=== PATIENT | female | born 1935 | race Caucasian/White ===

== ENCOUNTER 2018-06-19 11:09 | Observation (INO) | payer OTHER ==
[2018-06-19] MEDS ORDERED: ALBUTEROL 2.5 MG/3 ML NEB SOL IH PRN (12:21)
[2018-06-19 12:31] VITALS: O2SAT 99; BMI 34.4
[2018-06-19 12:40] LABS: Absolute Lymphocytes (CBC) 1.3 K/uL (0.7-4.9); Absolute Monocytes 0.4 K/uL (0.1-1.3); Absolute Neutrophil 3.5 K/uL (1.8-8.0); Basophils % 0.6 % (0-1.3); Eosinophils % 3.6 % (0-4.4); Hematocrit 42.5 % (36.0-45.0); Lymphocytes % 23.7 % (15.3-44.8); MCH 29.8 pg (27.0-35.0); MCV 88.6 fL (80-100); Monocytes % 7.3 % (3.3-12.3); RBC Red Blood Cell Count 4.79 M/uL (3.86-4.86)
[2018-06-19 12:54] LABS: Protime INR 0.92
[2018-06-19] MEDS ORDERED: LOPERAMIDE HCL 2 MG CAPSULE PO PRN (13:00)
[2018-06-19] MEDS ORDERED: ONDANSETRON 4 MG/2 ML VIAL IV PRN (13:00)
[2018-06-19] MEDS ORDERED: DIPHENHYDRAMINE 25 MG TAB/CAP PO PRN (13:00)
[2018-06-19] MEDS ORDERED: NACHLORIDE 0.45% 1,000 ML IV SCH (13:00)
[2018-06-19] MEDS ORDERED: ONDANSETRON 4 MG (ODT) TAB PO PRN (13:00)
[2018-06-19] MEDS ORDERED: POLYETHYL GLY 3350 17 GM/DOSE PO PRN (13:00)
[2018-06-19 13:02] LABS: ALT/SGPT 35 U/L (12-78); AST/SGOT 21 U/L (15-37); Alkaline Phosphatase 109 U/L (45-117); BUN Blood Urea Nitrogen 18 mg/dL (7-18); Bicarbonate 30 mmol/L (21-32); Bilirubin Direct 0.2 mg/dL (0-0.2); Bilirubin Total 0.8 mg/dL (0.2-1.0); CKMB Creatine Kinase MB 1.8 ng/mL (0.3-3.6); Creatine Phosphokinase 103 U/L (26-192); Glucose Level 169 mg/dL (74-106); Magnesium 2.1 mg/dL (1.8-2.4); Phosphorus 2.9 mg/dL (2.5-4.9); Potassium 4.6 mmol/L (3.5-5.1); Protein, Total 7.5 g/dL (6.4-8.2); Sodium Level 140 mmol/L (136-145); Thyroid Stimulating Hormone 0.309 uIU/mL (0.360-3.740); Troponin I < 0.02 ng/mL (0.0-0.045)
--- NOTE | 2018-06-19 14:11 | RAD REPORT ---
EXAM DESCRIPTION: RAD - Chest Pa And Lat (2 Views) - 06/19/2018 2:03 pm CLINICAL HISTORY: chest pain Chest pain. COMPARISON: CHEST PA AND LAT 2 VIEW dated 05/03/2015 FINDINGS: The lungs are emphysematous but clear. The heart is normal in size. No displaced fractures . IMPRESSION: COPD.
[2018-06-19] MEDS: ENOXAPARIN 80 MG/0.8 ML SQ SCH ×2 (14:12→22:28)
[2018-06-19] MEDS: IPRATROPIUM BROM 0.5MG/2.5ML IH SCH ×2 (15:05→20:12)
[2018-06-19] MEDS: LEVALBUTEROL 1.25 MG/3 ML NEB IH SCH ×2 (15:05→20:00)
[2018-06-19] MEDS ORDERED: GLUCAGON 1 MG/VIAL IM PRN (15:57)
[2018-06-19] MEDS ORDERED: D50W 25 GM/50 ML SYRINGE IV PRN (15:57)
[2018-06-19] MEDS: INSULIN -REGULAR HUMAN 50 UNIT/0.5 ML ML SQ SCH ×3 (16:30→22:38)
[2018-06-19 16:42] LABS: Urine Appearance CLEAR; Urine Bilirubin NEGATIVE (NEG); Urine Blood NEGATIVE (NEG); Urine Color YELLOW; Urine Glucose TRACE (NEG); Urine Protein NEGATIVE (NEG); Urine Urobilinogen 0.2 mg/dL (0.2-1.0)
[2018-06-19 16:51] LABS: Urine Microscopic Reflex NO UMIC
[2018-06-19] MEDS: ACETAMINOPHEN 325 MG TABLET PO PRN (16:55)
[2018-06-19 17:03] LABS: UR MICROALBUMIN 0.7 mg/dL (< 1.9)
[2018-06-19] MEDS ORDERED: HOME MED 1 EA UNK (Albuterol Inhaler [Ventolin Inhaler*] 2 PUFF) IN PRN (17:03)
[2018-06-19] MEDS ORDERED: HOME MED 1 EA UNK (Prednisone [Sterapred Ds] 10 MG) PO PRN (17:03)
--- NOTE | 2018-06-19 19:25 | EKG ---
Test Date: 2018-06-19 Test Time: 11:55:03 Rail Track Maintainer: BG MEASUREMENT RESULTS: Intervals: Rate: 74 NM: 170 QRSD: 92 QT: 394 QTc: 437 [place]: P: 57 NM: 170 QRS: 8 T: 74 INTERPRETIVE STATEMENTS: Normal sinus rhythm Anteroseptal infarct, age undetermined Abnormal ECG No previous ECG available for comparison Electronically Signed On 06-19-18 19:22:51 CDT by Zay Melendrez
[2018-06-19 20:47] LABS: CKMB Creatine Kinase MB 1.5 ng/mL (0.3-3.6); Creatine Phosphokinase 97 U/L (26-192); Troponin I < 0.02 ng/mL (0.0-0.045)
[2018-06-19] MEDS ORDERED: HOME MED 1 EA UNK (Simvastatin [Simvastatin] 20 MG) PO SCH (21:00)
[2018-06-19] MEDS ORDERED: ATORVASTATIN 10 MG TAB PO SCH (21:00)
[2018-06-20] MEDS: LEVALBUTEROL 1.25 MG/3 ML NEB IH SCH ×2 (02:00→08:10)
[2018-06-20] MEDS: IPRATROPIUM BROM 0.5MG/2.5ML IH SCH ×2 (02:00→08:10)
[2018-06-20] MEDS: ACETAMINOPHEN 325 MG TABLET PO PRN ×2 (03:33→10:41)
[2018-06-20 04:43] LABS: Absolute Lymphocytes (CBC) 1.8 K/uL (0.7-4.9); Absolute Monocytes 0.5 K/uL (0.1-1.3); Absolute Neutrophil 2.7 K/uL (1.8-8.0); Basophils % 0.9 % (0-1.3); Eosinophils % 5.3 % (0-4.4); Hematocrit 38.8 % (36.0-45.0); Lymphocytes % 33.3 % (15.3-44.8); MCH 30.6 pg (27.0-35.0); MCV 88.5 fL (80-100); MPV 8.1 fL (7.6-11.3); Monocytes % 9.5 % (3.3-12.3); RBC Red Blood Cell Count 4.38 M/uL (3.86-4.86)
[2018-06-20 04:51] LABS: Potassium 3.6 mmol/L (3.5-5.1)
[2018-06-20 04:56] LABS: CKMB Creatine Kinase MB 1.7 ng/mL (0.3-3.6); Creatine Phosphokinase 127 U/L (26-192); Troponin I < 0.02 ng/mL (0.0-0.045)
[2018-06-20] MEDS ORDERED: PANTOPRAZOLE 40MG TABLET PO SCH (07:30)
[2018-06-20] MEDS: INSULIN -REGULAR HUMAN 50 UNIT/0.5 ML ML SQ SCH ×2 (07:30→11:30)
[2018-06-20] MEDS ORDERED: METFORMIN ER 500 MG TAB PO SCH (08:00)
[2018-06-20] MEDS ORDERED: GLIMEPIRIDE 2 MG TABLET PO SCH (08:00)
[2018-06-20] MEDS ORDERED: REGADENOSON 0.4 MG/5 ML SYR IV ONE (08:10)
[2018-06-20] MEDS ORDERED: ASPIRIN 81 MG CHEWABLE TABLET PO SCH (09:00)
[2018-06-20] MEDS ORDERED: DRISDOL (VITAMIN D=ERGOCALCIFEROL) 50000 UNIT CAP PO SCH (09:00)
[2018-06-20] MEDS ORDERED: POTASSIUM 25 MEQ EFFERV TAB PO ONE (09:00)
[2018-06-20] MEDS ORDERED: CLOPIDOGREL 75 MG TABLET PO SCH (09:00)
[2018-06-20] MEDS ORDERED: HOME MED 1 EA UNK (Umeclidinium Brm/Vilanterol Tr [Anoro Ellipta 62.5-25 Mcg Inh] 1 PUFF) IN SCH (09:00)
[2018-06-20] MEDS ORDERED: HOME MED 1 EA UNK (Omeprazole [Prilosec] 40 MG) PO SCH (09:00)
[2018-06-20] MEDS ORDERED: MAXZIDE (HCTZ 25/TRIAMTERENE 37.5MG) TAB PO SCH (09:00)
[2018-06-20] MEDS: ENOXAPARIN 80 MG/0.8 ML SQ SCH (10:45)
--- NOTE | 2018-06-20 11:10 | RAD REPORT ---
EXAM DESCRIPTION: NM - Rest Stress Cardiac Imaging - 06/20/2018 10:30 am CLINICAL HISTORY: Chest pain COMPARISON: None. TECHNIQUE: The patient was administered 10.8 mCi of Tc 99m Sestamibi prior to resting SPECT imaging of the heart. The patient was then administered 31.1 mCi of Tc 99m Sestamibi following exercise or ph armacologic stress. Multiplanar SPECT images were reviewed. FINDINGS: The end diastolic volume is 60 ml, the end systolic volume is 15 ml, and the ejection frac tion is 75 %. No stress-induced ischemic changes are identifiable. Diminished activity along the inferior wall is b elieved to be attenuation artifact from diaphragm. No ventricular dilatation. IMPRESSION: No stress-induced ischemia or other significant finding. Ventricular volumes and ejection fraction are normal range.
[2018-06-20 12:45] VITALS: BP 172/65; TEMP 98
--- NOTE | 2018-06-20 15:44 | ECHO ---
HEIGHT: 5 ft 2 in WEIGHT: 185 lb 11.2 oz DATE OF STUDY: 06/20/[address]: Zay Melendrez MD 2-DIMENSIONAL: YES M.MODE: YES DOPPLER: YES COLOR FLOW: YES TDS: YES PORTABLE: DEFINITY: BUBBLE STUDY: DIAGNOSIS: CHEST PAIN CARDIAC HISTORY: CATHERIZATION: NO SURGERY: NO PROSTHETIC VALVE: NO PACEMAKER: NO MEASUREMENTS (cm) DIASTOLIC (NORMALS) SYSTOLIC (NORMALS) IVSd 1.1 (0.6-1.2) LA Diam 3.7 (1.9-4.0) LVEF 68% LVIDd 3.7 (3.5-5.7) LVIDs 2.3 (2.0-3.5) %FS 37% LVPWd 1.1 (0.6-1.2) Ao Diam 3.1 (2.0-3.7) 2 DIMENSIONAL ASSESSMENT: RIGHT ATRIUM: NORMAL LEFT ATRIUM: NORMAL RIGHT VENTRICLE: NORMAL LEFT VENTRICLE: NORMAL TRICUSPID VALVE: NORMAL MITRAL VALVE: NORMAL PULMONIC VALVE: NORMAL AORTIC VALVE: NORMAL PERICARDIAL EFFUSION: NONE AORTIC ROOT: NORMAL LEFT VENTRICULAR WALL MOTION: NORMAL DOPPLER/COLOR FLOW: NORMAL COMMENTS: NORMAL TWO DIMENSIONAL ECHOCARDIOGRAM WITH DOPPLER. NO WALL MOTION ABNORMALITY. NO EFFUSION. TECHNOLOGIST: RILEY HARMON
--- NOTE | 2018-06-20 15:53 | TREADPHA ---
DX: CHEST PAIN Date of Study: 06/20/2018 Ht: 5 2 Wt: 185 lb 11.2 oz Consulting Physician: WILFREDO MEDICATIONS: TYLENOL, ASPIRIN, PROVENTIL, PLAVIX, DEXTROSE, LOVENOX, AMARYL, GLUCAGEN, ATROVENT, ZOFRAN, PROTONIX. HISTORY: 82 YEAR OLD FEMALE WITH COMPLAINTS OF CHEST PAIN. MEDICAL HISTORY OF COPD, BREAST AND LUNG CANCER, CORONARY ARTERY DISEASE, DIABETES MELLITUS, HYPERTENSION AND TRANSIENT ISCHEMIC ATTACK. PHYSICIAL EXAMINATION: RESTING B.P.: 181/84 RESTING H.R.: 82 RESTING EKG: NORMAL SINUS RHYTHM, POSSIBLE OLD ANTERIOR MYOCARDIAL INFARCTION. PROTOCOL: LEXISCAN EXERCISE TIME: 3:30 B.P. AT PEAK STRESS: 157/74 IMPRESSION: LEXISCAN STRESS TEST PERFORMED. CARDIOLITE INJECTED PER PROTOCOL. SEE NUCLEAR MEDICINE REPORT. NO SUPRAVENTRICULAR OR VENTRICULAR TACHYCARDIA. ONE PREMATURE VENTRICULAR COMPLEX PRIOR TO INJECTION OF LEXISCAN. DENIES ANY CHEST PAIN.
--- NOTE | 2018-06-22 07:04 | CON ---
Date of Consultation: 06/20/[address] Diaz's service on 06/19/2018. Reason For Consultation: Chest pain. History Of Present Illness: The patient is an 82-year-old. She has multiple medical problems includ ing history of lung cancer and breast cancer and has been having back pain for about a month that rad iated to the chest. No nausea, vomiting, diaphoresis, PND, orthopnea, pedal edema, palpitations, or syncope. Pain was stabbing. Allergies: SHE IS ALLERGIC TO AMOXICILLIN AND CODEINE. Review of Systems: Negative. Social History: Negative. Family History: Noncontributory. Past Medical History: Include diabetes, COPD, gastroesophageal reflux disease, hypertension, and dys lipidemia. Medications: Include inhalers, Plavix, glimepiride, metformin, Prilosec, triamterene with hydrochlor othiazide, and Zocor. Physical Examination: General: Very pleasant, alert, oriented x3. No acute distress. Sinus rhythm, afebrile. HEENT: Negative. Neck: Supple with no bruit. Chest: Clear to auscultation and percussion. Cardiac Exam: Revealed a regular rhythm and rate with an S4 gallops. Aortic sclerosis murmur. No g allops or rubs. Abdomen: Benign. Extremities: Revealed no clubbing, cyanosis, or edema. Diagnostic Data: Her diagnostic data were pretty normal except for a TSH, being slightly low at 0.3. Her glucose is 166. Impression And Plan: 1.Atypical chest pain, most likely gastric or gastroesophageal in nature, certainly could be related to her thoracic spine as well. 2.Diabetes. 3.Gastroesophageal reflux disease. 4.Dyslipidemia. 5.Hypertension. 6.Chronic obstructive pulmonary disease. 7.History of lung cancer. 8.History of breast cancer. I recommend an echocardiogram and Lexiscan on Ms. Hernandez before she goes home. I will discuss the case further with Dr. Diaz. I agree with his present assessment and plan. VILLA/BERT Voice ID: [id number] Report ID: [id number]
== END 2018-06-20 13:05 | disposition home or self-care (01) ==
LOC: 4TH 11:18
PROVIDERS: ADMIT Internal Medicine; ATTEND Internal Medicine
DX: R07.89 Other chest pain (principal); E11.9 Type 2 diabetes mellitus without complications; J44.9 Chronic obstructive pulmonary disease, unspecified; K21.9 Gastro-esophageal reflux disease without esophagitis; I10 Essential (primary) hypertension; E78.5 Hyperlipidemia, unspecified; Z85.118 Personal history of other malignant neoplasm of bronchus and lung; Z85.3 Personal history of malignant neoplasm of breast; Z88.0 Allergy status to penicillin
CPT/HCPCS: 36415 ×2; 71046; 78452; 80048 ×2; 80076; 81003; 82043; 82306; 82550 ×3; 82553 ×3; 82570; 82607; 82962 ×5; 83036; 83735 ×2; 84100; 84443; 84484 ×3; 85025 ×2; 85610; 85730; 87086; 87088; 93005; 93017; 93306; 94640; A9500; G0378; G0379; J1650 ×3; J2785

== ENCOUNTER 2019-12-22 12:48 | Emergency (ER) | payer OTHER ==
[2019-12-22] MEDS ORDERED: ONDANSETRON 4 MG/2 ML VIAL ONE ×2 (13:14→16:09)
[2019-12-22] MEDS ORDERED: MORPHINE 4 MG/ML SYR ONE ×3 (13:14→16:09)
--- NOTE | 2019-12-22 14:06 | RAD REPORT ---
EXAM DESCRIPTION: RAD - Knee Right 3 View - 12/22/2019 2:00 pm CLINICAL HISTORY: Right knee pain status post injury FINDINGS: Comminuted markedly displaced fracture involves the distal right femur. No gross dislocation seen
[2019-12-22 14:40] LABS: Protime INR 0.96
[2019-12-22 14:50] LABS: Absolute Lymphocytes (CBC) 0.7 K/uL (0.7-4.9); Basophils % 0.3 % (0-1.3); Hematocrit 42.4 % (36.0-45.0); Lymphocytes % 6.6 % (15.3-44.8); MPV 7.8 fL (7.6-11.3); RBC Red Blood Cell Count 4.88 M/uL (3.86-4.86)
[2019-12-22 15:01] LABS: BUN Blood Urea Nitrogen 22 mg/dL (7-18); Bicarbonate 28 mmol/L (21-32); Glucose Level 194 mg/dL (74-106); Magnesium 2.2 mg/dL (1.8-2.4); NT PRO-BNP 250 pg/mL (<450); Potassium 4.2 mmol/L (3.5-5.1); Sodium Level 142 mmol/L (136-145); Troponin I < 0.02 ng/mL (0.0-0.045)
--- NOTE | 2019-12-22 15:19 | ER ---
Nurse's Notes [facility] Name: Yang Hernandez Age: 84 yrs Sex: Female : 1935 Arrival Date: 12/22/2019 Time: 12:51 Bed 6 Private MD: Diagnosis: Displaced fracture of right distal femur Presentation: 12/21 12:52 Chief complaint: EMS states: MECHANICAL FALL AT HOME. Care prior to arrival: bp Medication(s) given: FENTANYL 80MCG IV initiated. 20 GA, in the left antecubital area. Mechanism of Injury: Fall from standing position. Trauma event details: Injury occurred in the [facility], Injury occurred: at home. Injury occurred: December 22, 2019 Injury occurred at: 12:30. 12:52 Acuity: BALTAZAR 3 bp 12:52 Method Of Arrival: EMS: [facility] bp 12:53 Coronavirus screen: Patient denies fever greater than 100.4F, cough, shortness of bp breath, or difficulty breathing. Ebola Screen: No symptoms or risks identified at this time. Initial Sepsis Screen: Does the patient meet any 2 criteria? No. Patient's initial sepsis screen is negative. Does the patient have a suspected source of infection? No. Patient's initial sepsis screen is negative. Risk Assessment: Do you want to hurt yourself or someone else? Patient reports no desire to harm self or others. Triage Assessment: 13:02 General: Appears in no apparent distress. uncomfortable, obese, Behavior is bp cooperative, appropriate for age, anxious. Pain: Complains of pain in right leg and right knee. EENT: No deficits noted. Neuro: No deficits noted. Cardiovascular: No deficits noted. Respiratory: No deficits noted. GI: No signs and/or symptoms were reported involving the gastrointestinal system. : No signs and/or symptoms were reported regarding the genitourinary system. Derm: No deficits noted. Musculoskeletal: Range of motion: limited in right knee Swelling present in right knee. Trauma Activation: Not Applicable Physician: ED Physician; Name: ; Notified At: ; Arrived At: Physician: General Surgeon; Name: ; Notified At: ; Arrived At: Physician: Radiology; Name: ; Notified At: ; Arrived At: Physician: Respiratory; Name: ; Notified At: ; Arrived At: Physician: Lab; Name: ; Notified At: ; Arrived At: Historical: - Allergies: 13:02 Trimox; bp 13:02 Tylox; bp - Home Meds: 13:02 acetaminophen-codeine 300-15 mg Oral tab 1 tab every 6 hours [Active]; duloxetine 30 mg bp oral cpDR 1 cap once daily [Active]; Jardiance 25 mg oral tab 1 tab once daily [Active]; triamterene-hydrochlorothiazid 37.5-25 mg Oral tab 1 tab once daily [Active]; clopidogrel 75 mg oral tab 1 tab once daily [Active]; omeprazole 40 mg Oral cpDR 1 cap once daily [Active]; Anoro Ellipta 62.5-25 mcg/actuation inhalation dsdv 1 puff once daily [Active]; simvastatin 20 mg Oral tab 1 tab once daily [Active]; - PMHx: 13:02 Diabetes - NIDDM; Hypertension; GERD; Depression; High Cholesterol; bp - PSHx: 13:02 Mastectomy, Left; Mastectomy, Right; Hysterectomy; bp - Immunization history:: Adult Immunizations unknown. - Social history:: Smoking status: Patient denies any tobacco usage or history of. Screenin:00 Abuse screen: Denies threats or abuse. Denies injuries from another. Nutritional bp screening: No deficits noted. Tuberculosis screening: No symptoms or risk factors identified. Fall Risk Fall in past 12 months (25 points). No secondary diagnosis (0 pts). IV access (20 points). Assessment: 13:00 General: SEE TRIAGE NOTE. bp 13:42 Reassessment: x-ray at bedside. em 14:12 Reassessment: PER PROVIDER, RLE XRAY GROSSLY ABNORMAL. NO ORTHO ACIDITY TESTER, TRANSFER bp PENDING. 15:34 Reassessment: REPORT TO SHANTHI MELVIN AT [facility]. TRANSPORT PENDING. bp 16:01 Reassessment: [facility] AT B/S FOR TRANSPORT. bp Vital Signs: 12:53 BP 181 / 79; Pulse 81; Resp 16; Temp 97.9; Pulse Ox 97% ; bp 14:12 BP 160 / 84; Pulse 87; Resp 16; Pulse Ox 97% ; bp 15:35 BP 105 / 87; Pulse 89; Resp 16; Pulse Ox 95% ; bp 16:02 BP 161 / 87; Pulse 87; Resp 19; Temp 98; Pulse Ox 96% ; bp 16:05 BP 136 / 68; Pulse 78; Resp 18; Pulse Ox 99% on R/A; Pain 8/10; em ED Course: 12:51 Patient arrived in ED. iw 12:52 Alin Cunningham, NGOIZ is Primary Nurse. bp 12:53 Lynnette Ireland FNP-C is PHCP. kb 12:53 Abbe Ayon MD is Attending Physician. kb 12:53 Triage completed. bp 13:00 Patient has correct armband on for positive identification. Bed in low position. Call bp light in reach. Side rails up X2. 13:00 Maintain EMS IV. Dressing intact. Good blood return noted. Site clean \T\ dry. Gauge \T\ bp site: 20 GAUGE LEFT AC. 13:02 Arm band placed on. bp 14:00 Knee Right 3 View In Process Unspecified. EDMS 14:20 transfer initiated with OLIVIA from the [facility] Transfer [facility]. eb 14:33 connected the orthopedic nutrition consultant for [facility] with Lynnette INTERNET NETWORK SPECIALIST for patient eb transfer consultation. 14:52 Chest Single View In Process Unspecified. EDMS 14:52 connected the hospitalist nutrition consultant for [facility] with Lynnette INTERNET NETWORK SPECIALIST for patient eb transfer consultation. 15:00 administrative approval given by OLIVIA Murphy / patient has been accepted to the [facility] [address] 1622/ Dr. Foster has accepted the patient in transfer/ report to be called to [phone]. 15:27 Landis cath inserted, using sterile technique, 18 Fr., by plant operations vice president, balloon inflated, bp urine specimen collected. 15:36 No provider procedures requiring assistance completed. Patient transferred, IV remains bp in place. Administered Medications: 13:13 Drug: morphine 4 mg Route: IVP; Site: left antecubital; bp 16:04 Follow up: Response: Pain is decreased bp 13:13 Drug: Zofran (Ondansetron) 4 mg Route: IVP; Site: left antecubital; bp 16:03 Follow up: Response: No adverse reaction bp 14:22 Drug: morphine 4 mg Route: IVP; Site: left antecubital; em 15:37 Follow up: Response: Pain is decreased bp 16:05 Drug: Zofran (Ondansetron) 4 mg Route: IVP; Site: left antecubital; em 16:10 Follow up: Response: Medication administered at discharge. em 16:07 Drug: morphine 4 mg Route: IVP; Site: left antecubital; em 16:10 Follow up: Response: Medication administered at discharge. em Outcome: 15:18 ER care complete, transfer ordered by . kb 15:36 Transferred by ground EMS to [facility], Transfer form completed. bp 15:36 Condition: stable 15:36 Instructed on the need for admit. 16:15 Patient left the ED. bp Signatures: Dispatcher [employer] EDLynnette Brian, SYSTEM MANAGER-C SYSTEM MANAGER-Etienne Hammonds RN RN Yenny Mohamud RN RN iw Peltier, Brian, RN RN Betsy Robin
--- NOTE | 2019-12-22 15:19 | RAD REPORT ---
EXAM DESCRIPTION: Edward Single View3 2:48 pm CLINICAL HISTORY: Chest pain COMPARISON: 2017 FINDINGS: Postsurgical changes involve the left lung. The lungs appear clear of acute infiltrate. The heart is normal size IMPRESSION: No acute abnormalities displayed
--- NOTE | 2019-12-22 15:20 | EDPHYS ---
Physician Documentation [facility] Name: Yang Hernandez Age: 84 yrs Sex: Female : 1935 Arrival Date: 12/22/2019 Time: 12:51 Bed 6 Private MD: ED Physician Abbe Aoyn HPI: 12/21 12:53 This 84 yrs old Female presents to ER via EMS with complaints of Fall Injury. kb 12:53 Details of fall: The patient fell from an upright position, while walking. Onset: The kb symptoms/episode began/occurred just prior to arrival. Associated injuries: The patient sustained right knee, decreased range of motion, ecchymosis, painful injury, swelling. Severity of symptoms: At their worst the symptoms were moderate, in the emergency department the symptoms are unchanged. The patient has not experienced similar symptoms in the past. The patient has not recently seen a physician. Pt was walking with walker and tripped over a rug. Reports she landed with all weight on right knee. Denies any other injury. Historical: - Allergies: 13:02 Trimox; bp 13:02 Tylox; bp - Home Meds: 13:02 acetaminophen-codeine 300-15 mg Oral tab 1 tab every 6 hours [Active]; duloxetine 30 mg bp oral cpDR 1 cap once daily [Active]; Jardiance 25 mg oral tab 1 tab once daily [Active]; triamterene-hydrochlorothiazid 37.5-25 mg Oral tab 1 tab once daily [Active]; clopidogrel 75 mg oral tab 1 tab once daily [Active]; omeprazole 40 mg Oral cpDR 1 cap once daily [Active]; Anoro Ellipta 62.5-25 mcg/actuation inhalation dsdv 1 puff once daily [Active]; simvastatin 20 mg Oral tab 1 tab once daily [Active]; - PMHx: 13:02 Diabetes - NIDDM; Hypertension; GERD; Depression; High Cholesterol; bp - PSHx: 13:02 Mastectomy, Left; Mastectomy, Right; Hysterectomy; bp - Immunization history:: Adult Immunizations unknown. - Social history:: Smoking status: Patient denies any tobacco usage or history of. ROS: 13:23 Constitutional: Negative for fever, chills, and weight loss, Cardiovascular: Negative kb for chest pain, palpitations, and edema, Respiratory: Negative for shortness of breath, cough, wheezing, and pleuritic chest pain, Abdomen/GI: Negative for abdominal pain, nausea, vomiting, diarrhea, and constipation, Back: Negative for injury and pain, Skin: Negative for injury, rash, and discoloration, Neuro: Negative for headache, weakness, numbness, tingling, and seizure. 13:23 MS/extremity: Positive for injury or acute deformity, ecchymosis, pain, swelling, tenderness. Exam: 13:23 Constitutional: This is a well developed, well nourished patient who is awake, alert, kb and in no acute distress. Head/Face: Normocephalic, atraumatic. ENT: Nares patent. No nasal discharge, no septal abnormalities noted. Tympanic membranes are normal and external auditory canals are clear. Oropharynx with no redness, swelling, or masses, exudates, or evidence of obstruction, uvula midline. Mucous membranes moist. Neck: Trachea midline, no thyromegaly or masses palpated, and no cervical lymphadenopathy. Supple, full range of motion without nuchal rigidity, or vertebral point tenderness. No Meningismus. Chest/axilla: Normal chest wall appearance and motion. Nontender with no deformity. No lesions are appreciated. Cardiovascular: Regular rate and rhythm with a normal S1 and S2. No gallops, murmurs, or rubs. Normal PMI, no JVD. No pulse deficits. Respiratory: Lungs have equal breath sounds bilaterally, clear to auscultation and percussion. No rales, rhonchi or wheezes noted. No increased work of breathing, no retractions or nasal flaring. Abdomen/GI: Soft, non-tender, with normal bowel sounds. No distension or tympany. No guarding or rebound. No evidence of tenderness throughout. Skin: Warm, dry with normal turgor. Normal color with no rashes, no lesions, and no evidence of cellulitis. Neuro: Awake and alert, GCS 15, oriented to person, place, time, and situation. Cranial nerves II-XII grossly intact. Motor strength 5/5 in all extremities. Sensory grossly intact. Cerebellar exam normal. Normal gait. 13:23 Musculoskeletal/extremity: Extremities: grossly normal except: noted in the right knee: decreased ROM, ecchymosis, pain, swelling, tenderness, ROM: limited active range of motion due to pain, limited passive range of motion due to pain, in the right knee, Circulation is intact in all extremities. Sensation intact. Weight bearing: is unable to bear weight. 14:20 ECG was reviewed by the Attending Physician. kb Vital Signs: 12:53 BP 181 / 79; Pulse 81; Resp 16; Temp 97.9; Pulse Ox 97% ; bp 14:12 BP 160 / 84; Pulse 87; Resp 16; Pulse Ox 97% ; bp 15:35 BP 105 / 87; Pulse 89; Resp 16; Pulse Ox 95% ; bp 16:02 BP 161 / 87; Pulse 87; Resp 19; Temp 98; Pulse Ox 96% ; bp 16:05 BP 136 / 68; Pulse 78; Resp 18; Pulse Ox 99% on R/A; Pain 8/10; em MDM: 12:55 Patient medically screened. kb 13:23 Data reviewed: vital signs, nurses notes. Data interpreted: Pulse oximetry: on room air kb is 97 %. Interpretation: normal. 13:30 ED course: Daughter is Sejal Chua [phone]. kb 14:20 Counseling: I had a detailed discussion with the patient and/or guardian regarding: the historical points, exam findings, and any diagnostic results supporting the discharge/admit diagnosis, radiology results, the need to transfer to another facility, [facility] does not immediately have the required specialist. 14:36 ED course: Dr De Oliveira (orthopedist) accepts consult at [facility]. kb 15:14 ED course: Pt accepted for transfer by Dr Foster (hospitalist). . ED course: Daughter updated on pt status and transfer to [facility]. Questions answered and daughter will meet pt at [facility]. 12/21 12:55 Order name: Knee Right 3 View XRAY kb 12/21 14:36 Order name: Basic Metabolic Panel; Complete Time: 15:03 EDMS 12/21 14:36 Order name: Troponin I; Complete Time: 15:03 EDMS 12/21 14:36 Order name: NT PRO-BNP; Complete Time: 15:03 EDMS 12/21 14:36 Order name: Magnesium; Complete Time: 15:03 EDMS 12/21 14:36 Order name: CBC with Automated Diff; Complete Time: 15:39 EDMS 12/21 14:36 Order name: Protime (+INR); Complete Time: 14:42 EDMS 12/21 15:39 Order name: CBC Smear Scan; Complete Time: 15:39 EDMS 12/21 13:37 Order name: Knee Right 3 View; Complete Time: 14:12 EDMS 12/21 14:13 Order name: XRAY Chest (1 view) kb 12/21 14:13 Order name: EKG; Complete Time: 14:56 kb 12/21 14:13 Order name: Cardiac monitoring; Complete Time: 14:15 kb 12/21 14:13 Order name: EKG - Nurse/Tech; Complete Time: 14:14 kb 12/21 14:13 Order name: IV Saline Lock; Complete Time: 14:24 kb 12/21 14:13 Order name: Labs collected and sent; Complete Time: 14:24 kb 12/21 14:13 Order name: O2 Per Protocol; Complete Time: 14:14 kb 12/21 14:13 Order name: O2 Sat Monitoring; Complete Time: 14:14 kb 12/21 14:21 Order name: Chest Single View; Complete Time: 15:24 EDMS EC:20 Rate is 85 beats/min. Rhythm is regular. QRS [place] is Normal. WA interval is normal at kb 156 msec. QRS interval is normal at 96 msec. QT interval is normal at 410 msec. Administered Medications: 13:13 Drug: morphine 4 mg Route: IVP; Site: left antecubital; bp 16:04 Follow up: Response: Pain is decreased bp 13:13 Drug: Zofran (Ondansetron) 4 mg Route: IVP; Site: left antecubital; bp 16:03 Follow up: Response: No adverse reaction bp 14:22 Drug: morphine 4 mg Route: IVP; Site: left antecubital; em 15:37 Follow up: Response: Pain is decreased bp 16:05 Drug: Zofran (Ondansetron) 4 mg Route: IVP; Site: left antecubital; em 16:10 Follow up: Response: Medication administered at discharge. em 16:07 Drug: morphine 4 mg Route: IVP; Site: left antecubital; em 16:10 Follow up: Response: Medication administered at discharge. em Disposition: 17:04 Co-signature as Attending Physician, Abbe Ayon MD I agree with the assessment and kdr plan of care. Disposition: 12/22/19 15:18 Transfer ordered to [facility]. Diagnosis is Displaced fracture of right distal femur. - Reason for transfer: Higher level of care. - Accepting physician is Dr Foster. - Condition is Stable. - Problem is new. - Symptoms are unchanged. Signatures: Dispatcher [employer] EDMS Beka Lynnette, ADVANCED RESEARCH PROGRAMS DIRECTOR-C ADVANCED RESEARCH PROGRAMS DIRECTOR-Ckb Abbe Ayon MD MD kdr Munoz, Edgar, NGOZI RN Alin Magana, NGOZI RN bp Corrections: (The following items were deleted from the chart) 15: 14:55 BASIC METABOLIC PANEL+C.LAB.BRZ ordered. EDMS EDMS 15:09 14:55 CBC+H.LAB.BRZ ordered. EDMS EDMS 15:09 14:55 MAGNESIUM+C.LAB.BRZ ordered. EDMS EDMS 15:09 14:55 PROBNP+C.LAB.BRZ ordered. EDMS EDMS 15:09 14:55 PROTIME (+INR)+COAG.LAB.BRZ ordered. EDMS EDMS 15:09 14:55 TROPONIN (EMERG DEPT USE ONLY)+C.LAB.BRZ ordered. EDMS EDMS 16:15 15:18 12/22/2019 15:18 Transfer ordered to [facility]. bp Diagnosis is Displaced fracture of right distal femur. Reason for transfer: Higher level of care. Accepting physician is Dr Foster. Condition is Stable. Problem is new. Symptoms are unchanged. kb
[2019-12-22 15:38] LABS: Platelet Estimate ADEQ; White Blood Cell Scan OK
[2019-12-22 15:39] LABS: Blood Morphology Comment NOT SEEN (NOT SEEN)
[2019-12-22 16:31] VITALS: TEMP 98
[2019-12-22 16:33] VITALS: BP 136/68; O2SAT 99
--- NOTE | 2019-12-23 08:59 | EKG ---
Test Date: 2019-12-22 Test Time: 14:15:22 Systems Applications Programming Lead: FELIPE MEASUREMENT RESULTS: Intervals: Rate: 85 VT: 156 QRSD: 96 QT: 410 QTc: 487 [place]: P: 72 VT: 156 QRS: 54 T: 96 INTERPRETIVE STATEMENTS: Normal sinus rhythm Anteroseptal infarct, age undetermined Abnormal ECG Compared to ECG 06/19/2018 11:55:03 No significant changes Electronically Signed On 12-23-19 08:57:45 CDT by Zay Melendrez
== END 2019-12-22 16:15 | disposition short-term general hospital (02) ==
LOC: ER 12:48
DX: S72.401A Unspecified fracture of lower end of right femur, initial encounter for closed fracture (principal); W18.30XA Fall on same level, unspecified, initial encounter; Y93.9 Activity, unspecified; Y92.9 Unspecified place or not applicable
CPT/HCPCS: 93005; 85025; 80048; 36415; 83735; 85610; 84484; 83880; 71045; 73562; 51702; 96375; 96374; 99285; J2405 ×2

== ENCOUNTER 2020-02-29 01:06 | Emergency (ER) | payer OTHER ==
--- OUTSIDE RECORDS SUMMARY | 2020-02-29 01:09 | XMS REPORT ---
:1935 Author Organization [facility] t Address [address] [place] [address] Dr. Ordaz [address] [place] [id number] Care Team Providers Name Role Phone SIVA DOUGLAS Attending Clinician Unavailable Sandy TRUONG Admitting Clinician Unavailable Problems This patient has no known problems. Allergies, Adverse Reactions, Alerts This patient has no known allergies or adverse reactions. Medications This patient has no known medications. Procedures This patient has no known procedures. Results Test Description Test Time Test Comments Results Result Comments Source POCT-GLUCOSE METER 2019-12-27 12:41:00 Test Item Value Reference Range Interpretation Comme [facility] POC-GLUCOSE METER (BEAKER) 146 mg/dL 70-110 H : TESTED AT [facility] [address] [facility] (test code = 1538) [place], [id number]: Plug Machine Operator/Techni sagar ID = [id number] for MCKEONEDSON Lynnette CBC W/PLT COUNT & AUTO [id number] 05:04:00 Test Item Value Reference Range Interpretation Comments WHITE BLOOD CELL COUNT 8.3 K/ L 3.5-10.5 (BEAKER) (test code = 775) RED BLOOD CELL COUNT 3.77 M/ L 3.93-5.22 L (BEAKER) (test code = 761) HEMOGLOBIN (BEAKER) 10.4 GM/DL 11.2-15.7 L (test code = 410) HEMATOCRIT (BEAKER) 33.3 % 34.1-44.9 L (test code = 411) MEAN CORPUSCULAR 88.3 fL 79.4-94.8 VOLUME (BEAKER) (test code = 753) MEAN CORPUSCULAR 27.6 pg 25.6-32.2 HEMOGLOBIN (BEAKER) (test code = 751) MEAN CORPUSCULAR 31.2 GM/DL 32.2-35.5 L HEMOGLOBIN CONC (BEAKER) (test code = 752) RED CELL DISTRIBUTION 15.2 % 11.7-14.4 H WIDTH (BEAKER) (test code = 412) PLATELET COUNT 301 K/CU MM 150-450 Discordant re sult (BEAKER) (test code = .clini kinza 756) correlation required. MEAN PLATELET VOLUME 9.3 fL 9.4-12.3 L (BEAKER) (test code = 754) NUCLEATED RED BLOOD 0 /100 WBC 0-0 CELLS (BEAKER) (test code = 413) NEUTROPHILS RELATIVE 75 % PERCENT (BEAKER) (test code = 429) LYMPHOCYTES RELATIVE 13 % PERCENT (BEAKER) (test code = 430) MONOCYTES RELATIVE 9 % PERCENT (BEAKER) (test code = 431) EOSINOPHILS RELATIVE 2 % PERCENT (BEAKER) (test code = 432) BASOPHILS RELATIVE 0 % PERCENT (BEAKER) (test code = 437) NEUTROPHILS ABSOLUTE 6.21 K/ L 1.56-6.13 H COUNT (BEAKER) (test code = 670) LYMPHOCYTES ABSOLUTE 1.08 K/ L 1.18-3.74 L COUNT (BEAKER) (test code = 414) MONOCYTES ABSOLUTE 0.74 K/ L 0.24-0.36 H COUNT (BEAKER) (test code = 415) EOSINOPHILS ABSOLUTE 0.16 K/ L 0.04-0.36 COUNT (BEAKER) (test code = 416) BASOPHILS ABSOLUTE 0.02 K/ L 0.01-0.08 COUNT (BEAKER) (test code = 417) IMMATURE 1 % 0-1 GRANULOCYTES-RELATIVE PERCENT (BEAKER) (test code = 2801) POCT-GLUCOSE [id number] 22:28:00 Test Item Value Reference Range Interpretation Comments POC-GLUCOSE METER 182 mg/dL 70-110 H : TESTED A T [facility] 67[address] (BEAKER) (test code = [facility], 1538) [address]: Plug Machine Operator/Techni sagar ID = [id number] for PE SHOLA SURESH POCT-GLUCOSE [id number] 17:52:00 Test Item Value Reference Range Interpretation Comments POC-GLUCOSE METER 177 mg/dL 70-110 H : TESTED A T [facility] [address] (BEAKER) (test code = [facility], 1538) [address]: Plug Machine Operator/Techni sagar ID = [id number] for PRABHAKAR ORDOÑEZ POCT-GLUCOSE [id number] 08:26:00 Test Item Value Reference Range Interpretation Comments POC-GLUCOSE METER 124 mg/dL 70-110 H : TESTED A T [facility] 67[address] (BEAKER) (test code = [facility], 153) [id number]: Plug Machine Operator/Techni sagar ID = [id number] for LORNE KEATING VITAMIN D, [id number] 05:15:00 Test Item Value Reference Range Interpretation Comments VITAMIN D 25-OH (BEAKER) (test code 7.0 ng/mL 6.6-49.9 = 2764) Effective 07/13/2017: Reference Range ChangeNew: 6.6-49.9 ng/mL Previous: 13.0-47.8 ng/mLRecommended Vitamin D Target Range: 30.0-40.0 ng/mLOperator ID - AJ MPOCT-GLUCOSE [id number] 18:08:00 Test Item Value Reference Range Interpretation Comments POC-GLUCOSE METER 130 mg/dL 70-110 H : TESTED A T [facility] 67[address] (BEAKER) (test code = [facility], 153) [address]: Plug Machine Operator/Techni sagar ID = [id number] for LORNE KEATING HEMOGLOBIN AND [id number] 16:49:00 Test Item Value Reference Range Interpretation Comments HEMOGLOBIN (BEAKER) (test code = 9.9 GM/DL 11.2-15.7 L 410) HEMATOCRIT (BEAKER) (test code = 31.2 % 34.1-44.9 L 411) Plug Machine Operator ID - [id number]-GLUCOSE [id number] 09:56:00 Test Item Value Reference Range Interpretation Comments POC-GLUCOSE METER 130 mg/dL 70-110 H : TESTED A T [facility] [address] (BEAKER) (test code = [facility], 153) [address]: Plug Machine Operator/Techni sagar ID = [id number] for MAGUI DAVIDSON BASIC METABOLIC [id number] 05:34:00 Test Item Value Reference Range Interpretation Comments SODIUM (BEAKER) 137 meq/L 136-145 (test code = 381) POTASSIUM (BEAKER) 3.8 meq/L 3.5-5.1 (test code = 379) CHLORIDE (BEAKER) 105 meq/L 98-107 (test code = 382) CO2 (BEAKER) (test 23 meq/L 22-29 code = 355) BLOOD UREA NITROGEN 15 mg/dL 7-21 (BEAKER) (test code = 354) CREATININE (BEAKER) 0.84 mg/dL 0.57-1.25 (test code = 358) GLUCOSE RANDOM 141 mg/dL 70-105 H (BEAKER) (test code = 652) CALCIUM (BEAKER) 8.7 mg/dL 8.4-10.2 (test code = 697) EGFR (BEAKER) (test 65 mL/min/1.73 ESTIMA DEVANG GFR IS code = 1092) sq m NOT ACCURATE CREATININE CLEARANCE IN PREDICTING GLOMERULAR FILTRATION RATE . ESTIMATED GFR I S NOT APPLICABLE FOR DIALYSIS PATIEN TS. Plug Machine Operator ID - [id number] (HEMOGRAM ONLY)2019-12-25 05:09:00 Test Item Value Reference Range Interpretation Comments WHITE BLOOD CELL COUNT (BEAKER) 9.2 K/ L 3.5-10.5 (test code = 775) RED BLOOD CELL COUNT (BEAKER) 3.37 M/ L 3.93-5.22 L (test code = 761) HEMOGLOBIN (BEAKER) (test code = 9.7 GM/DL 11.2-15.7 L 410) HEMATOCRIT (BEAKER) (test code = 30.3 % 34.1-44.9 L 411) MEAN CORPUSCULAR VOLUME (BEAKER) 89.9 fL 79.4-94.8 (test code = 753) MEAN CORPUSCULAR HEMOGLOBIN 28.8 pg 25.6-32.2 (BEAKER) (test code = 751) MEAN CORPUSCULAR HEMOGLOBIN CONC 32.0 GM/DL 32.2-35.5 L (BEAKER) (test code = 752) RED CELL DISTRIBUTION WIDTH 15.3 % 11.7-14.4 H (BEAKER) (test code = 412) PLATELET COUNT (BEAKER) (test 185 K/CU MM 150-450 code = 756) MEAN PLATELET VOLUME (BEAKER) 9.7 fL 9.4-12.3 (test code = 754) NUCLEATED RED BLOOD CELLS 0 /100 WBC 0-0 (BEAKER) (test code = 413) POCT-GLUCOSE [id number] 17:41:00 Test Item Value Reference Range Interpretation Comments POC-GLUCOSE METER 185 mg/dL 70-110 H : TESTED A T [facility] [address] (BEAKER) (test code = [facility], 1538) [address]: Plug Machine Operator/Techni sagar ID = [id number] for DA VIS, KEYAIRA POCT-GLUCOSE [id number] 12:53:00 Test Item Value Reference Range Interpretation Comments POC-GLUCOSE METER 135 mg/dL 70-110 H : TESTED A T [facility] 67[address] (BEAKER) (test code = [facility], 1538) [address]: Plug Machine Operator/Techni sagar ID = [id number] for DA VIS, KEYAIRA POCT-GLUCOSE [id number] 08:24:00 Test Item Value Reference Range Interpretation Comments POC-GLUCOSE METER 147 mg/dL 70-110 H : TESTED A T [facility] [address] (BEAKER) (test code = [facility], 1538) [address]: Plug Machine Operator/Techni sagar ID = [id number] for DA VIS, KEYAIRA BASIC METABOLIC [id number] 04:44:00 Test Item Value Reference Range Interpretation Comments SODIUM (BEAKER) 139 meq/L 136-145 (test code = 381) POTASSIUM (BEAKER) 3.8 meq/L 3.5-5.1 (test code = 379) CHLORIDE (BEAKER) 107 meq/L 98-107 (test code = 382) CO2 (BEAKER) (test 25 meq/L 22-29 code = 355) BLOOD UREA NITROGEN 15 mg/dL 7-21 (BEAKER) (test code = 354) CREATININE (BEAKER) 0.89 mg/dL 0.57-1.25 (test code = 358) GLUCOSE RANDOM 158 mg/dL 70-105 H (BEAKER) (test code = 652) CALCIUM (BEAKER) 8.5 mg/dL 8.4-10.2 (test code = 697) EGFR (BEAKER) (test 61 mL/min/1.73 ESTIMA DEVANG GFR IS code = 1092) sq m NOT ACCURATE CREATININE CLEARANCE IN PREDICTING GLOMERULAR FILTRATION RATE . ESTIMATED GFR I S NOT APPLICABLE FOR DIALYSIS PATIEN TS. Plug Machine Operator ID - [id number] (HEMOGRAM ONLY)2019-12-24 04:17:00 Test Item Value Reference Range Interpretation Comments WHITE BLOOD CELL COUNT (BEAKER) 9.8 K/ L 3.5-10.5 (test code = 775) RED BLOOD CELL COUNT (BEAKER) 4.07 M/ L 3.93-5.22 (test code = 761) HEMOGLOBIN (BEAKER) (test code = 11.2 GM/DL 11.2-15.7 410) HEMATOCRIT (BEAKER) (test code = 36.5 % 34.1-44.9 411) MEAN CORPUSCULAR VOLUME (BEAKER) 89.7 fL 79.4-94.8 (test code = 753) MEAN CORPUSCULAR HEMOGLOBIN 27.5 pg 25.6-32.2 (BEAKER) (test code = 751) MEAN CORPUSCULAR HEMOGLOBIN CONC 30.7 GM/DL 32.2-35.5 L (BEAKER) (test code = 752) RED CELL DISTRIBUTION WIDTH 15.2 % 11.7-14.4 H (BEAKER) (test code = 412) PLATELET COUNT (BEAKER) (test 209 K/CU MM 150-450 code = 756) MEAN PLATELET VOLUME (BEAKER) 9.4 fL 9.4-12.3 (test code = 754) NUCLEATED RED BLOOD CELLS 0 /100 WBC 0-0 (BEAKER) (test code = 413) POCT-GLUCOSE [id number] 21:38:00 Test Item Value Reference Range Interpretation Comments POC-GLUCOSE METER 131 mg/dL 70-110 H : TESTED A T [facility] 67[address] (BEAKER) (test code [facility], = 1538) [address]: Plug Machine Operator/Techni sagar ID = [id number] for ERICK LOGAN POCT-GLUCOSE [id number] 18:00:00 Test Item Value Reference Range Interpretation Comments POC-GLUCOSE METER 133 mg/dL 70-110 H : TESTED A T [facility] 67[address] (BEAKER) (test code = [facility], 1538) [address]: Plug Machine Operator/Techni sagar ID = [id number] for CHRISTIANA COLEMAN POCT-GLUCOSE [id number] 16:08:00 Test Item Value Reference Range Interpretation Comments POC-GLUCOSE METER 128 mg/dL 70-110 H : TESTED A T [facility] 67[address] (BEAKER) (test code = [facility], 1538) [address]: Plug Machine Operator/Techni sagar ID = [id number] for Margaret Weinstein, FLUORO, NON-SPECIFIC, UP TO 1 [id number] 16:04:00Reason for exam:- >femur fxFINAL REPORT A fluoroscopic unit was utilized for a procedure performed in the operating room. No interpretation was requested. Please refer to the operative report regarding findings. Please refer to PACS for patient radiation dose information. Signed: Jose Francisco Garcia Verified Date/Time: 12/23/2019 16:04:47 Reading Location: [address] Body Reading Room POCT-GLUCOSE [id number] 13:17:00 Test Item Value Reference Range Interpretation Comments POC-GLUCOSE METER 132 mg/dL 70-110 H : [facility] T [facility] (test code = [facility], 1538) [address]: Plug Machine Operator/Techni sagar ID = [id number] for JAC SAXENA POCT-GLUCOSE [id number] 05:50:00 Test Item Value Reference Range Interpretation Comments POC-GLUCOSE METER 130 mg/dL 70-110 H : [facility] A T [facility] (test code = [facility], 1538) [address]: Plug Machine Operator/Techni sagar ID = [id number] for Cynthia Varner CT, EXTREMITY, LOWER WITHOUT CONTRAST, [id number] 23:04:00FINAL REPORT CLINICAL HISTORY: Right femur fracture COMPARISON: None. FINDINGS: Multiple axial images of the right femur were performed without IV contrast. Coronal and sagittalreformats were created. This exam was performed according to our departmental dose-optimization program, which includes automated exposure control, adjustment of the mA and/or kV according to patient size and/or use of the iterative reconstruction technique. There is a comminuted fracture of the distal femur extending from the distal metadiaphysis into the intercondylar notch. There is impaction and posterior medial displacement of the main fracture fragment. There is a small associated knee joint effusion. The intrinsic soft tissues of the knee appear intact. There is swelling surrounding the lateral collateral ligament, which may relate to tissue trauma though ligamentous injury could be present. The hip joint is intact. There is scattered atherosclerotic calcification in the right lower extremity. There is no destructive bony lesion or radiopaque foreign body. IMPRESSION: Distal femur fracture with extension into the knee joint at the intercondylar notch. Posttraumatic soft tissue findings, as described. Signed: Gerard Rich MDReport Verified Date/Time: 12/22/2019 23:04:49 [facility] [id number] 21:31:00 Test Item Value Reference Range Interpretation Comments TOTAL PROTEIN 7.1 gm/dL 6.0-8.3 (BEAKER) (test code = 770) ALBUMIN (BEAKER) 4.3 g/dL 3.5-5.0 (test code = 1145) ALKALINE PHOSPHATASE 134 U/L 40-150 (BEAKER) (test code = 346) BILIRUBIN TOTAL 1.3 mg/dL 0.2-1.2 H (BEAKER) (test code = 377) SODIUM (BEAKER) (test 138 meq/L 136-145 code = 381) POTASSIUM (BEAKER) 4.3 meq/L 3.5-5.1 (test code = 379) CHLORIDE (BEAKER) 104 meq/L 98-107 (test code = 382) CO2 (BEAKER) (test 25 meq/L 22-29 code = 355) BLOOD UREA NITROGEN 19 mg/dL 7-21 (BEAKER) (test code = 354) CREATININE (BEAKER) 0.95 mg/dL 0.57-1.25 (test code = 358) GLUCOSE RANDOM 190 mg/dL 70-105 H (BEAKER) (test code = 652) CALCIUM (BEAKER) 9.0 mg/dL 8.4-10.2 (test code = 697) AST (SGOT) (BEAKER) 15 U/L 5-34 (test code = 353) ALT (SGPT) (BEAKER) 16 U/L 6-55 (test code = 347) EGFR (BEAKER) (test 56 mL/min/1.73 ESTIMA DEVANG GFR IS code = 1092) sq m NOT ACCURATE CREATININE CLEARANCE IN PREDICTING GLOMERULAR FILTRATION RATE . ESTIMATED GFR I S NOT APPLICABLE FOR DIALYSIS PATIEN TS. Plug Machine Operator ID - DBPOCT-GLUCOSE [id number] 21:25:00 Test Item Value Reference Range Interpretation Comments POC-GLUCOSE METER 162 mg/dL 70-110 H : TESTED A T [facility] 6720 (BEAKER) (test code = [facility] [place], 1538) [address]: Plug Machine Operator/Techni sagar ID = [id number] for GR PATRICK FARMER PROTHROMBIN [id number] 21:20:00 Test Item Value Reference Range Interpretation Comments PROTIME (BEAKER) (test code = 12.6 seconds 11.9-14.2 759) INR (BEAKER) (test code = 370) 1.0 <=5.9 Effective 02/28/2019: PT Reference Range ChangeNew: 11.9-14.2 Previous: 11.7- 14.7RECOMMENDED COUMADIN/WARFARIN INR THERAPY RANGESSTANDARD DOSE: 2.0-3.0 Includes: PROPHYLAXIS for venous thrombosis, systemic embolization; TREATMENT for venous thrombosis and/or pulmonary embolus.HIGH RISK: Target INR is2.5-3.5 for patients wiht mechanical heart valves.CBC W/PLT COUNT & AUTO [id number] 21:17:00 Test Item Value Reference Range Interpretation Comments WHITE BLOOD CELL COUNT (BEAKER) 9.7 K/ L 3.5-10.5 (test code = 775) RED BLOOD CELL COUNT (BEAKER) 4.54 M/ L 3.93-5.22 (test code = 761) HEMOGLOBIN (BEAKER) (test code = 12.9 GM/DL 11.2-15.7 410) HEMATOCRIT (BEAKER) (test code = 41.0 % 34.1-44.9 411) MEAN CORPUSCULAR VOLUME (BEAKER) 90.3 fL 79.4-94.8 (test code = 753) MEAN CORPUSCULAR HEMOGLOBIN 28.4 pg 25.6-32.2 (BEAKER) (test code = 751) MEAN CORPUSCULAR HEMOGLOBIN CONC 31.5 GM/DL 32.2-35.5 L (BEAKER) (test code = 752) RED CELL DISTRIBUTION WIDTH 14.6 % 11.7-14.4 H (BEAKER) (test code = 412) PLATELET COUNT (BEAKER) (test 235 K/CU MM 150-450 code = 756) MEAN PLATELET VOLUME (BEAKER) 9.5 fL 9.4-12.3 (test code = 754) NUCLEATED RED BLOOD CELLS 0 /100 WBC 0-0 (BEAKER) (test code = 413) NEUTROPHILS RELATIVE PERCENT 85 % (BEAKER) (test code = 429) LYMPHOCYTES RELATIVE PERCENT 8 % (BEAKER) (test code = 430) MONOCYTES RELATIVE PERCENT 6 % (BEAKER) (test code = 431) EOSINOPHILS RELATIVE PERCENT 0 % (BEAKER) (test code = 432) BASOPHILS RELATIVE PERCENT 0 % (BEAKER) (test code = 437) NEUTROPHILS ABSOLUTE COUNT 8.27 K/ L 1.56-6.13 H (BEAKER) (test code = 670) LYMPHOCYTES ABSOLUTE COUNT 0.75 K/ L 1.18-3.74 L (BEAKER) (test code = 414) MONOCYTES ABSOLUTE COUNT (BEAKER) 0.59 K/ L 0.24-0.36 H (test code = 415) EOSINOPHILS ABSOLUTE COUNT 0.01 K/ L 0.04-0.36 L (BEAKER) (test code = 416) BASOPHILS ABSOLUTE COUNT (BEAKER) 0.03 K/ L 0.01-0.08 (test code = 417) IMMATURE GRANULOCYTES-RELATIVE 1 % 0-1 PERCENT (BEAKER) (test code = 2801) RAD, FEMUR, MIN. 2 VIEWS, [id number] 20:35:00Reason for exam:->right femur fractureShould this be performed at the bedside?->YesFINAL REPORT CLINICAL HISTORY: Trauma and pain COMPARISON: None. FINDINGS: Asingle view of the supine pelvis and 5 images of the right femur are submitted. There is a comminuted fracture of the distal femoral shaft with extension into the distal metaphysis. There is impaction/overlap of the fracture fragments of approximately 5 cm and posterior displacement of the main fracture fragment of one half shaft width. No acute fracture is identified in the pelvis. The hip joints are intact. There are moderate to severe degenerative changes in the left hip. Degenerative changes arealso noted in the visualized lumbar spine. IMPRESSION: Comminuted fracture of the distal right femur. Signed: Gerard Rich MDReport Verified Date/Time: 12/22/2019 20:35:26 Electronically signedby: GERARD RICH M.D. on 12/22/2019 08:35 PMRAD, PELVIS, 1 OR 2 [id number] 20:35:00Reason for exam:->fall with right femur fractureShould this be performed at the bedside?->YesFINAL REPORT CLINICAL HISTORY: Trauma and pain COMPARISON: None. FINDINGS: Asingle view of the supine pelvis and 5 images of the right femur are submitted. There is a comminuted fracture of the distal femoral shaft with extension into the distal metaphysis. There is impaction/overlap of the fracture fragments of approximately 5 cm and posterior displacement of the main fracture fragment of one half shaft width. No acute fracture is identified in the pelvis. The hip joints are intact. There are moderate to severe degenerative changes in the left hip. Degenerative changes arealso noted in the visualized lumbar spine. IMPRESSION: Comminuted fracture of the distal right femur. Signed: Gerard Rich MDRevangelinaort Verified Date/Time: 12/22/2019 20:35:26 Electronically signedby: GERARD RICH M.D. on 12/22/2019 08:35 PMPOCT-GLUCOSE [id number] 18:26:00 Test Item Value Reference Range Interpretation Comments POC-GLUCOSE METER 175 mg/dL 70-110 H : TESTED A T [facility] 6720 ([place]) (test code = [facility] [place], 1538) [address]: Plug Machine Operator/Techni sagar ID = [id number] for Alisson MILLIGAN
--- OUTSIDE RECORDS SUMMARY | 2020-02-29 01:09 | XMS REPORT | Clinical Summary ---
:1935 Author Organization [facility] Address [address] [place] [address] Care Team Providers Name Role Phone Unavailable Primary Care Provider Unavailable Allergies Active Allergy Reactions Severity Noted Date Comments Amoxicillin Hives 12/22/2019 Medications Medication Sig Dispensed Refills Start Date End Date Status clopidogreL (PLAVIX) Take 75 mg by 1 10/03/2019 Active 75 mg tablet mouth daily. DULoxetine Take 30 mg by 0 12/03/2019 Acti ve (CYMBALTA) 30 MG mouth daily capsule TAKE WITH FOOD. JARDIANCE 25 mg Take 25 mg by 1 10/03/2019 Active tablet mouth every morning. omeprazole Take 40 mg by 1 10/03/2019 Acti ve (PRILOSEC) 40 MG mouth daily. capsule simvastatin (ZOCOR) Take 20 mg by 0 Active 20 MG tablet mouth nightly. umeclidinium-vilante Inhale 1 puff 0 Active roL (ANORO ELLIPTA) by mouth via 62.5-25 inhaler every mcg/actuation DsDv morning. acetaminophen-codein Take 1 tablet 0 Active e (TYLENOL #3) by mouth 300-30 mg per tablet every 4 (four) hours as needed for Pain. triamterene-hydroCHL Take 0.5 0 Active OROthiazide tablets by (MAXZIDE-25) 37.5-25 mouth daily. mg per tablet celecoxib (CELEBREX) Take 100 mg 0 020 Discontinued 100 MG capsule by mouth every 12 (twelve) hours as needed for Pain. calcium Take 1 tablet 30 tablet 0 12/27/2019 01/26/2020 Expi red carbonate-vitamin D3 by mouth (OSCAL-D) 500 daily for 30 mg(1,250mg) -200 days. unit per tablet ergocalciferol Take 1 8 capsule 0 01/02/2020 02/27/2020 Exp ired (ERGOCALCIFEROL) capsule 1,250 mcg (50,000 (50,000 Units unit) capsule total) by mouth once a week for 56 days. Active Problems Problem Noted Date Vitamin D deficiency 12/26/2019 History of stroke 12/26/2019 Resolved Problems Problem Noted Date Resolved Date Other emphysema 12/26/2019 12/26/2019 Type 2 diabetes mellitus without complication, without 12/2512/26/2019 long-term current use of insulin Closed fracture of right femur 12/22/2019 0 Displaced supracondylar fracture without intracondylar 12/2112/26/2019 extension of lower end of right femur, initial encounter for closed fracture Encounters Date Type Specialty Care Team Description 12/23/2019 Anesthesia Event Kenny Jorge MD 12/23/2019 Surgery Nadeem De Oliveira ORIF,FEMUR MD Juan 12/22/2019 - Hospital Encounter General Internal [place], Close d fracture of distal end of right femur, unspecified fracture morphology, initial encounter (HCC) (Primary Dx); 12/27/2019 Medicine Yolanda Type 2 diabetes mellitus without complication, without long-term current use of insulin (HCC); MD Rio Essential hypertension; Toan Johnson Drug-induced constipation; MD Sandy Impaired mobility and ADLs Jack Mantilla MD 12/22/2019 Travel after 02/28/2019 Social History Tobacco Use Types Packs/Day Years Used Date Former Smoker Smokeless Tobacco: Never Used Alcohol Use Drinks/Week oz/Week Comments No Alcohol Habits Answer Date Recorded How often do you have a drink containing alcohol? Never 12/22/2019 How many drinks containing alcohol do you have on a typical Not asked day when you are drinking? How often do you have six or more drinks on one occasion? No t asked Sex Assigned at Date Recorded Not on file Job Start Date Occupation Industry Not on file Not on file Not on file Travel History Travel Start Travel End No recent travel history available. Last Filed Vital Signs Vital Sign Reading Time Taken Blood Pressure 143/80 12/27/2019 2:59 PM CDT Pulse 84 12/27/2019 2:59 PM CDT Temperature 35.6 C (96.1 F) 12/27/2019 2:59 PM CDT Respiratory Rate 17 12/27/2019 11:43 AM CDT Oxygen Saturation 98% 12/27/2019 2:59 PM CDT Inhaled Oxygen Concentration 21% 12/25/2019 8:38 AM CDT Weight 79.8 kg (176 lb) 12/25/2019 4:00 PM CDT Height 160 cm (5' 3") 12/25/2019 4:00 PM CDT Body Mass Index 31.18 12/25/2019 4:00 PM CDT Plan of Treatment Not on file Implants Implanted Type Area Pattern Scratcher Device Shelf Model / Identifier Expiration Date Ser ial / Lot 4.5 X 74 Locking Screw Right: [employer] [id number] / Implanted: Qty: 1 on 12/23/2019 by Nadeem De Oliveira MD L eg / 4.5 X 80 Locking Screw Right: [employer] [id number] / Implanted: Qty: 1 on 12/23/2019 by Nadeem De Oliveira MD L eg / 8 Hole Right Dital Femur Plate Right: [employer] [id number] / Implanted: Qty: 1 on 12/23/2019 by Nadeem De Oliveira MD L eg / 4.5 X 28 Screw Right: [employer] [id number] / Implanted: Qty: 1 on 12/23/2019 by Nadeem De Oliveira MD L eg / 4.5 X 32 Screw Right: [employer] [id number] / Implanted: Qty: 1 on 12/23/2019 by Nadeem De Oliveira MD L eg / 4.5 X 34 Screw Right: [employer] [id number] / Implanted: Qty: 1 on 12/23/2019 by Nadeem De Oliveira MD L eg / 4.5 X 60 Screw Right: [employer] [id number] / Implanted: Qty: 1 on 12/23/2019 by Nadeem De Oliveira MD L eg / 4.5 X 76 Screw Right: [employer] [id number] / Implanted: Qty: 1 on 12/23/2019 by Nadeem De Oliveira MD L eg / 4.5 X 80 Screw Right: [employer] [id number] / Implanted: Qty: 1 on 12/23/2019 by Atassi, Nadeem Juan, MD L eg / 4.5 X 70 Locking Screw Right: [employer] [id number] / Implanted: Qty: 1 on 12/23/2019 by Nadeem De Oliveira MD L eg / Explanted Type Area Pattern Scratcher Device Shelf Model / Identifier Expiration Serial / Date Lot Wire Waqar Trcr Pt [id number] - [id number] IMPLANTS Right: [facility] & 33 325 / Explanted: Qty: 3 on 12/23/2019 Leg NEPHEW:ORTHO / Procedures Procedure Name Priority Date/Time Associated Diagnosis Comme nts REPORT OF PROCEDURE - 12/28/2019 8:30 ENDOSCOPY SCAN AM CDT POCT-GLUCOSE METER Routine 12/27/2019 11:47 Resul ts for this AM CDT procedure are i n the results section. CBC W/PLT COUNT & Routine 12/27/2019 4:22 Result s for this AUTO DIFFERENTIAL AM CDT procedure are in the results section. CBC W/PLT COUNT & Routine 12/27/2019 4:22 Result s for this AUTO DIFFERENTIAL AM CDT procedure are in the results section. POCT-GLUCOSE METER Routine 12/26/2019 10:17 Resul ts for this PM CDT procedure are i n the results section. POCT-GLUCOSE METER Routine 12/26/2019 5:40 Resul ts for this PM CDT procedure are i n the results section. POCT-GLUCOSE METER Routine 12/26/2019 8:13 Resul ts for this AM CDT procedure are i n the results section. VITAMIN D, 25-HYDROXY Routine 12/26/2019 4:05 Re sults for this AM CDT procedure are i n the results section. POCT-GLUCOSE METER Routine 12/25/2019 5:51 Resul ts for this PM CDT procedure are i n the results section. HEMOGLOBIN AND STAT 12/25/2019 4:34 Results f or this HEMATOCRIT PM CDT procedure are i n the results section. POCT-GLUCOSE METER Routine 12/25/2019 9:42 Resul ts for this AM CDT procedure are i n the results section. CBC (HEMOGRAM ONLY) Routine 12/25/2019 4:35 Resu lts for this AM CDT procedure are i n the results section. BASIC METABOLIC PANEL Routine 12/25/2019 4:35 Re sults for this (7) AM CDT procedure are i n the results section. TRANSFUSION SERVICE 12/24/2019 5:50 REPORT - SCAN PM CDT POCT-GLUCOSE METER Routine 12/24/2019 5:28 Resul ts for this PM CDT procedure are i n the results section. POCT-GLUCOSE METER Routine 12/24/2019 12:41 Resul ts for this PM CDT procedure are i n the results section. POCT-GLUCOSE METER Routine 12/24/2019 7:49 Resul ts for this AM CDT procedure are i n the results section. BASIC METABOLIC PANEL Routine 12/24/2019 3:57 Re sults for this (7) AM CDT procedure are i n the results section. CBC (HEMOGRAM ONLY) Routine 12/24/2019 3:57 Resu lts for this AM CDT procedure are i n the results section. POCT-GLUCOSE METER Routine 12/23/2019 9:26 Resul ts for this PM CDT procedure are i n the results section. TRANSFUSION SERVICE 12/23/2019 5:50 REPORT - SCAN PM CDT POCT-GLUCOSE METER Routine 12/23/2019 5:49 Resul ts for this PM CDT procedure are i n the results section. PREPARE LEUKO-REDUCED Routine 12/23/2019 4:14 Re sults for this RBC PM CDT procedure are i n the results section. POCT-GLUCOSE METER Routine 12/23/2019 3:56 Resul ts for this PM CDT procedure are i n the results section. FL FLUORO STAT 12/23/2019 3:08 Results for this NON-SPECIFIC UP TO 1 PM CDT procedu re are in HOUR the results section. POCT-GLUCOSE METER Routine 12/23/2019 1:05 Resul ts for this PM CDT procedure are i n the results section. ORIF,FEMUR 12/23/2019 12:00 Closed supracondylar PM CDT fracture of right femur, initial encounter (HCC) Special Needs REQ: 8AMTRIANGLES, TRUMP TAB LE, BESSIE ANTICULAR CLAMPS, [employer] ABORH, MANUAL STAT 12/23/2019 11:32 AM CDT Res ults for this procedure are i n the results section . POCT-GLUCOSE METER Routine 12/23/2019 5:38 AM CDT Results for this procedure are i n the results section . CT LOWER EXTREMITY WITHOUT STAT 12/22/2019 10:08 PM CDT Results for this IV CONTRAST RIGHT procedure are in the results section . POCT-GLUCOSE METER Routine 12/22/2019 9:11 PM CDT Results for this procedure are i n the results section . ECG 12-LEAD Routine 12/22/2019 9:02 PM CDT Resu lts for this procedure are i n the results section . CBC W/PLT COUNT & AUTO Routine 12/22/2019 8:54 PM CDT Results for this DIFFERENTIAL procedure are i n the results section . TYPE AND SCREEN, AUTOMATED Routine 12/22/2019 8:54 PM CDT Results for this procedure are i n the results section . PROTHROMBIN TIME/INR Routine 12/22/2019 8:54 PM CDT Results for this procedure are i n the results section . COMPREHENSIVE METABOLIC Routine 12/22/2019 8:54 PM CDT Results for this PANEL procedure are i n the results section . CBC W/PLT COUNT & AUTO Routine 12/22/2019 8:54 PM CDT Results for this DIFFERENTIAL procedure are i n the results section . XR FEMUR 2 VIEWS RIGHT STAT 12/22/2019 8:00 PM CDT Results for this procedure are i n the results section . XR PELVIS 1 OR 2 VIEWS STAT 12/22/2019 7:49 PM CDT Results for this procedure are i n the results section . POCT-GLUCOSE METER Routine 12/22/2019 6:14 PM CDT Results for this procedure are i n the results section . after 02/28/2019 Results EKG-SCANNED (12/28/2019 8:30 AM CDT) Narrative Performed At This result has an attachment that is no t available. POC-Glucose meter (12/27/2019 11:47 AM CDT)Only the most recent of16 results within the time period is included. POC-Glucose Meter 146 (H)Comment: : TESTED 70 - 110 mg/dL [facility] [address] [facility] [place] [address]: Activities Coordinator/Slotter Operator Helper ID = [id number] for LEX MCKEON Specimen Blood Performing Organization Address City/State/Zipcode Phone Number [facility] [address] [place] [address] CENTER CBC with platelet count + automated diff (12/27/2019 4:22 AM CDT)Only the most recent of2 resultswithin the time period is included. WBC 8.3 3.5 - 10.5 K/L [facility] RBC 3.77 (L) 3.93 - 5.22 M/L [facility] Hemoglobin 10.4 (L) 11.2 - 15.7 GM/DL [facility] Hematocrit 33.3 (L) 34.1 - 44.9 % [facility] MCV 88.3 79.4 - 94.[address] [facility] MCH 27.6 25.6 - 32.[address] [facility] MCHC 31.2 (L) 32.2 - 35.5 GM/DL [facility] RDW 15.2 (H) 11.7 - 14.4 % [facility] Platelets 301Comment: Discordant 150 - 450 K/CU MM [facility] result .clinical [facility] correlation required. MPV 9.3 (L) 9.4 - 12.[address] [facility] nRBC 0 0 - 0 /[address] [facility] % Neutros 75 % [facility] % Lymphs 13 % [facility] % Monos 9 % [facility] % Eos 2 % [facility] % Baso 0 % [facility] # Neutros 6.21 (H) 1.56 - 6.13 K/L [facility] # Lymphs 1.08 (L) 1.18 - 3.74 K/L [facility] # Monos 0.74 (H) 0.24 - 0.36 K/L [facility] # Eos 0.16 0.04 - 0.36 K/L [facility] # Baso 0.02 0.01 - 0.08 K/L [facility] ER Immature 1 0 - 1 % [facility] Granulocytes-Relative [facility] Specimen Blood Performing Organization Address City/[facility]/Zipcode Phone Number [address] [address] [place] Vitamin D, 25-Hydroxy (12/26/2019 4:05 AM CDT) Vitamin D 25-Hydroxy 7.0 6.6 - 49.9 ng/mL [facility] Specimen Blood Narrative Performed At Effective 07/13/2017: Reference Range Ch cliff [facility] New: 6.6-49.9 ng/mL Previous: 13.0-47.8 ng/mL Recommended Vitamin D Target Range: 30.0-40.0 ng/mL Activities Coordinator ID - AJ Álvarez Performing Organization Address [facility] Phone Number [address] [address] CENTER Hemoglobin and hematocrit (12/25/2019 4:34 PM CDT) Hemoglobin 9.9 (L) 11.2 - 15.7 GM/DL [facility] Hematocrit 31.2 (L) 34.1 - 44.9 % [facility] Specimen Blood Narrative Performed At Activities Coordinator ID - [id number] [facility] Performing Organization Address [facility] Centercode Phone Number [address] [address] CENTER CBC (Hemogram only) (12/25/2019 4:35 AM CDT)Only the most recent of2 results within the time period is included. WBC 9.2 3.5 - 10.5 K/L [facility] RBC 3.37 (L) 3.93 - 5.22 M/L [facility] Hemoglobin 9.7 (L) 11.2 - 15.7 GM/DL [facility] Hematocrit 30.3 (L) 34.1 - 44.9 % [facility] MCV 89.9 79.4 - 94.8 fL [facility] MCH 28.8 25.6 - 32.2 pg [facility] MCHC 32.0 (L) 32.2 - 35.5 GM/DL [facility] RDW 15.3 (H) 11.7 - 14.4 % [facility] Platelets 185 150 - 450 K/CU MM [facility] MPV 9.7 9.4 - 12.3 fL [facility] nRBC 0 0 - 0 /100 WBC [facility] Specimen Blood Performing Organization Address City/State/Zipcode Phone Number [facility] [address] [place] [address] CENTER Basic Metabolic Panel (12/25/2019 4:35 AM CDT)Only the most recent of2 results within the time period is included. Sodium 137 136 - 145 meq/L [facility] Potassium 3.8 3.5 - 5.1 meq/L [facility] Chloride 105 98 - 107 meq/L [facility] CO2 23 22 - 29 meq/L [facility] BUN 15 7 - 21 mg/dL [facility] Creatinine 0.84 0.57 - 1.25 mg/dL [facility] Glucose 141 (H) 70 - 105 mg/dL [facility] Calcium 8.7 8.4 - 10.2 mg/dL [facility] EGFR 65Comment: ESTIMATED GFR IS mL/min/1.73 sq m [facility] NOT ACCURATE CREATININE [facility] CENTER CLEARANCE IN PREDICTING GLOMERULAR FILTRATION RATE. ESTIMATED GFR IS NOT APPLICABLE FOR DIALYSIS PATIENTS. Specimen Blood Narrative Performed At Activities Coordinator ID - AJ Álvarez [facility] Performing Organization Address City/State/[facility] Centercode Phone Number [facility] [address] [place] [address] CENTER TRANSFUSION SERVICE REPORT - SCAN (12/24/2019 5:50 PM CDT)Only the most recent of2 resultswithin the time period is included. Narrative Performed At This result has an attachment that is no t available. Prepare Leuko-Red RBC (12/23/2019 4:14 PM CDT) CROSSMATCH COMPATIBLE SAFETRACE TX Unit ABO O Pos SAFETRACE TX UNIT NUMBER [id number] SAFETRACE TX Status RETURNED FROM ISSUE SAFETRACE TX Blood Bank Product RED BLOOD CELLS SAFETRACE TX PRODUCT CODE [id number] SAFETRACE TX CROSSMATCH COMPATIBLE SAFETRACE TX Unit ABO O Pos SAFETRACE TX UNIT NUMBER [id number] SAFETRACE TX Status RETURNED FROM ISSUE SAFETRACE TX Blood Bank Product RED BLOOD CELLS SAFETRACE [place] PRODUCT CODE [id number] SAFETRACE [place] Specimen Other Performing Organization Address City/State/[facility]x Phone Number SAFETRACE [place] FL fluoro non-specific up to 1 hour (12/23/2019 3:08 PM CDT) Specimen Narrative Performed At FINAL REPORT GE RIS A fluoroscopic unit was utilized for a p rocedure performed in the operating room. No interpretation was re quested. Please refer to the operative report regarding findings. Ple ase refer to PACS for patient radiation dose information. Signed: Jose Francisco Garcia MD Report Verified Date/Time:12/23/2019 16:04:47 Reading Location: [facility] C013Y CT Body R eading Room Procedure Note Interface, External Ris In - 12/23/2019 4:07 PM CDT FINAL REPORT A fluoroscopic unit was utilized for a p rocedure performed in the operating room. No interpretation was re quested. Please refer to the operative report regarding findings. Ple ase refer to PACS for patient radiation dose information. Signed: Jose Francisco Garcia MD Report Verified Date/Time: 12/23/2019 1 6:04:47 Reading Location: [facility] B1 C013Y CT Body R eading Room Performing Organization Address City/[facility]/Zipcode Phone Number [employer] ABORH, manual (12/23/2019 11:32 AM CDT) Factor POS [facility] ABO Grouping O [facility] Specimen Blood Performing Organization Address [facility] Centercode Phone Number [facility] [address] [place], [place] [id number] CT lower extremity without IV contrast right (12/22/2019 10:08 PM CDT) Specimen Narrative Performed At FINAL REPORT [employer] CLINICAL HISTORY: Right femur fracture COMPARISON: None. FINDINGS: Multiple axial images of the right femur were performed without IV contrast. Coronal and sagittal reformats were created. This exam was performed according to our departmental dose-optimization program, which includes automated exposure contro l, adjustment of the mA and/or kV according to patient size and/ or use of the iterative reconstruction technique. There is a comminuted fracture of the di stal femur extending from the distal metadiaphysis into the intercondy lar notch. There is impaction and posterior medial displacement of the main fracture fragment. There is a small associated knee joint e ffusion. The intrinsic soft tissues of the knee a ppear intact. There is swelling surrounding the lateral collate ral ligament, which may relate to tissue trauma though ligamento us injury could be present. The hip joint is intact. There is scatte red atherosclerotic calcification in the right lower extremi ty. There is no destructive bony lesion or r adiopaque foreign body. IMPRESSION: Distal femur fracture with extension int o the knee joint at the intercondylar notch. Posttraumatic soft tissue findings, as d escribed. Signed: Gerard Pino MD Report Verified Date/Time:12/22/2019 23:04:49 Procedure Note Interface, External Ris In - 12/22/2019 11:08 PM CDT FINAL REPORT CLINICAL HISTORY: Right femur fracture COMPARISON: None. FINDINGS: Multiple axial images of the right femur were performed without IV contrast. Coronal and sagittal reformats were created. This exam was performed according to our departmental dose-optimization program, which includes automated exposure contro l, adjustment of the mA and/or kV according to patient size and/ or use of the iterative reconstruction technique. There is a comminuted fracture of the di stal femur extending from the distal metadiaphysis into the intercondy lar notch. There is impaction and posterior medial displacement of the main fracture fragment. There is a small associated knee joint e ffusion. The intrinsic soft tissues of the knee a ppear intact. There is swelling surrounding the lateral collate ral ligament, which may relate to tissue trauma though ligamento us injury could be present. The hip joint is intact. There is scatte red atherosclerotic calcification in the right lower extremi ty. There is no destructive bony lesion or r adiopaque foreign body. IMPRESSION: Distal femur fracture with extension int o the knee joint at the intercondylar notch. Posttraumatic soft tissue findings, as d escribed. Signed: Gerard Pino MD Report Verified Date/Time: 12/22/2019 2 3:04:49 Performing Organization Address City/State/Zipcode Phone Number GE RIS ECG 12 lead (12/22/2019 9:02 PM CDT) Specimen Narrative Performed At Ventricular Rate 95 BPM GE MUSE Atrial Rate 95 BPM P-R Interval 160 ms QRS Duration 90 ms Q-T Interval 366 ms QTC Calculation(Bazett) 459 ms P Cameron 49 degrees R Cameron 27 degrees T Cameron 131 degrees Sinus rhythm with Premature atrial compl exes Septal infarct , age undetermined Nonspecific T wave abnormality Abnormal ECG No previous ECGs available Confirmed by MD Kami, Edwin ([id number]) on 12/22 8:44:02 AM Procedure Note Interface, External Ris In - 12/23/2019 8:44 AM CDT Ventricular Rate 95 BPM Atrial Rate 95 BPM P-R Interval 160 ms QRS Duration 90 ms Q-T Interval 366 ms QTC Calculation(Bazett) 459 ms P Cameron 49 degrees R Cameron 27 degrees T Cameron 131 degrees Sinus rhythm with Premature atrial compl exes Septal infarct , age undetermined Nonspecific T wave abnormality Abnormal ECG No previous ECGs available Confirmed by MD Mcclure Roberto ([id number]) on 12/23/2019 8:44:02 AM Performing Organization Address [facility] Phone Number GE MUSE Type and screen, automated (12/22/2019 8:54 PM CDT) ABO/RH AUTOMATED (BEAKER) O POSITIVE [facility] Ab Scrn NEGATIVE [facility] Specimen Blood Performing Organization Address [facility] Phone Number [address] [address] Prothrombin time/INR (12/22/2019 8:54 PM CDT) Protime 12.6 11.9 - 14.2 seconds [facility] INR 1.0 <=5.9 [facility] Specimen Blood Narrative Performed At Effective 02/28/2019: PT Reference Range [facility] Change New: 11.9-14.2Previous: 11.7-14.7 RECOMMENDED COUMADIN/WARFARIN INR THERAPY RANGES STANDARD DOSE: 2.0-3.0Includes: PROPHYLAXIS for venous thrombosis, systemic embolization; TREATMENT for venous thrombosis and/or pulmonary embolus. HIGH RISK: Target INR is 2.5-3.5 for patients wiht mechanical heart valves. Performing Organization Address [facility] Phone Number [address] [address] [place] Comprehensive metabolic panel (12/22/2019 8:54 PM CDT) Protein, Total 7.1 6.0 - 8.3 gm/dL [facility] Albumin 4.3 3.5 - 5.0 g/dL [facility] Alkaline Phosphatase 134 40 - 150 U/L [facility] Total Bilirubin 1.3 (H) 0.2 - 1.2 mg/dL [facility] Sodium 138 136 - 145 meq/L [facility] Potassium 4.3 3.5 - 5.1 meq/L [facility] Chloride 104 98 - 107 meq/L [facility] CO2 25 22 - [address] [facility] BUN 19 7 - 21 mg/dL [facility] Creatinine 0.95 0.57 - 1.25 mg/dL [facility] Glucose 190 (H) 70 - 105 mg/dL [facility] Calcium 9.0 8.4 - 10.2 mg/dL [facility] AST 15 5 - 34 U/L [facility] ALT 16 6 - 55 U/L [facility] EGFR 56Comment: ESTIMATED GFR mL/min/1.73 sq m [facility] IS NOT ACCURATE [facility] IN PREDICTING GLOMERULAR FILTRATION RATE. ESTIMATED GFR IS NOT APPLICABLE FOR DIALYSIS PATIENTS. Specimen Blood Narrative Performed At Activities Coordinator ID - DB [facility] Performing Organization Address City/State/Zipcode Phone Number [facility] [address] [place] [address] CENTER XR femur 2 views right (12/22/2019 8:00 PM CDT) Specimen Narrative Performed At FINAL REPORT [facility] CLINICAL HISTORY: Trauma and pain COMPARISON: None. FINDINGS: A single view of the supine pelvis and 5 images of the right femur are submitted. There is a comminuted fracture of the di stal femoral shaft with extension into the distal metaphysis. Th ere is impaction/overlap of the fracture fragments of approximately 5 cm and posterior displacement of the main fracture fragme nt of one half shaft width. No acute fracture is identified in the p marcos. The hip joints are intact. There are moderate to severe deg enerative changes in the left hip. Degenerative changes are also noted in the visualized lumbar spine. IMPRESSION: Comminuted fracture of the distal right femur. Signed: Gerard Pino MD Report Verified Date/Time:12/22/2019 20:35:26 Procedure Note Interface, External Ris In - 12/22/2019 8:38 PM CDT FINAL REPORT CLINICAL HISTORY: Trauma and pain COMPARISON: None. FINDINGS: A single view of the supine pelvis and 5 images of the right femur are submitted. There is a comminuted fracture of the di stal femoral shaft with extension into the distal metaphysis. Th ere is impaction/overlap of the fracture fragments of approximately 5 cm and posterior displacement of the main fracture fragme nt of one half shaft width. No acute fracture is identified in the p marcos. The hip joints are intact. There are moderate to severe deg enerative changes in the left hip. Degenerative changes are also noted in the visualized lumbar spine. IMPRESSION: Comminuted fracture of the distal right femur. Signed: Gerard Pino MD Report Verified Date/Time: 12/22/2019 2 0:35:26 Performing Organization Address City/State/Zipcode Phone Number [facility] XR pelvis 1 or 2 views (12/22/2019 7:49 PM CDT) Specimen Narrative Performed At FINAL REPORT [facility] CLINICAL HISTORY: Trauma and pain COMPARISON: None. FINDINGS: A single view of the supine pelvis and 5 images of the right femur are submitted. There is a comminuted fracture of the di stal femoral shaft with extension into the distal metaphysis. Th ere is impaction/overlap of the fracture fragments of approximately 5 cm and posterior displacement of the main fracture fragme nt of one half shaft width. No acute fracture is identified in the p marcos. The hip joints are intact. There are moderate to severe deg enerative changes in the left hip. Degenerative changes are also noted in the visualized lumbar spine. IMPRESSION: Comminuted fracture of the distal right femur. Signed: Gerard Pino MD Report Verified Date/Time:12/22/2019 20:35:26 Procedure Note Interface, External Ris In - 12/22/2019 8:38 PM CDT FINAL REPORT CLINICAL HISTORY: Trauma and pain COMPARISON: None. FINDINGS: A single view of the supine pelvis and 5 images of the right femur are submitted. There is a comminuted fracture of the di stal femoral shaft with extension into the distal metaphysis. Th ere is impaction/overlap of the fracture fragments of approximately 5 cm and posterior displacement of the main fracture fragme nt of one half shaft width. No acute fracture is identified in the p marcos. The hip joints are intact. There are moderate to severe deg enerative changes in the left hip. Degenerative changes are also noted in the visualized lumbar spine. IMPRESSION: Comminuted fracture of the distal right femur. Signed: Gerard Pino MD Report Verified Date/Time: 12/22/2019 2 0:35:26 Performing Organization Address City/State/Zipcode Phone Number GE RIS after 02/28/2019 Insurance Payer Benefit Plan / Group Subscriber ID Type Phone A ddress [facility] - MEDICARE UNITED MEDICARE HMO xxxxxxxxx MGD CARE Advance Directives For more information, please contact:[address] [phone] Code Status Date Activated Date Inactivated Comments Full Code 12/22/2019 6:36 PM 12/27/2019 6:46 PM This code status was determined by: Patient
[2020-02-29] MEDS ORDERED: LIDOCAINE 1% MPF 5 ML VIAL ONE (02:54)
[2020-02-29] MEDS ORDERED: LIDOCAINE 2% MPF 5 ML VIAL ONE (03:07)
[2020-02-29] MEDS ORDERED: MORPHINE 4 MG/ML SYR ONE (04:28)
[2020-02-29 06:32] VITALS: TEMP 98.2
[2020-02-29 06:38] VITALS: BP 131/75; O2SAT 99
--- NOTE | 2020-02-29 07:38 | RAD REPORT ---
EXAM DESCRIPTION: RAD - Wrist Right 3 View - 02/29/2020 5:47 am CLINICAL HISTORY: post reduction COMPARISON: Wrist Right 3 View dated 02/29/2020; Wrist Right 3 View dated 02/29/2020 FINDINGS: Fracture changes again noted. No change in alignment or position from earlier imaging. Cast material is in place. No new bone finding.
--- NOTE | 2020-02-29 14:41 | RAD REPORT ---
EXAM DESCRIPTION: RAD - Wrist Right 3 View - 02/29/2020 4:21 am CLINICAL HISTORY: Fall Wrist Right 3 View COMPARISON: None. TECHNIQUE: XR WRIST 3 OR MORE VIEWS 02/29/2020 1:20 AM CDT FINDINGS: There is a mildly displaced fracture of the ulnar styloid process. There is an impacted, angulated an d displaced fracture of the distal radius. There is likely intra-articular extension. There is tissue swelling. IMPRESSION: Distal forearm fractures. Electronically signed by: Uday Galicia MD 02/29/2020 3:41 AM CDT Due to temporary technical issues with the PACS/Fluency reporting system, reports are being signed by the in house radiologist without review asa courtesy to ensure prompt reporting. The interpreting ra diologist is fully responsible for the content of the report.
--- NOTE | 2020-02-29 16:18 | RAD REPORT ---
EXAM DESCRIPTION: RAD - Wrist Right 3 View - 02/29/2020 4:17 am CLINICAL HISTORY: Fall Wrist Right 3 View COMPARISON: None. TECHNIQUE: XR WRIST 3 OR MORE VIEWS 02/29/2020 1:20 AM CDT FINDINGS: There is a mildly displaced fracture of the ulnar styloid process. There is an impacted, a ngulated and displaced fracture of the distal radius. There is likely intra-articular extension. Ther e is tissue swelling. IMPRESSION: Distal forearm fractures. Electronically signed by: Uday Galicia MD 02/29/2020 3:41 AM CDT Due to temporary technical issues with the PACS/Fluency reporting system, reports are being signed by the in house radiologist without review asa courtesy to ensure prompt reporting. The interpreting ra diologist is fully responsible for the content of the report.
--- NOTE | 2020-03-02 12:23 | RAD REPORT ---
EXAM DESCRIPTION: RAD - Hand Right 3 View - 02/29/2020 4:19 am CLINICAL HISTORY: Fall COMPARISON: None. TECHNIQUE: XR HAND 3 OR MORE VIEWS 02/29/2020 1:20 AM CDT FINDINGS: There is an impacted, angulated and displaced fracture of the distal radius. There is a mi ldly displaced fracture of the ulnar styloid process. There are degenerative changes at the base of t he first digit. There is soft tissue swelling overlying the forearm. IMPRESSION: Distal forearm fractures. Electronically signed by: Uday Galicia MD 02/29/2020 3:42 AM CDT Due to temporary technical issues with the PACS/Fluency reporting system, reports are being signed by the in house radiologist without review asa courtesy to ensure prompt reporting. The interpreting ra diologist is fully responsible for the content of the report.
--- NOTE | 2020-03-03 16:44 | ER ---
Nurse's Notes [facility] Name: Yang Hernandez Age: 84 yrs Sex: Female : 1935 Arrival Date: 02/29/2020 Time: 01:08 Bed 8 Private MD: Diagnosis: Unspecified fracture of right forearm Presentation: 02/28 01:08 Chief complaint: EMS states: patient complaining of right wrist pain due to fall. rr5 negative for LOC, positive pulse. splint applied. Coronavirus screen: Proceed with normal triage. Ebola Screen: Patient negative for fever greater than or equal to 101.5 degrees Fahrenheit, and additional compatible Ebola Virus Disease symptoms Patient denies exposure to infectious person. Patient denies travel to an Ebola-affected area in the 21 days before illness onset. Initial Sepsis Screen: Does the patient meet any 2 criteria? No. Patient's initial sepsis screen is negative. Does the patient have a suspected source of infection? No. Patient's initial sepsis screen is negative. Risk Assessment: Do you want to hurt yourself or someone else? Patient reports no desire to harm self or others. Note had a recent hip surgery last december stated by EMS. Onset of symptoms was February 29, 2020. 01:08 Method Of Arrival: EMS: [facility] rr5 01:08 Acuity: BALTAZAR 3 rr5 01:08 Care prior to arrival: Medication(s) given: norco 5mg patients medication. rr5 Historical: - Allergies: 01:13 Trimox; rr5 01:13 Tylox; rr5 - Home Meds: 01:13 acetaminophen-codeine 300-15 mg Oral tab 1 tab every 6 hours [Active]; duloxetine 30 mg rr5 Oral cpDR 1 cap once daily [Active]; Jardiance 25 mg Oral tab 1 tab once daily [Active]; triamterene-hydrochlorothiazid 37.5-25 mg Oral tab 1 tab once daily [Active]; clopidogrel 75 mg Oral tab 1 tab once daily [Active]; omeprazole 40 mg Oral cpDR 1 cap once daily [Active]; Anoro Ellipta 62.5-25 mcg/actuation inhalation dsdv 1 puff once daily [Active]; simvastatin 20 mg Oral tab 1 tab once daily [Active]; Prednisone Oral [Active]; Ventolin Rotahaler/Rotacaps Inhl [Active]; Trimox Oral [Active]; - PMHx: 01:13 Depression; Diabetes - NIDDM; GERD; High Cholesterol; Hypertension; rr5 01:25 COPD; lung cancer; rr5 - PSHx: 01:13 hip surgery; Knee surgery; rr5 - Immunization history:: Adult Immunizations up to date. - Social history:: Smoking status: unknown Patient/guardian denies using alcohol, street drugs. Screenin:23 Abuse screen: Denies threats or abuse. Denies injuries from another. Nutritional rr5 screening: No deficits noted. Tuberculosis screening: No symptoms or risk factors identified. Fall Risk Fall in past 12 months (25 points). Gait- Impaired (20 pts.). Total [place] Fall Scale indicates High Risk Score (45 or more points). Fall prevention measures have been instituted. Side Rails Up X 2 Placed Close to Nursing Station Frequent Obs/Assessments Occuring As available patient and family educated on Fall Prevention Program and Strategies. Assessment: 01:21 General: Appears in no apparent distress. uncomfortable, Behavior is calm, cooperative, rr5 appropriate for age. Pain: Complains of pain in right wrist Pain does not radiate. Pain currently is 1 out of 10 on a pain scale. Quality of pain is described as aching, Pain began suddenly, Is intermittent. Neuro: Level of Consciousness is awake, alert, obeys commands, Oriented to person, place, time, situation, Denies LOC. Cardiovascular: Capillary refill < 3 seconds Patient's skin is warm and dry. Pulses are palpable in right radial artery and left radial artery. Respiratory: Airway is patent Respiratory effort is even, unlabored, Respiratory pattern is regular, symmetrical. GI: No signs and/or symptoms were reported involving the gastrointestinal system. : No signs and/or symptoms were reported regarding the genitourinary system. EENT: No signs and/or symptoms were reported regarding the EENT system. Derm: Skin is intact, is healthy with good turgor, Skin temperature is warm. Musculoskeletal: Capillary refill < 3 seconds, Swelling present in right wrist. 03:00 Reassessment: ED provider Explained the procedure to patient and she verbally agreed rr5 for the procedure. manual reduction under hematoma block done. repeat xray done. 04:00 Reassessment: Patient appears in no apparent distress at this time. Patient is alert, rr5 oriented x 3, equal unlabored respirations, skin warm/dry/pink. awaiting for reevaluation Patient states symptoms have improved. 04:30 Reassessment: Patient appears in no apparent distress at this time. reassess by ED rr5 provider with order made and carried out. 05:25 Reassessment: Patient appears in no apparent distress at this time. Patient is alert, rr5 oriented x 3, equal unlabored respirations, skin warm/dry/pink. ED provider readjust the manual reduction of left wrist. sugar tong splint applied.repeat xray done. 06:24 Reassessment: Patient appears in no apparent distress at this time. Patient is alert, rr5 oriented x 3, equal unlabored respirations, skin warm/dry/pink. discharge instruction given and explained without complaint made. Patient states symptoms have improved. Vital Signs: 01:08 BP 177 / 84; Pulse 95; Resp 20; Temp 98.2; Pulse Ox 98% ; Weight 79.38 kg; Height 5 ft. rr5 4 in. (162.56 cm); Pain 1/10; 02:16 BP 142 / 80; Pulse 91; Resp 19; Pulse Ox 100% ; rr5 03:00 BP 133 / 70; Pulse 80; Resp 16; Pulse Ox 99% ; rr5 04:00 BP 115 / 92; Pulse 92; Resp 16; Pulse Ox 99% ; rr5 05:00 BP 125 / 82; Pulse 89; Resp 20; Pulse Ox 97% ; rr5 06:15 BP 131 / 75; Pulse 82; Resp 19; Pulse Ox 99% ; rr5 01:08 Body Mass Index 30.04 (79.38 kg, 162.56 cm) rr5 ED Course: 01:08 Patient arrived in ED. cl3 01:08 Hakan Heath, NGOZI is Primary Nurse. rr5 01:08 Rey Crawley MD is Attending Physician. mh7 01:11 Triage completed. rr5 01:23 Patient has correct armband on for positive identification. Bed in low position. Call rr5 light in reach. Side rails up X2. Pulse ox on. NIBP on. 01:25 Arm band placed on left wrist. Affected limb iced. rr5 02:24 Wrist Right 3 View XRAY In Process Unspecified. EDMS 02:24 Hand Right 3 View XRAY In Process Unspecified. EDMS 03:09 Assist provider with reduction of right wrist using traction, manipulation, Set up for rr5 procedure. Performed by Rey Crawley MD Immobilized with sugar tong splint Patient tolerated well. under local hematoma block. 03:16 Orthoglass splint: Sugar tong splint applied on right arm. tt3 03:16 Sling applied to right arm. rr5 03:26 Wrist Right 3 View XRAY In Process Unspecified. EDMS 05:41 Patient did not have IV access during this emergency room visit. rr5 05:51 Wrist Right 3 View XRAY In Process Unspecified. EDMS 05:54 Rashad Ortiz MD is Referral Physician. 7 Administered Medications: 03:00 Drug: Lidocaine (1 %) 10 ml {Note: given by dr. crawley.} Volume: 5 ml; Route: rr5 Infiltration; 04:00 Follow up: Response: No adverse reaction rr5 04:32 Drug: morphine 4 mg Route: IM; Site: left deltoid; jd3 05:30 Follow up: Response: No adverse reaction; RASS: Alert and Calm (0) rr5 Outcome: 05:55 Discharge ordered by . [facility] 06:25 Discharged to home via wheelchair, with family. rr5 06:25 Condition: stable 06:25 Discharge instructions given to patient, Instructed on discharge instructions, follow up and referral plans. Demonstrated understanding of instructions, follow-up care. 06:25 Patient left the ED. rr5 Signatures: Dispatcher [employer] EDJacinto Claudio RN RN jd3 Hakan Heath RN RN rr5 Randee Bernabe 3 Rey Crawley MD MD 7 Markos Aguilar tt3 Corrections: (The following items were deleted from the chart) 05:32 03:09 Assist provider with reduction of right wrist using traction, manipulation, Set rr5 up for procedure. Performed by Rey Crawley MD Immobilized with sugar tong splint Patient tolerated well. rr5
--- NOTE | 2020-03-03 16:45 | EDPHYS ---
Physician Documentation [facility] Name: Yang Hernandez Age: 84 yrs Sex: Female : 1935 Arrival Date: 02/29/2020 Time: 01:08 Bed 8 Private MD: ED Physician Rey Crawley HPI: 02/28 01:20 This 84 yrs old Female presents to ER via EMS with complaints of Fall Injury. [facility] 01:20 Details of fall: The patient fell from an upright position, while walking, and struck [facility] wood candis. Onset: The symptoms/episode began/occurred just prior to arrival, today. Onset: The symptoms/episode began/occurred just prior to arrival, today. Associated injuries: The patient sustained right wrist, painful injury, swelling. Severity of symptoms: At their worst the symptoms were moderate, just prior to arrival, in the emergency department the symptoms have improved, moderately. 01:20 Patient states that she tripped and fell due to her shoe getting caught on a rug at [facility] home tonight. She denies any symptoms prior to falling including headache, chest pain, SOB, abdominal pain, nausea, vomiting, dizziness, or weakness. She denies any head injury or LOC.. Historical: - Allergies: 01:13 Trimox; rr5 01:13 Tylox; rr5 - Home Meds: 01:13 acetaminophen-codeine 300-15 mg Oral tab 1 tab every 6 hours [Active]; duloxetine 30 mg rr5 Oral cpDR 1 cap once daily [Active]; Jardiance 25 mg Oral tab 1 tab once daily [Active]; triamterene-hydrochlorothiazid 37.5-25 mg Oral tab 1 tab once daily [Active]; clopidogrel 75 mg Oral tab 1 tab once daily [Active]; omeprazole 40 mg Oral cpDR 1 cap once daily [Active]; Anoro Ellipta 62.5-25 mcg/actuation inhalation dsdv 1 puff once daily [Active]; simvastatin 20 mg Oral tab 1 tab once daily [Active]; Prednisone Oral [Active]; Ventolin Rotahaler/Rotacaps Inhl [Active]; Trimox Oral [Active]; - PMHx: 01:13 Depression; Diabetes - NIDDM; GERD; High Cholesterol; Hypertension; rr5 01:25 COPD; lung cancer; rr5 - PSHx: 01:13 hip surgery; Knee surgery; rr5 - Immunization history:: Adult Immunizations up to date. - Social history:: Smoking status: unknown Patient/guardian denies using alcohol, street drugs. ROS: 01:20 Constitutional: Negative for fever, chills, and weight loss, Eyes: Negative for injury, mh7 pain, redness, and discharge, ENT: Negative for injury, pain, and discharge, Neck: Negative for injury, pain, and swelling, Cardiovascular: Negative for chest pain, palpitations, and edema, Respiratory: Negative for shortness of breath, cough, wheezing, and pleuritic chest pain, Abdomen/GI: Negative for abdominal pain, nausea, vomiting, diarrhea, and constipation, Back: Negative for injury and pain, : Negative for injury, bleeding, discharge, and swelling, Skin: Negative for injury, rash, and discoloration, Neuro: Negative for headache, weakness, numbness, tingling, and seizure, Psych: Negative for depression, anxiety, suicide ideation, homicidal ideation, and hallucinations, Allergy/Immunology: Negative for hives, rash, and allergies, Endocrine: Negative for neck swelling, polydipsia, polyuria, polyphagia, and marked weight changes, Hematologic/Lymphatic: Negative for swollen nodes, abnormal bleeding, and unusual bruising. Exam: 01:20 Constitutional: This is a well developed, well nourished patient who is awake, alert, mh7 and in no acute distress. Head/Face: Normocephalic, atraumatic. Eyes: Pupils equal round and reactive to light, extra-ocular motions intact. Lids and lashes normal. Conjunctiva and sclera are non-icteric and not injected. Cornea within normal limits. Periorbital areas with no swelling, redness, or edema. ENT: Nares patent. No nasal discharge, no septal abnormalities noted. Tympanic membranes are normal and external auditory canals are clear. Oropharynx with no redness, swelling, or masses, exudates, or evidence of obstruction, uvula midline. Mucous membranes moist. Neck: Trachea midline, no thyromegaly or masses palpated, and no cervical lymphadenopathy. Supple, full range of motion without nuchal rigidity, or vertebral point tenderness. No Meningismus. Chest/axilla: Normal chest wall appearance and motion. Nontender with no deformity. No lesions are appreciated. Cardiovascular: Regular rate and rhythm with a normal S1 and S2. No gallops, murmurs, or rubs. Normal PMI, no JVD. No pulse deficits. Respiratory: Lungs have equal breath sounds bilaterally, clear to auscultation and percussion. No rales, rhonchi or wheezes noted. No increased work of breathing, no retractions or nasal flaring. Abdomen/GI: Soft, non-tender, with normal bowel sounds. No distension or tympany. No guarding or rebound. No evidence of tenderness throughout. Back: No spinal tenderness. No costovertebral tenderness. Full range of motion. Skin: Warm, dry with normal turgor. Normal color with no rashes, no lesions, and no evidence of cellulitis. 01:20 Neuro: Awake and alert, GCS 15, oriented to person, place, time, and situation. Cranial nerves II-XII grossly intact. Motor strength 5/5 in all extremities. Sensory grossly intact. Cerebellar exam normal. Normal gait. Psych: Awake, alert, with orientation to person, place and time. Behavior, mood, and affect are within normal limits. 01:20 Musculoskeletal/extremity: Extremities: noted in the right wrist: pain, swelling, tenderness, ROM: limited passive range of motion, in the right wrist, limited active range of motion due to pain, in the right wrist, limited passive range of motion due to pain, in the right wrist, Circulation is intact in all extremities. Pulses: are normal with no appreciated deficits, Perfusion: the patient is normally perfused throughout, Perfusion: the extremity is normally perfused throughout, Sensation intact. Compartment Syndrome exam of affected extremity: is normal. no numbness, no tingling, no sensation deficit, no palor, no weak pulses, Joints: the right wrist displays painful range of motion, swelling, tenderness, Tendon exam: specific tendon testing normal through active and passive range of motion Vital Signs: 01:08 BP 177 / 84; Pulse 95; Resp 20; Temp 98.2; Pulse Ox 98% ; Weight 79.38 kg; Height 5 ft. rr5 4 in. (162.56 cm); Pain 1/10; 02:16 BP 142 / 80; Pulse 91; Resp 19; Pulse Ox 100% ; rr5 03:00 BP 133 / 70; Pulse 80; Resp 16; Pulse Ox 99% ; rr5 04:00 BP 115 / 92; Pulse 92; Resp 16; Pulse Ox 99% ; rr5 05:00 BP 125 / 82; Pulse 89; Resp 20; Pulse Ox 97% ; rr5 06:15 BP 131 / 75; Pulse 82; Resp 19; Pulse Ox 99% ; rr5 01:08 Body Mass Index 30.04 (79.38 kg, 162.56 cm) rr5 Procedures: 06:08 Splinting: Splint applied to right forearm using Orthoglass splint, applied by tech. [facility] post reduction film - reveals improved alignment, still with some displacement and angulation, Examined by me, post splint application: neurovascular intact, 2+ distal pulses palpable, brisk capillary refill noted, Patient tolerated well. Nerve block:. Performed Hematoma block of right wrist. Dorsal aspect of right wrist cleaned and injected with lidocaine 1% without Epinephrine 5 ml to anesthetize fracture site. Patient tolerated well.. MDM: 01:19 Patient medically screened. [facility] 05:53 Differential diagnosis: abrasion, contusion, fracture, sprain. Data reviewed: vital [facility] signs, nurses notes, EMS record, radiologic studies, plain films. Data interpreted: Pulse oximetry: on room air is 97 %. Interpretation: normal. Counseling: I had a detailed discussion with the patient and/or guardian regarding: the historical points, exam findings, and any diagnostic results supporting the discharge/admit diagnosis, lab results, radiology results, the need for outpatient follow up. 06:08 ED course: Well appearing, NAD, VSS, NVI, no focal neurological deficits. Two attempts [facility] made to reduce fracture of right distal forearm with mild improvement. Patient declined any further attempts. She requested to be discharged from the ED. She will follow up with orthopedics but agreed to return to the ED if worsening of condition or other concerns.. 02/28 01:20 Order name: Wrist Right 3 View XRAY 7 02/28 01:20 Order name: Hand Right 3 View XRAY 7 02/28 03:08 Order name: Wrist Right 3 View XRAY 5 02/28 05:28 Order name: Wrist Right 3 View XRAY 7 02/28 03:14 Order name: Sling; Complete Time: 03:14 rr5 02/28 03:14 Order name: Sugar Tong Forearm Splint; Complete Time: 03:14 rr5 Administered Medications: 03:00 Drug: Lidocaine (1 %) 10 ml {Note: given by dr. crawley.} Volume: 5 ml; Route: rr5 Infiltration; 04:00 Follow up: Response: No adverse reaction rr5 04:32 Drug: morphine 4 mg Route: IM; Site: left deltoid; jd3 05:30 Follow up: Response: No adverse reaction; RASS: Alert and Calm (0) rr5 Disposition: 02/29/20 05:55 Discharged to Home. Impression: Unspecified fracture of right forearm. - Condition is Stable. - Discharge Instructions: Forearm Fracture, [id number]. - Medication Reconciliation Form, Thank You Letter, Antibiotic Education, Prescription Opioid Use form. - Follow up: Rashad Ortiz MD; When: 1 - 2 days; Reason: Worsening of condition, Continuance of care. - Problem is new. - Symptoms have improved. Signatures: Dispatcher [employer] EDJacinto Claudio RN RN jd3 Hakan Heath RN RN rr5 Rey Crawley MD MD mh7 Corrections: (The following items were deleted from the chart) 06:25 05:55 02/29/2020 05:55 Discharged to Home. Impression: Unspecified fracture of right rr5 forearm. Condition is Stable. Forms are Medication Reconciliation Form, Thank You Letter, Antibiotic Education, Prescription Opioid Use. Follow up: Rashad Ortiz; When: 1 - 2 days; Reason: Worsening of condition, Continuance of care. Problem is new. Symptoms have improved. mh7
== END 2020-02-29 06:25 | disposition home or self-care (01) ==
LOC: ER 01:06
PROC: 2W3CX1Z Immobilization of Right Lower Arm using Splint (ICD-10-PCS; principal; 2020-02-29)
DX: S52.91XA Unspecified fracture of right forearm, initial encounter for closed fracture (principal); W18.09XA Striking against other object with subsequent fall, initial encounter; Y93.01 Activity, walking, marching and hiking; Y92.9 Unspecified place or not applicable; Z88.6 Allergy status to analgesic agent; Z85.118 Personal history of other malignant neoplasm of bronchus and lung; I10 Essential (primary) hypertension; E78.00 Pure hypercholesterolemia, unspecified; E11.9 Type 2 diabetes mellitus without complications; F32.9 Major depressive disorder, single episode, unspecified
CPT/HCPCS: 96372; 99284

== ENCOUNTER 2020-03-14 10:32 | Day surgery (SDC) | payer OTHER ==
--- OUTSIDE RECORDS SUMMARY | 2020-03-14 10:37 | XMS REPORT | Clinical Summary ---
:1935 Author Organization [facility] Address [address] [place] [address] Care Team Providers Name Role Phone Unavailable [...] ADLs Jack Mantilla MD 12/22/2019 Travel after 03/14/2019 Social History Tobacco Use Types Packs/Day Years [...] Not on file Implants Implanted Type Area Jewel Setter Device Shelf Model / Identifier Expiration Date Ser ial / Lot 4.5 X 74 Locking Screw Right: [employer] [id number] / Implanted: Qty: 1 on 12/23/2019 by Nadeem De Oliveira MD L eg / 4.5 X 80 Locking Screw Right: [employer] [id number] / Implanted: Qty: 1 on 12/23/2019 by Nadeem De Oliveira MD L eg / 8 Hole Right Dital Femur Plate Right: [employer] [id number] / Implanted: Qty: 1 on 12/23/2019 by Nadeem De Oliveira MD L eg / 4.5 X 28 Screw Right: [employer] [id number] / Implanted: Qty: 1 on 12/23/2019 by Nadeem De Oliveira MD L eg / 4.5 X 32 Screw Right: [employer] [id number] / Implanted: Qty: 1 on 12/23/2019 by Nadeem De Oliveira MD L eg / 4.5 X 34 Screw Right: [employer] [id number] / Implanted: Qty: 1 on 12/23/2019 by Nadeem De Oliveira MD L eg / 4.5 X 60 Screw Right: [employer] [id number] / Implanted: Qty: 1 on 12/23/2019 by Nadeem De Oliveira MD L eg / 4.5 X 76 Screw Right: [employer] [id number] / Implanted: Qty: 1 on 12/23/2019 by Nadeem De Oliveira MD L eg / 4.5 X 80 Screw Right: [employer] [id number] / Implanted: Qty: 1 on 12/23/2019 by Atassi, Nadeem Juan, MD L eg / 4.5 X 70 Locking Screw Right: [employer] [id number] / Implanted: Qty: 1 on 12/23/2019 by Nadeem De Oliveira MD L eg / Explanted Type Area Jewel Setter Device Shelf Model / Identifier Expiration Serial / Date Lot Wire Waqar Trcr Pt [id number] - [id number] IMPLANTS Right: [employer] [employer] & [id number] / Explanted: Qty: 3 on 12/23/2019 Leg [...] i n the results section . after 03/14/2019 Results EKG-SCANNED (12/28/2019 8:30 AM CDT) Narrative Performed At This result has an attachment that is no t available. POC-Glucose meter (12/27/2019 11:47 AM CDT)Only the most recent of16 results within the time period is included. POC-Glucose Meter 146 (H)Comment: : TESTED 70 - 110 mg/dL [facility] AT [address] [facility] [place] [address]: Roof Shingler/[place] Stitcher ID = [id number] for LEX MCKEON Specimen Blood Performing Organization Address City/State/Zipcode Phone Number [facility] [address] [place] [address] CENTER CBC with platelet count + automated diff (12/27/2019 4:22 AM CDT)Only the most recent of2 resultswithin the time period is included. WBC 8.3 3.5 - 10.5 K/L [facility] RBC 3.77 (L) 3.93 - 5.22 M/L [facility] Hemoglobin 10.4 (L) 11.2 - 15.7 GM/DL [facility] Hematocrit 33.3 (L) 34.1 - 44.9 % [facility] MCV 88.3 79.4 - 94.[address] [facility] MCH 27.6 25.6 - 32.[address] [facility] MCHC 31.2 (L) 32.2 - 35.5 GM/DL [facility] RDW 15.2 (H) 11.7 - 14.4 % [facility] Platelets 301Comment: Discordant 150 - 450 K/CU MM [facility] result .clinical [facility] [address] correlation required. MPV [...] Neutros 6.21 (H) 1.56 - 6.13 K/L [facility] # Lymphs 1.08 (L) 1.18 - 3.74 K/L [facility] # Monos 0.74 (H) 0.24 - 0.36 K/L [facility] # Eos 0.16 0.04 - 0.36 K/L [facility] ER # Baso 0.02 0.01 - 0.08 K/L [facility] CENT ER Immature 1 0 - 1 % [facility] Granulocytes-Relative [facility] Specimen Blood Performing Organization Address City/[facility]/Zipcode Phone Number [address] [address] [place] Vitamin D, 25-Hydroxy (12/26/2019 4:05 AM CDT) Vitamin D 25-Hydroxy 7.0 6.6 - 49.9 ng/mL [facility] Specimen Blood Narrative Performed At Effective 07/13/2017: Reference Range Ch cliff [facility] New: 6.6-49.9 ng/mL Previous: 13.0-47.8 ng/mL Recommended Vitamin D Target Range: 30.0-40.0 ng/mL Roof Shingler ID - AJ Álvarez Performing Organization Address [facility] Phone Number [address] [address] CENTER Hemoglobin and hematocrit (12/25/2019 4:34 PM CDT) Hemoglobin 9.9 (L) 11.2 - 15.7 GM/DL [facility] Hematocrit 31.2 (L) 34.1 - 44.9 % [facility] Specimen Blood Narrative Performed At Roof Shingler ID - [id number] [facility] Performing Organization Address [facility] Phone Number [address] [address] CENTER CBC (Hemogram only) (12/25/2019 4:35 AM CDT)Only the most recent of2 results within the time period is included. WBC 9.2 3.5 - 10.5 K/L [facility] RBC 3.37 (L) 3.93 - 5.22 M/L [facility] Hemoglobin 9.7 (L) 11.2 - 15.7 GM/DL [facility] Hematocrit 30.3 (L) 34.1 - 44.9 % [facility] MCV 89.9 79.4 - 94.8 fL [facility] MCH 28.8 25.6 - 32.2 pg [facility] MCHC 32.0 (L) 32.2 - 35.5 GM/DL [facility] RDW 15.3 (H) 11.7 - 14.4 % [facility] Platelets 185 150 - 450 K/CU MM [facility] MPV 9.7 9.4 - 12.3 fL [facility] nRBC 0 0 - 0 /100 WBC [facility] Specimen Blood Performing Organization Address City/State/Zipcode Phone Number [facility] [address] [place] [address] CENTER Basic Metabolic Panel (12/25/2019 4:35 AM CDT)Only the most recent of2 results within the time period is included. Sodium 137 136 - 145 meq/L [facility] Potassium 3.8 3.5 - 5.1 meq/L [facility] Chloride 105 98 - 107 meq/L [facility] CO2 23 22 - 29 meq/L [facility] BUN 15 7 - 21 mg/dL [facility] Creatinine 0.84 0.57 - 1.25 mg/dL [facility] Glucose 141 (H) 70 - 105 mg/dL [facility] Calcium 8.7 8.4 - 10.2 mg/dL [facility] EGFR 65Comment: ESTIMATED GFR IS mL/min/1.73 sq m [facility] NOT ACCURATE CREATININE [facility] CENTER CLEARANCE IN PREDICTING GLOMERULAR FILTRATION RATE. ESTIMATED GFR IS NOT APPLICABLE FOR DIALYSIS PATIENTS. Specimen Blood Narrative Performed At Roof Shingler ID - AJ Álvarez [facility] Performing Organization Address City/State/[facility] Phone Number [facility] [address] [place] [address] CENTER TRANSFUSION SERVICE REPORT - SCAN (12/24/2019 5:50 PM CDT)Only the most recent of2 resultswithin the time period is included. Narrative Performed At This result has an attachment that is no t available. Prepare Leuko-Red RBC (12/23/2019 4:14 PM CDT) CROSSMATCH COMPATIBLE SAFETRACE TX Unit ABO O Pos SAFETRACE TX UNIT NUMBER [id number] SAFETRACE TX Status RETURNED FROM ISSUE SAFETRACE TX Blood Bank Product RED BLOOD CELLS SAFETRACE TX PRODUCT CODE [id number] SAFETRACE TX CROSSMATCH COMPATIBLE SAFETRACE TX Unit ABO O Pos SAFETRACE TX UNIT NUMBER [id number] SAFETRACE TX Status RETURNED FROM ISSUE SAFETRACE TX Blood Bank Product RED BLOOD CELLS SAFETRACE TX PRODUCT CODE [id number] SAFETRACE TX Specimen Other Performing Organization Address City/State/[facility] Phone Number SAFETRACE TX FL fluoro non-specific [...] MD Report Verified Date/Time:12/23/2019 16:04:47 Reading Location: [facility] C013Y CT Body R eading Room [...] Verified Date/Time: 12/23/2019 1 6:04:47 Reading Location: [facility] B1 C013Y CT Body R eading Room Performing Organization Address City/[facility]/Zipcode Phone Number Vers[facility] ABORH, manual (12/23/2019 11:32 AM CDT) Factor POS [facility] ABO Grouping O [facility] Specimen Blood Performing Organization Address [facility] Phone Number [facility] [address] [place], [place] [phone] CT lower extremity without IV contrast right (12/22/2019 10:08 PM CDT) Specimen Narrative Performed At FINAL REPORT [facility] CLINICAL HISTORY: Right femur fracture COMPARISON: None. [...] 366 ms QTC Calculation(Bazett) 459 ms P Hudson 49 degrees R Hudson 27 degrees T Hudson 131 degrees Sinus rhythm with Premature atrial [...] 366 ms QTC Calculation(Bazett) 459 ms P Hudson 49 degrees R Hudson 27 degrees T Hudson 131 degrees Sinus rhythm with Premature atrial compl exes Septal infarct , age undetermined Nonspecific T wave abnormality Abnormal ECG No previous ECGs available Confirmed by MD Mcclure Roberto ([id number]) on 12/23/2019 8:44:02 AM Performing Organization Address [facility] Phone Number GE MUSE Type and screen, automated (12/22/2019 8:54 PM CDT) ABO/RH AUTOMATED (BEAKER) O POSITIVE [facility] Ab Scrn NEGATIVE [facility] Specimen Blood Performing Organization Address [facility] Phone Number [address] [address] Prothrombin time/INR (12/22/2019 8:54 PM CDT) Protime 12.6 11.9 - 14.2 seconds [facility] INR 1.0 <=5.9 [facility] Specimen Blood Narrative Performed At Effective 02/28/2019: PT Reference Range [facility] Change New: 11.9-14.2Previous: 11.7-14.7 RECOMMENDED COUMADIN/WARFARIN INR THERAPY RANGES STANDARD DOSE: 2.0-3.0Includes: PROPHYLAXIS for venous thrombosis, systemic embolization; TREATMENT for venous thrombosis and/or pulmonary embolus. HIGH RISK: Target INR is 2.5-3.5 for patients wiht mechanical heart valves. Performing Organization Address [facility] Phone Number [address] [address] [place] Comprehensive metabolic panel (12/22/2019 8:54 PM CDT) Protein, Total 7.1 6.0 - 8.3 gm/dL [facility] ER Albumin 4.3 3.5 - 5.0 g/dL [facility] Alkaline Phosphatase 134 40 - 150 U/L [facility] Total [...] ER Creatinine 0.95 0.57 - 1.25 mg/dL [facility] ER Glucose 190 (H) 70 - 105 mg/dL [facility] ER Calcium 9.0 8.4 - 10.2 mg/dL [facility] ER AST 15 5 - 34 U/L [facility] ALT 16 6 - 55 U/L [facility] ER EGFR 56Comment: ESTIMATED GFR mL/min/1.73 sq m [facility] IS NOT ACCURATE [facility] CREATININE CLEARANCE IN PREDICTING GLOMERULAR FILTRATION RATE. ESTIMATED GFR IS NOT APPLICABLE FOR DIALYSIS PATIENTS. Specimen Blood Narrative Performed At Roof Shingler ID - DB [facility] Performing Organization Address City/State/Zipcode Phone Number [facility] [address] [place] [address] CENTER XR femur 2 views right (12/22/2019 8:00 PM CDT) Specimen Narrative Performed At FINAL REPORT [facility] CLINICAL HISTORY: Trauma and pain COMPARISON: [...] 0:35:26 Performing Organization Address City/State/Zipcode Phone Number [facility] XR pelvis 1 or 2 views (12/22/2019 7:49 PM CDT) Specimen Narrative Performed At FINAL REPORT [facility] CLINICAL HISTORY: Trauma and pain COMPARISON: [...] Address City/State/Zipcode Phone Number GE RIS after 03/14/2019 Insurance Payer Benefit Plan / Group Subscriber ID Type Phone A ddress [facility] [employer] MED[employer] HMO xxxxxxxxx MGD CARE Advance Directives For more information, please contact:[address] [phone] Code Status Date Activated Date Inactivated Comments Full Code 12/22/2019 6:36 PM 12/27/2019 6:46 PM This code status was determined by: Patient
--- OUTSIDE RECORDS SUMMARY | 2020-03-14 10:40 | XMS REPORT | Continuity of Care Document ---
:1935 Author Organization [facility] t Address [address] [place] [address] Dr. Ordaz [address] [place] [id number] Care Team Providers Name Role Phone Siva Douglas MD Attending Clinician [phone] Sandy Truong MD Attending Clinician Jose Rafael KENT Attending Clinician Carrie Jorge MD Attending Clinician Juan De Oliveira MD Attending Clinician SIVA DOUGLAS Attending Clinician Unavailable Sandy TRUONG Admitting Clinician Unavailable Payers Payer Name Policy Type Policy Number Effective Date Expiration Date [facility] xxxxxxxxx [facility] H[facility]x Problems Condition Condition Condition Status Onset Resolution Last Treating Co mments Source Name Details Category Date Date Treatment Clinician Date Vitamin D Vitamin D Disease Active [facility] deficiency deficiency 12-25 Karyn kes - 00:: Medical 00 Center History of History of Disease Active [facility] stroke stroke 12-25 [facility] - [facility] Medical 00 Center Other Other Disease Resolve 2019-12-26 2019-12-[address] emphysema emphysema d 12-25 00:00:00 13:06:15 [facility] Medical 00 Center Type 2 Type 2 Disease Resolve 2019-12-26 2019-12-[address] [facility] diabetes diabetes d 12-25 00:00:00 13:06:51 Karyn kes - mellitus mellitus 00:00: Medica l without without 00 Center complicati complicati on, on, without without long-term long-term current current use of use of insulin insulin Closed Closed Disease Resolve 2019-12-26 2019-12-[address] [facility] fracture fracture d 3 00:00:00 13:05:51 Karyn kes - of right of right 00:00: Medica l femur femur 00 Center Displaced Displaced Disease Resolve 2019-12-26 2019-12-[address] supracondy supracondy d 12-21 00:00:00 13:05:53 [facility] - lar lar 00:00: Medical fracture fracture 00 Center without without intracondy intracondy lar lar extension extension of lower of lower end of end of right right femur, femur, initial initial encounter encounter for closed for closed fracture fracture Allergies, Adverse Reactions, Alerts Allergy Allergy Status Severity Reaction(s) Onset Inactive Treating Comm ents Source Name Type Date Date Clinician Amoxicil Propensi Active Hiv [facility] celina ty to 12-21 [facility] - adverse 00:00: Medical reaction 00 Center s Social History Social Habit Start Date Stop Date Quantity Comments Source History SDOH Alcohol [facility] - Std Drinks [facility] History SDOH Alcohol [facility] - Binge [facility] Sex Assigned At [facility] History SDOH Alcohol 2019-12-22 2019-12-22 1 [facility] - Frequency 00:00:00 00:00:00 [facility] Center Smoking Status Start Date Stop Date Source Former smoker 2019-12-24 00:00:00 2019-12-24 00:00:00 [facility] Medications Ordered Filled Start Stop Current Ordering Indication Dosage Frequency Signature Comments Components Source Medication Medication Date Date Medication? Clinician (SIG) Name Name ergocalcife 2020- No 52771I Q7D Take [address] rol - 05- capsule [facility] - (ERGOCALCIF 00:00: 23:59 (50,000 Me dical LUIS ALFREDO) 1,250 00 :00 Units Center mcg (50,000 total) by unit) mouth once capsule a week for 56 days. calcium 2020- No 1{tbl} QD Take 1 [facility] t carbonate-v 3 04-25 tablet by Karyn tobin - itamin D3 00:00: 23:59 mouth Medica l (OSCAL-D) 00 :00 daily for Cente r 500 30 days. mg(1,250mg) -200 unit per tablet celecoxib 2020-0 2020- No 100mg Take [address] (CELEBREX) 3-25 03-25 mg by [facility] - 100 MG 14:39: 00:00 mouth Medical capsule 59 :00 every 12 Center (twelve) hours as needed for Pain. acetaminoph 2020-0 Yes 1{tbl} Take [address] en-codeine 3-21 tablet by Mickey s - (TYLENOL 18:27: mouth Medical #3) 300-30 08 every 4 Center mg per (four) tablet hours as needed for Pain. triamterene 2020-0 Yes .5{tbl} QD Take 0.[address] -hydroCHLOR 3-21 tablets by Karyn fosters - Othiazide 18:27: mouth Medical (MAXZIDE-25 08 daily. Center ) 37.5-25 mg per tablet simvastatin 2019-0 Yes 20mg QD Take [address] (ZOCOR) 20 3-21 by mouth [facility] - MG tablet 18:25: nightly. [facility] kinza 16 Center umeclidiniu 2019-0 Yes 1{puff} QD Inhale [address] m-vilantero 3-21 puff by [facility]ukes - L (ANORO 18:25: mouth via [facility] ELLIPTA) 16 inhaler Center 62.5-25 every mcg/actuati morning. on DsDv DULoxetine 2019-0 Yes 30mg QD Take [address] (CYMBALTA) 3-02 by mouth [facility] - 30 MG 00:00: daily TAKE Medica l capsule 00 WITH FOOD. Center clopidogreL 2019-0 Yes 75mg QD Take [address] (PLAVIX) 75 1-01 by mouth Luke s - mg tablet 00:00: daily. Medica l 00 Center JARDIANCE 2019-0 Yes 25mg QD Take [address] 25 mg 1-01 by mouth [facility] - tablet 00:00: every Medical 00 morning. Center omeprazole 2019-0 Yes 40mg QD Take [address] (PRILOSEC) 1-01 by mouth [facility] - 40 MG 00:00: daily. Medical capsule 00 Center Vital Signs Vital Name Observation Time Observation Value Comments Source Systolic blood 2019-12-27 14:59:00 143 mm[Hg] [facility] Diastolic blood 2019-12-27 14:59:00 80 mm[Hg] [facility] Heart rate 2019-12-27 14:59:00 84 /min [facility] Body temperature 2019-12-27 14:59:00 35.61 Yocasta [facility] Oxygen saturation in 2019-12-27 14:59:00 98 /min [facility] Arterial blood by Medical Ce nter Pulse oximetry Respiratory rate 2019-12-27 11:43:00 17 /min [facility] Body height 2019-12-25 16:00:[address] [facility] Body weight Measured 2019-12-25 16:00:00 79.833 kg [facility] BMI 2019-12-25 16:00:00 31.18 kg/m2 [facility] Procedures Procedure Date / Time Performed Performing Clinician [facility] e REPORT OF PROCEDURE - 2019-12-28 08:30:36 Provider, Default [facility] ENDOSCOPY SCAN Scanning [facility] POCT-GLUCOSE METER 2019-12-27 11:47:00 [facility] W/PLT COUNT & AUTO 2019-12-27 04:22:00 [facility] 2019-12-26 22:17:00 [facility] 2019-12-26 17:40:00 [facility] POCT-GLUCOSE METER 2019-12-26 08:13:00 [facility] VITAMIN D, 25-HYDROXY 2019-12-26 04:05:00 Mateo Hernandez [facility] POCT-GLUCOSE METER 2019-12-25 17:51:00 [facility] HEMOGLOBIN AND HEMATOCRIT 2019-12-25 16:34:00 Mateo Hernandez [facility] POCT-GLUCOSE METER 2019-12-25 09:42:00 [facility] BASIC METABOLIC PANEL (7) 2019-12-25 04:35:00 MaryAdrianic Nirali moreno [facility] CBC (HEMOGRAM ONLY) 2019-12-25 04:35:00 Mateo Hernandez [facility] TRANSFUSION SERVICE 2019-12-24 17:50:27 Provider, Default [facility] REPORT - SCAN [facility]anning [facility] POCT-GLUCOSE METER 2019-12-24 17:28:00 Jose Rafael [facility] POCT-GLUCOSE METER 2019-12-24 12:41:00 Jose Rafael [facility] POCT-GLUCOSE METER 2019-12-24 07:49:00 Jose Rafael [facility] CBC (HEMOGRAM ONLY) 2019-12-24 03:57:00 Toan Truong [facility] BASIC METABOLIC PANEL (7) 2019-12-24 03:57:00 Toan Truong [facility] POCT-GLUCOSE METER 2019-12-23 21:26:00 Toan Truong [facility] TRANSFUSION SERVICE 2019-12-23 17:50:30 Provider, Default [facility] SCAN [facility] POCT-GLUCOSE METER 2019-12-23 17:49:00 Toan Truong [facility] PREPARE LEUKO-REDUCED RBC 2019-12-23 16:14:00 Kenny Jorge [facility] POCT-GLUCOSE METER 2019-12-23 15:56:00 Toan Truong [facility] FL FLUORO NON-SPECIFIC UP 2019-12-23 15:08:[address] [facility] POCT-GLUCOSE METER 2019-12-23 13:05:00 Toan Truong [facility] ORIF,FEMUR 2019-12-23 12:00:[address] [facility] ABORH, MANUAL 2019-12-23 11:32:00 Karla Parsons [facility] POCT-GLUCOSE METER 2019-12-23 05:38:00 Toan Truong [facility] CT LOWER EXTREMITY 2019-12-22 22:08:00 Nadeem De Oliveira [facility] - WITHOUT IV CONTRAST RIGHT [facility] POCT-GLUCOSE METER 2019-12-22 21:11:00 Toan Truong [facility] ECG 12-LEAD 2019-12-22 21:02:49 Toan Truong [facility] COMPREHENSIVE METABOLIC 2019-12-22 20:54:00 Toan Truong [facility] PROTHROMBIN TIME/INR 2019-12-22 20:54:00 Toan Truong [facility] TYPE AND SCREEN, 2019-12-22 20:54:00 Nadeem De Oliveira [facility] CBC W/PLT COUNT & AUTO 2019-12-22 20:54:00 Toan Truong [facility] XR FEMUR 2 VIEWS RIGHT 2019-12-22 20:00:00 Nadeem De Oliveira [facility] XR PELVIS 1 OR 2 VIEWS 2019-12-22 19:49:00 Nadeem De Oliveira [facility] POCT-GLUCOSE METER 2019-12-22 18:14:00 Toan Truong [facility] Results Test Description Test Time Test Comments Results Result Comments Source POC-Glucose meter 2019-12-27 12:41:00 Test Item Value Reference Range Interpretation Comme nts POC-Glucose Meter (test code = 146 mg/dL 70-110 H : TESTED AT [facility] [address]) [place], [address]: Test Borer/Techni sagar ID = [id number] for EDSON MCKEON Lab Interpretation (test code = Abnormal 05403-4) [facility] [id number] 12:41:00 Test Item Value Reference Range Interpretation Comments POC-GLUCOSE METER 146 mg/dL 70-110 H : TESTED A T [facility] [address] (BEAKER) (test code = UNIQUE Sarkar [facility], 1538) [address]: Test Borer/Techni sagar ID = [id number] for LEX ORTIZ CBC with platelet count + automated [id number] 05:04:00 Test Item Value Reference Range Interpretation Comments WBC (test code = 6690-2) 8.3 3.5- 10.5 K/L RBC (test code = 789-8) 3.77 3.93- 5.22 M/L L MCHC (test code = 786-4) 31.2 32.2- 35.5 GM/DL L Hematocrit (test code = 33.3 % 34.1-44.9 L 4544-3) MCV (test code = 787-2) 88.3 fL 79.4-94.8 MCH (test code = 785-6) 27.6 pg 25.6-32.2 RDW (test code = 788-0) 15.2 % 11.7-14.4 H Platelets (test code = 301 150- 450 K/CU MM D iscordant result 777-3) .clinical correlation required. MPV (test code = 9.3 fL 9.4-12.3 L 63566-3) nRBC (test code = 413) 0 0- 0 /100 WBC % Neutros (test code = 75 % 429) % Lymphs (test code = 13 % 430) % Monos (test code = 9 % 431) % Eos (test code = 432) 2 % % Baso (test code = 437) 0 % # Neutros (test code = 6.21 1.56- 6.13 K/L H 670) # Lymphs (test code = 1.08 1.18- 3.74 K/L L 414) # Monos (test code = 0.74 0.24- 0.36 K/L H 415) # Eos (test code = 416) 0.16 0.04- 0.36 K/L # Baso (test code = 417) 0.02 0.01- 0.08 K/L Immature 1 % 0-1 Granulocytes-Relative (test code = 2801) Lab Interpretation (test Abnormal code = 43173-8) [facility] W/PLT COUNT & AUTO [id number] 05:04:00 Test Item Value Reference Range Interpretation [...] PERCENT (BEAKER) (test code = 2801) POCT-GLUCOSE [id number] 22:28:00 Test Item Value Reference Range Interpretation Comments POC-GLUCOSE METER 182 mg/dL 70-110 H : TESTED A T [facility] [address] (BEAKER) (test code = [facility], 1538) [address]: Test Borer/Techni sagar ID = [id number] for SURESH PAUL POCT-GLUCOSE [id number] 17:52:00 Test Item Value Reference Range Interpretation Comments POC-GLUCOSE METER 177 mg/dL 70-110 H : TESTED A T [facility] [address] (BEAKER) (test code = [facility], 1538) 08273: Test Borer/Techni sagar ID = [id number] for PRABHAKAR ORDOÑEZ POCT-GLUCOSE [id number] 08:26:00 Test Item Value Reference Range Interpretation Comments POC-GLUCOSE METER 124 mg/dL 70-110 H : TESTED A T [facility] [address] (BEAKER) (test code = [facility], 1538) 627[address]: Test Borer/Techni sagar ID = [id number] for LORNE KEATING Vitamin D, 50-[id number] 05:15:00 Test Item Value Reference Range Interpretation Comments Vitamin D 25-Hydroxy 7.0 ng/mL 6.6-49.9 (test code = 2764) MAIN (test code = MAIN) Effective 07/13/2017: Reference Range ChangeNew: 6.6-49.9 ng/mL Previous: 13.0-47.8 ng/mL Recommended Vitamin D Target Range: 30.0-40.0 ng/mLOperator ID - AJ Álvarez Lab Interpretation (test Normal code = 11487-3) [facility], 08-[id number] 05:15:00 Test Item Value Reference Range Interpretation Comments VITAMIN D 25-OH (BEAKER) (test code 7.0 ng/mL 6.6-49.9 = 2764) Effective 07/13/2017: Reference Range ChangeNew: 6.6-49.9 ng/mL Previous: 13.0-47.8 ng/mLRecommended Vitamin D Target Range: 30.0-40.0 ng/mLOperator ID - AJ MPOCT-GLUCOSE [id number] 18:08:00 Test Item Value Reference Range Interpretation Comments POC-GLUCOSE METER 130 mg/dL 70-110 H : TESTED A T [facility] [address] (BEAKER) (test code = UNIQUE Sarkar [facility], 1538) 429[address]: Test Borer/Techni sagar ID = [id number] for LORNE KEATING Hemoglobin and [id number] 16:49:00 Test Item Value Reference Range Interpretation Comments Hemoglobin (test code = 9.9 11.2- 15.7 GM/DL L 786-4) Hematocrit (test code = 31.2 % 34.1-44.9 L 4544-3) MAIN (test code = MAIN) Test Borer ID - [id number] Lab Interpretation (test Abnormal code = 76246-7) [facility] CenterHEMOGLOBIN AND [id number] 16:49:00 Test Item Value Reference Range Interpretation Comments HEMOGLOBIN (BEAKER) (test code = 9.9 GM/DL 11.2-15.7 L 410) HEMATOCRIT (BEAKER) (test code = 31.2 % 34.1-44.9 L 411) Test Borer ID - [id number]-GLUCOSE [id number] 09:56:00 Test Item Value Reference Range Interpretation Comments POC-GLUCOSE METER 130 mg/dL 70-110 H : TESTED A T [facility] 67[address] (BEAKER) (test code = FORTUNATOWY Antonina [facility], 1538) 14396: Test Borer/Techni sagar ID = [id number] for MAGUI DAVIDSON Basic Metabolic [id number] 05:34:00 Test Item Value Reference Range Interpretation Comments Sodium (test code = 137 meq/L 571-739 8849-2) Potassium (test code = 3.8 meq/L 3.5-5.1 2823-3) Chloride (test code = 105 meq/L 98-107 2075-0) CO2 (test code = 23 meq/L 22-29 8-9) BUN (test code = 15 mg/dL 7-21 3094-0) Creatinine (test code 0.84 mg/dL 0.57-1.25 = 2160-0) Glucose (test code = 141 mg/dL 70-105 H 2345-7) Calcium (test code = 8.7 mg/dL 8.4-10.2 85884-7) EGFR (test code = 65 mL/min/1.73 [place] [address]-7) NOT ACCURATE CREATININE CLEARANCE IN PREDICTING GLOMERULAR FILTRATION RATE . ESTIMATED GFR I S NOT APPLICABLE FOR DIALYSIS PATIENTS. MAIN (test code = MAIN) Test Borer ID - AJ M Lab Interpretation Abnormal (test code = 61439-5) [facility] METABOLIC [id number] 05:34:00 Test Item Value Reference Range Interpretation [...] S NOT APPLICABLE FOR DIALYSIS PATIEN TS. Test Borer ID - AJ MCBC (Hemogram only)2019-12-25 05:09:00 Test Item Value Reference Range Interpretation Comments WBC (test code = 6690-2) 9.2 3.5- 10.5 K/L RBC (test code = 789-8) 3.37 3.93- 5.22 M/L L MCHC (test code = 786-4) 32.0 32.2- 35.5 GM/DL L Hematocrit (test code = 4544-3) 30.3 % 34.1-44.9 L MCV (test code = 787-2) 89.9 fL 79.4-94.8 MCH (test code = 785-6) 28.8 pg 25.6-32.2 RDW (test code = 788-0) 15.3 % 11.7-14.4 H Platelets (test code = 777-3) 185 150- 450 K/CU MM MPV (test code = 79663-2) 9.7 fL 9.4-12.3 nRBC (test code = 413) 0 0- 0 /100 WBC Lab Interpretation (test code = Abnormal 10842-7) [facility] (HEMOGRAM ONLY)2019-12-25 05:09:00 Test Item Value Reference [...] 0-0 (BEAKER) (test code = 413) POCT-GLUCOSE [id number] 17:41:00 Test Item Value Reference Range Interpretation Comments POC-GLUCOSE METER 185 mg/dL 70-110 H : TESTED A T [facility] [address] (BEAKER) (test code = [place], 1538) [address]: Test Borer/Techni sagar ID = [id number] for DA VIS, KEYAIRA POCT-GLUCOSE [id number] 12:53:00 Test Item Value Reference Range Interpretation Comments POC-GLUCOSE METER 135 mg/dL 70-110 H : TESTED A T [facility] 6720 (BEAKER) (test code = [facility], 1538) 48978: Test Borer/Techni sagar ID = [id number] for DA VIS, KEYAIRA POCT-GLUCOSE [id number] 08:24:00 Test Item Value Reference Range Interpretation Comments POC-GLUCOSE METER 147 mg/dL 70-110 H : TESTED A T [facility] 67[address] (BEAKER) (test code = [facility], 1538) 71246: Test Borer/Techni sagar ID = [id number] for DA VIS, KEYAIRA BASIC METABOLIC [id number] 04:44:00 Test Item Value Reference Range Interpretation [...] S NOT APPLICABLE FOR DIALYSIS PATIEN TS. Test Borer ID - PIAYA LCBC (HEMOGRAM ONLY)2019-12-24 04:17:00 [...] 0-0 (BEAKER) (test code = 413) POCT-GLUCOSE [id number] 21:38:00 Test Item Value Reference Range Interpretation Comments POC-GLUCOSE METER 131 mg/dL 70-110 H : TESTED A T [facility] [address] (BEAKER) (test code [facility], = 1538) 07102: Test Borer/Techni sagar ID = [id number] for ERICK LOGAN POCT-GLUCOSE [id number] 18:00:00 Test Item Value Reference Range Interpretation Comments POC-GLUCOSE METER 133 mg/dL 70-110 H : TESTED A T [facility] 6720 (BEAKER) (test code = UNIQUE Sarkar [facility], 1538) 99573: Test Borer/Techni sagar ID = [id number] for CHRISTIANA COLEMAN Prepare Leuko-Red [id number] 16:14:00 Test Item Value Reference Range Interpretation Comments CROSSMATCH (test code = COMPATIBLE 2263) Unit ABO (test code = O Pos 3236662) UNIT NUMBER (test code = [id number] 934-0) Status (test code = RETURNED FROM ISSUE 7619951) Blood Bank Product (test RED BLOOD CELLS code = 2263) PRODUCT CODE (test code = R1172H55 933-2) [facility] [id number] 16:08:00 Test Item Value Reference Range Interpretation Comments POC-GLUCOSE METER 128 mg/dL 70-110 H : TESTED A T [facility] 6720 (BEVICENTE) (test code = UNIQUE Sarkar [facility], 1538) 98695: Test Borer/Techni sagar ID = [id number] for Anne-Andres nMargaret [place], FLUORO, NON-SPECIFIC, UP TO 1 [id number] 16:04:00Reason for exam:- >femur fxFINAL REPORT A fluoroscopic unit was utilized for a procedure performed in the operating room. No interpretation was requested. Please refer to the operative report regarding findings. Please refer to PACS for patient radiation dose information. Signed: Jose Francisco Garcia Verified Date/Time: 12/23/2019 16:04:47 Reading Location: [place] [id number] CT Body Reading Room [place] fluoro non-specific up to 1 [id number] 16:04:00Interface, External Ris In - 12/23/2019 4:07 PM CDTFINAL REPORT A fluoroscopic unit was utilized for a procedure performed in the operating room. No interpretation was requested. Please refer to the operative report regarding findings. Please refer to PACS for patient radiationdose information. Signed: Jose Francisco Garcia Verified Date/Time: 12/23/2019 16:04:47 Reading Location: [facility] C013Y CT Body [facility] 2019-12-23 13:17:00 Test Item Value Reference Range Interpretation Comments POC-GLUCOSE METER 132 mg/dL 70-110 H : TESTED A T [facility] 6720 (BEVICENTE) (test code = UNIQUE Sarkar [facility], 1538) 64677: Test Borer/Techni sagar ID = [id number] for JAC SAXENAH, [id number] 11:50:00 Test Item Value Reference Range Interpretation Comments Rh Factor (test code = 2589) POS ABO Grouping (test code = 2588) [facility] [id number] 08:44:06Interface, External Ris In - 12/23/2019 8:44 AM CDTVentricular Rate 95 BPMAtrial Rate 95 BPMP-R Interval 160 msQRS Duration 90 msQ-T Interval 366 msQTC Calculation(Bazett) 459 msP [place] 49 degreesR [place] 27 degreesT [place] 131 degreesSinus rhythm with Premature atrial complexesSeptal infarct , age undeterminedNonspecific T wave abnormalityAbnormal ECGNo previous ECGs availableConfirmed by MD Mcclure Roberto ([id number]) on 12/23/2019 8:44:02 [facility] [id number] 05:50:00 Test Item Value Reference Range Interpretation Comments POC-GLUCOSE METER 130 mg/dL 70-110 H : TESTED A T [facility] 6720 (TERESA) (test code = UNIQUE Antonina [facility], 1538) 91531: Test Borer/Techni sagar ID = [id number] for Cynthia Varner CT, EXTREMITY, LOWER WITHOUT CONTRAST, [id number] 23:04:00FINAL REPORT CLINICAL HISTORY: Right femur fracture [...] Gerard Rich MDReport Verified Date/Time: 12/22/2019 23:04:49 CT lower extremity without IV contrast [id number] 23:04:00Interface, External Ris In - 12/22/2019 11:08 PM CDTFINAL REPORT CLINICAL HISTORY: Right femur fracture COMPARISON: [...] Gerard Rich MDReport Verified Date/Time: 12/22/2019 23:04:49 [facility], [id number] 21:38:00 Test Item Value Reference Range Interpretation Comments ABO/RH AUTOMATED (BEAKER) (test O POSITIVE code = 2260) Ab Scrn (test code = 890-4) NEGATIVE [facility] CenterComprehensive metabolic [id number] 21:31:00 Test Item Value Reference Range Interpretation Comments Protein, Total (test 7.1 6.0- 8.3 gm/dL code = 2885-2) Albumin (test code = 4.3 g/dL 3.5-5 14324-3) Alkaline Phosphatase 134 U/L 40-150 (test code = 6768-6) Total Bilirubin (test 1.3 mg/dL 0.2-1.2 H code = 1974-2) Sodium (test code = 138 meq/L 623-078 4285-2) Potassium (test code = 4.3 meq/L 3.5-5.1 2823-3) Chloride (test code = 104 meq/L 98-107 5-0) CO2 (test code = 25 meq/L 22-29 2027-9) BUN (test code = 19 mg/dL 7-21 3094-0) Creatinine (test code 0.95 mg/dL 0.57-1.25 = 2160-0) Glucose (test code = 190 mg/dL 70-105 H 2345-7) Calcium (test code = 9.0 mg/dL 8.4-10.2 05904-0) AST (test code = 15 U/L 5-34 1920-8) ALT (test code = 16 U/L 6-55 1742-6) EGFR (test code = 56 mL/min/1.[place] [address]-0) NOT ACCURATE CREATININE CLEARANCE IN PREDICTING GLOMERULAR FILTRATION RATE . ESTIMATED GFR I S NOT APPLICABLE FOR DIALYSIS PATIENTS. MAIN (test code = MAIN) Test Borer ID - DB Lab Interpretation Abnormal (test code = 45841-7) [facility] CenterCOMPREHENSIVE METABOLIC [id number] 21:31:00 Test Item Value Reference Range Interpretation [...] = 382) CO2 (BEAKER) (test 25 meq/L -29 code = 355) BLOOD UREA NITROGEN 19 [...] S NOT APPLICABLE FOR DIALYSIS PATIEN TS. Test Borer ID - DBPOCT-GLUCOSE [id number] 21:25:00 Test Item Value Reference Range Interpretation Comments POC-GLUCOSE METER 162 mg/dL 70-110 H : TESTED A T [facility] 6720 (BEVICENTE) (test code = UNIQUE Sarkar [facility], 1538) 07415: Test Borer/Techni sagar ID = [id number] for PATRICK MALDONADO Prothrombin time/[id number] 21:20:00 Test Item Value Reference Range Interpretation Comments Protime (test code = 12.6 11.9- 14.2 5902-2) seconds INR (test code = 1.0 <=5.9 6301-6) MAIN (test code = MAIN) Effective 02/28/2019: PT Reference Range ChangeNew: 11.9-14.2 Previous: 11.7-14.7 RECOMMENDED COUMADIN/WARFARIN INR THERAPY RANGESSTANDARD DOSE: 2.0-3.0 Includes: PROPHYLAXIS for venous thrombosis, systemic embolization; TREATMENT for venous thrombosis and/or pulmonary embolus.HIGH RISK: Target INR is 2.5-3.5 for patients wiht mechanical heart valves. Lab Interpretation Normal (test code = 43746-2) [facility] CenterPROTHROMBIN TIME/[id number] 21:20:00 Test Item Value Reference Range Interpretation [...] mechanical heart valves.CBC W/PLT COUNT & AUTO [id number] 21:17:00 Test Item Value Reference Range Interpretation [...] = 2801) RAD, FEMUR, MIN. 2 VIEWS, [id number] 20:35:00Reason for exam:->right femur fractureShould this be [...] the distal right femur. Signed: Gerard Rich MDR[facility] Verified Date/Time: 12/22/2019 20:35:26 Electronically signedby: GERARD RICH M.D. on 12/22/2019 08:35 PMRAD, PELVIS, 1 OR 2 [id number] 20:35:00Reason for exam:->fall with right femur fractureShould [...] the distal right femur. Signed: Gerard Rich MDRepsaint [facility]ose[facility] center Verified Date/Time: 12/22/2019 20:35:26 XR femur 2 views [id number] 20:35:00Interface, External Ris In - 12/22/2019 8:38 PM CDTFINAL REPORT CLINICAL HISTORY: Trauma and pain COMPARISON: None. FINDINGS: A single view of the supine pelvis and 5 images ofthe right femur are submitted. There is a [...] also noted in the visualized lumbar spine. IMPRES [place]: Comminuted fracture of the distal right femur. Signed: Gerard Rich MDR[facility] Verified Date/Time: 12/22/2019 20:35:26 [facility] or 2 [id number] 20:35:00Interface, External Ris In - 12/22/2019 8:38 PM CDTFINAL REPORT CLINICAL HISTORY: Trauma and pain COMPARISON: None. FINDINGS: A single view of the supine pelvis and 5 images ofthe right femur are submitted. There is a [...] Gerard Rich MDReport Verified Date/Time: 12/22/2019 20:35:26 [facility] [id number] 18:26:00 Test Item Value Reference Range Interpretation Comments POC-GLUCOSE METER 175 mg/dL 70-110 H : TESTED A T [facility] 6720 ([facility]) (test code = [place], 1538) [address]: Test Borer/Techni sagar ID = [id number] for Alisson MILLIGAN
[2020-03-14] MEDS ORDERED: CEFAZOLIN/SWI 1gm 1 GM/10 ML SYR ONE (11:08)
[2020-03-14] MEDS ORDERED: FENTANYL CITR 100 MCG/2 ML ONE (11:15)
[2020-03-14] MEDS ORDERED: dexAMETHasone 10 MG/ML VIAL ONE (11:15)
[2020-03-14] MEDS ORDERED: LIDOCAINE 1% MPF 5 ML VIAL ONE (11:15)
[2020-03-14] MEDS ORDERED: MIDAZOLAM HCL 2 MG/2 ML INJ ONE (11:16)
[2020-03-14] MEDS ORDERED: ROPLVACAINE HCL 20 ML ONE (11:16)
[2020-03-14] MEDS ORDERED: propofoL 200 MG/20 ML VIAL IV ONE ×2 (11:23)
[2020-03-14] MEDS ORDERED: LIDOCAINE 2% MPF 5 ML VIAL ONE (11:24)
[2020-03-14] MEDS: NA CHLORIDE 0.9% 1,000 ML ONE (11:35)
[2020-03-14] MEDS ORDERED: Phenylephrine HCl 10 MG/ML 1 ML VIAL ONE (12:47)
[2020-03-14] MEDS ORDERED: NS 0.9% VIAL 10 ML ONE (12:48)
[2020-03-14] MEDS ORDERED: KETOROLAC 30 MG/ML INJ ONE (12:58)
[2020-03-14] MEDS ORDERED: ONDANSETRON 4 MG/2 ML VIAL ONE (12:58)
[2020-03-14] MEDS ORDERED: dexAMETHasone 4 MG/ML VIAL ONE (12:58)
--- NOTE | 2020-03-14 13:42 | P.BOP ---
Preoperative diagnosis: right displaced 2 part intraarticular distal radius fx Postoperative diagnosis: same Primary procedure: right distal radius ORIF of 2 part intraarticular distal radius fx Estimated blood loss: 10 ccs Anesthesia: General Complications: None Transferred to: Recovery Room Condition: Good
[2020-03-14] MEDS: HYDROMORPHONE HCL 1 MG/ML INJ ONE ×2 (13:55→14:00)
[2020-03-14] MEDS ORDERED: NA CHLORIDE 0.9% 1,000 ML ONE (14:04)
[2020-03-14 14:50] VITALS: BP 144/86; TEMP 97.6; O2SAT 98
--- NOTE | 2020-03-14 15:00 | RAD REPORT ---
EXAM DESCRIPTION: RAD - Wrist Right 2 View - 03/14/2020 2:51 pm FINDINGS: There was a total of 25 portable C-arm views obtained during fluoroscopic assisted placeme nt of fracture fixation hardware. No suspicious or unexpected finding. Fluoro time was 1.8 minutes.
--- NOTE | 2020-03-15 00:19 | OP ---
Date of Procedure: 03/14/2020 Surgeon: Rashad Ortiz MD Preoperative Diagnosis: Highly displaced intra-articular fracture of the distal radius with 2 intra- articular fragments. Postoperative Diagnosis: Highly displaced intra-articular fracture of the distal radius with 2 intra -articular fragments. Procedure: Open reduction and internal fixation of the distal radius fracture with fixation of 2 int ra-articular fragments. Estimated Blood Loss: Less than 10 cc. Complications: There were no complications. Specimens: No pathology specimen sent. Implant: Acumed 2 plate. Indications For Operation: Ms. Hernandez is an 84-year-old female who has multiple medical problems. She has undergone fixation of a femur fracture recently, but unfortunately after this had fallen inj uring her right upper extremity. She wanted to go without operative intervention and her initial rad iographs, although not generally acceptable as a good position of the radius, did not appear to be co mpletely unreasonable. We discussed with her that open reduction and internal fixation of the distal radius is usually reserved for patients with severe compromise and that this should heal, but did have her come back in 2 weeks to ensure that she had not had further displacement. On retur n, x-rays taken in the cast yesterday demonstrated that this had very significantly and no w basically it appeared more like a dislocation of the wrist than simple fracture. Risks, benefits, and alternatives to open reduction and internal fixation had been discussed with the patient as well as the family. They state they understand things as presented and wished to proceed. Description Of Procedure: The patient was taken to the operating room and placed in supine position. General anesthesia was obtained by staff after attempted MAC. There was a tourniquet placed on the superior right arm. The right upper extremity was then prepped and draped in the usual sterile fash ion. The arm was then elevated, but not exsanguinated. Tourniquet was raised. A standard incision was made for a volar approach of [place], was taken down carefully through the skin, only meticulous he mostasis being maintained using bipolar electrocautery. This leads to the flexor carpi radialis, whi ch was reflected radialward. The sheath was then exploited and the FPL as well as median nerve retra cted ulnarward. This leads down to a very prominent volar spike. The radius itself was actually rodger y deep into the arm; however, the pronator quadratus was divided at its midsubstance and then moved o ff the radius to allow for visualization of the fracture site. The fracture site was cleaned with qu ite a bit of care and effort. Once the fracture site was cleaned, a reduction maneuver including use of a [place] elevator as well as traction and manual pressure then achieved a fairly good reduction. The Acumed 2 plate was then placed distally in the correct position. The bone was extremely weak; ho wever, it was felt that the pegs should hold it and it is flushed with the bone. Following this, ___ screw was then placed, applying appropriate rotation as well as some distraction to bring it out significantly to length. This was then tightened down. The remainder of the screws were then ti ghtened down and the plate appears to be doing very well with a tremendous improvement in the positio n of the wrist. Following this, the wound was irrigated and the skin was closed using interrupted ny yue sutures and the patient was placed in a well-padded sterile dressing as well as sugar-tong splint . She was awakened and taken to the recovery room in good condition. There were no complications. /BERT Voice ID: [id number] Report ID: [id number]
== END 2020-03-14 15:35 | disposition home or self-care (01) ==
LOC: OR 10:32
PROVIDERS: ATTEND Orthopaedic Surgery
PROC: 0PSH04Z Reposition Right Radius with Internal Fixation Device, Open Approach (ICD-10-PCS; principal; 2020-03-14 11:30)
DX: S52.571A Other intraarticular fracture of lower end of right radius, initial encounter for closed fracture (principal); E11.9 Type 2 diabetes mellitus without complications; I10 Essential (primary) hypertension; J44.9 Chronic obstructive pulmonary disease, unspecified; K21.9 Gastro-esophageal reflux disease without esophagitis; Z88.0 Allergy status to penicillin; Z88.6 Allergy status to analgesic agent; Z85.3 Personal history of malignant neoplasm of breast; Z85.118 Personal history of other malignant neoplasm of bronchus and lung; Z86.73 Personal history of transient ischemic attack (TIA), and cerebral infarction without residual deficits; Z90.2 Acquired absence of lung [part of]; Z79.02 Long term (current) use of antithrombotics/antiplatelets
CPT/HCPCS: 82947 ×2; 73100; 25608; J2704 ×2; J2370; J2250; J3010; J1100; J2795; J1170; J0690; J7030 ×2; J2405

== ENCOUNTER 2020-06-12 10:37 | Emergency (ER) | payer OTHER ==
--- OUTSIDE RECORDS SUMMARY | 2020-06-12 10:39 | XMS REPORT | Clinical Summary ---
:1935 Author Organization [facility] Address [address] [place] [address] Care Team Providers Name Role Phone Unavailable [...] ADLs Jack Mantilla MD 12/22/2019 Travel after 06/12/2019 Social History Tobacco Use Types Packs/Day Years [...] Not on file Implants Implanted Type Area Baby Doctor Device Shelf Model / Identifier Expiration Date Ser ial / Lot 4.5 X 74 Locking Screw Right: [employer] [id number] / Implanted: Qty: 1 on 12/23/2019 by Nadeem De Oliveira MD L eg / 4.5 X 80 Locking Screw Right: [employer] [id number] / Implanted: Qty: 1 on 12/23/2019 by Nadeem De Oliveira MD L eg / 8 Hole Right Dital Femur Plate Right: [employer] [id number] / Implanted: Qty: 1 on 12/23/2019 by Nadeem De Oliveira MD L eg / 4.5 X 28 Screw Right: [employer] [id number] / Implanted: Qty: 1 on 12/23/2019 by Nadeem De Oliveira MD L eg / 4.5 X 32 Screw Right: [employer] [id number] / Implanted: Qty: 1 on 12/23/2019 by Nadeem De Oliveira MD L eg / 4.5 X 34 Screw Right: [employer] [id number] / Implanted: Qty: 1 on 12/23/2019 by Nadeem De Oliveira MD L eg / 4.5 X 60 Screw Right: [employer] [id number] / Implanted: Qty: 1 on 12/23/2019 by Nadeem De Oliveira MD L eg / 4.5 X 76 Screw Right: [employer] [id number] / Implanted: Qty: 1 on 12/23/2019 by Nadeem De Oliveira MD L eg / 4.5 X 80 Screw Right: [employer] [id number] / Implanted: Qty: 1 on 12/23/2019 by Atassi, Nadeem Juan, MD L eg / 4.5 X 70 Locking Screw Right: [employer] [id number] / Implanted: Qty: 1 on 12/23/2019 by Nadeem De Oliveira MD L eg / Explanted Type Area Baby Doctor Device Shelf Model / Identifier Expiration Serial / Date Lot Wire Waqar Trcr Pt [id number] - [id number] IMPLANTS Right: [facility] & [id number] / Explanted: Qty: 3 on 12/23/2019 Leg [...] i n the results section . after 06/12/2019 Results EKG-SCANNED (12/28/2019 8:30 AM CDT) Narrative Performed At This result has an attachment that is no t available. POC-Glucose meter (12/27/2019 11:47 AM CDT)Only the most recent of16 results within the time period is included. POC-Glucose Meter 146 (H)Comment: : TESTED 70 - 110 mg/dL [facility] AT [address] NTT[facility], [address]: Shading Painter/Tank Welder ID = [id number] for LEX MCKEON Specimen Blood Performing Organization Address City/State/Zipcode Phone Number [facility] [address] [place] [address] CENTER CBC with platelet count + automated diff (12/27/2019 4:22 AM CDT)Only the most recent of2 resultswithin the time period is included. WBC 8.3 3.5 - 10.5 K/L [facility] RBC 3.77 (L) 3.93 - 5.22 M/L [facility] Hemoglobin 10.4 (L) 11.2 - 15.7 GM/DL [facility] Hematocrit 33.3 (L) 34.1 - 44.9 % [facility] MCV 88.3 79.4 - 94.[address] [facility] MCH 27.6 25.6 - 32.[address] [facility] MCHC 31.2 (L) 32.2 - 35.5 GM/DL [facility] RDW 15.2 (H) 11.7 - 14.4 % [facility] Platelets 301Comment: Discordant 150 - 450 K/CU MM [facility] result .clinical [facility] [address] correlation required. MPV [...] Neutros 6.21 (H) 1.56 - 6.13 K/L [facility] # Lymphs 1.08 (L) 1.18 - 3.74 K/L [facility] # Monos 0.74 (H) 0.24 - 0.36 K/L [facility] # Eos 0.16 0.04 - 0.36 K/L [facility] ER # Baso 0.02 0.01 - 0.08 K/L [facility] CENT ER Immature 1 0 - 1 % [facility] Granulocytes-Relative [facility] Specimen Blood Performing Organization Address City/[facility]/Zipcode Phone Number [address] [address] [place] Vitamin D, 25-Hydroxy (12/26/2019 4:05 AM CDT) Vitamin D 25-Hydroxy 7.0 6.6 - 49.9 ng/mL [facility] Specimen Blood Narrative Performed At Effective 07/13/2017: Reference Range Ch cliff [facility] New: 6.6-49.9 ng/mL Previous: 13.0-47.8 ng/mL Recommended Vitamin D Target Range: 30.0-40.0 ng/mL Shading Painter ID - AJ Álvarez Performing Organization Address [facility] Hospital[facility] Phone Number [address] [address] CENTER Hemoglobin and hematocrit (12/25/2019 4:34 PM CDT) Hemoglobin 9.9 (L) 11.2 - 15.7 GM/DL [facility] Hematocrit 31.2 (L) 34.1 - 44.9 % [facility] Specimen Blood Narrative Performed At Shading Painter ID - [id number] [facility] Performing Organization Address [facility] Hospitalcode Phone Number [address] [address] CENTER CBC (Hemogram only) (12/25/2019 4:35 AM CDT)Only the most recent of2 results within the time period is included. WBC 9.2 3.5 - 10.5 K/L [facility] RBC 3.37 (L) 3.93 - 5.22 M/L [facility] Hemoglobin 9.7 (L) 11.2 - 15.7 GM/DL [facility] Hematocrit 30.3 (L) 34.1 - 44.9 % [facility] MCV 89.9 79.4 - 94.8 fL [facility] MCH 28.8 25.6 - 32.2 pg [facility] MCHC 32.0 (L) 32.2 - 35.5 GM/DL [facility] RDW 15.3 (H) 11.7 - 14.4 % [facility] Platelets 185 150 - 450 K/CU MM [facility] MPV 9.7 9.4 - 12.3 fL [facility] nRBC 0 0 - 0 /100 WBC [facility] Specimen Blood Performing Organization Address City/State/Zipcode Phone Number [facility] [address] [place] [address] CENTER Basic Metabolic Panel (12/25/2019 4:35 AM CDT)Only the most recent of2 results within the time period is included. Sodium 137 136 - 145 meq/L [facility] Potassium 3.8 3.5 - 5.1 meq/L [facility] Chloride 105 98 - 107 meq/L [facility] CO2 23 22 - 29 meq/L [facility] BUN 15 7 - 21 mg/dL [facility] Creatinine 0.84 0.57 - 1.25 mg/dL [facility] Glucose 141 (H) 70 - 105 mg/dL [facility] Calcium 8.7 8.4 - 10.2 mg/dL [facility] EGFR 65Comment: ESTIMATED GFR IS mL/min/1.73 sq m [facility] NOT ACCURATE CREATININE [facility] CENTER CLEARANCE IN PREDICTING GLOMERULAR FILTRATION RATE. ESTIMATED GFR IS NOT APPLICABLE FOR DIALYSIS PATIENTS. Specimen Blood Narrative Performed At Shading Painter ID - AJ Álvarez [facility] Performing Organization Address City/State/[facility] Hospitalcode Phone Number [facility] [address] [place] [address] CENTER TRANSFUSION SERVICE REPORT - SCAN (12/24/2019 5:50 PM CDT)Only the most recent of2 resultswithin the time period is included. Narrative Performed At This result has an attachment that is no t available. Prepare Leuko-Red RBC (12/23/2019 4:14 PM CDT) CROSSMATCH COMPATIBLE SAFETRACE TX Unit ABO O Pos SAFETRACE TX UNIT NUMBER [id number] SAFETRACE TX Status RETURNED FROM ISSUE SAFETRACE TX Blood Bank Product RED BLOOD CELLS SAFETRACE TX PRODUCT CODE [id number] SAFETRACE TX CROSSMATCH COMPATIBLE SAFETRACE TX Unit ABO O Pos SAFETRACE TX UNIT NUMBER [id number] SAFETRACE TX Status RETURNED FROM ISSUE SAFETRACE TX Blood Bank Product RED BLOOD CELLS SAFETRACE TX PRODUCT CODE [id number] SAFETRACE [place] Specimen Other Performing Organization Address City/State/[facility] Hospital[facility] Phone Number SAFETRACE [place] fluoro non-specific [...] MD Report Verified Date/Time:12/23/2019 16:04:47 Reading Location: [facility] C013Y CT Body R eading Room Procedure [...] Verified Date/Time: 12/23/2019 1 6:04:47 Reading Location: [facility] B1 C013Y CT Body R eading Room Performing Organization Address City/[facility]/Zipcode Phone Number [employer] ABORH, manual (12/23/2019 11:32 AM CDT) Factor POS [facility] ABO Grouping O [facility] Specimen Blood Performing Organization Address [facility] Hospitalcode Phone Number [facility] [address] [place], [place] [phone] CT lower extremity without IV contrast right (12/22/2019 10:08 PM CDT) Specimen Narrative Performed At FINAL REPORT [employer] CLINICAL HISTORY: Right femur fracture COMPARISON: None. [...] 366 ms QTC Calculation(Bazett) 459 ms P [place] 49 degrees R [place] 27 degrees T [place] 131 degrees Sinus rhythm with Premature atrial [...] 366 ms QTC Calculation(Bazett) 459 ms P [place] 49 degrees R [place] 27 degrees T [place] 131 degrees Sinus rhythm with Premature atrial compl exes Septal infarct , age undetermined Nonspecific T wave abnormality Abnormal ECG No previous ECGs available Confirmed by MD Mcclure Roberto ([id number]) on 12/23/2019 8:44:02 AM Performing Organization Address [facility] Phone Number GE MUSE Type and screen, automated (12/22/2019 8:54 PM CDT) ABO/RH AUTOMATED (BEAKER) O POSITIVE [facility] Ab Scrn NEGATIVE [facility] Specimen Blood Performing Organization Address [facility] Phone Number [address] [address] Prothrombin time/INR (12/22/2019 8:54 PM CDT) Protime 12.6 11.9 - 14.[address] [facility] INR 1.0 <=5.9 [facility] Specimen Blood Narrative Performed At Effective 02/28/2019: PT Reference Range [facility] Change New: 11.9-14.2Previous: 11.7-14.7 RECOMMENDED COUMADIN/WARFARIN INR THERAPY RANGES STANDARD DOSE: 2.0-3.0Includes: PROPHYLAXIS for venous thrombosis, systemic embolization; TREATMENT for venous thrombosis and/or pulmonary embolus. HIGH RISK: Target INR is 2.5-3.5 for patients wiht mechanical heart valves. Performing Organization Address [facility] Hospital[facility] Phone Number [address] [address] [place] Comprehensive metabolic panel (12/22/2019 8:54 PM CDT) Protein, Total 7.1 6.0 - 8.3 gm/dL [facility] ER Albumin 4.3 3.5 - 5.0 g/dL [facility] Alkaline Phosphatase 134 40 - 150 U/L [facility] Total [...] ER Creatinine 0.95 0.57 - 1.25 mg/dL [facility] ER Glucose 190 (H) 70 - 105 mg/dL [facility] ER Calcium 9.0 8.4 - 10.2 mg/dL [facility] ER AST 15 5 - 34 U/L [facility] ER ALT 16 6 - 55 U/L [facility] MEDICAL [facility] ER EGFR 56Comment: ESTIMATED GFR mL/min/1.73 sq m [facility] IS NOT ACCURATE [facility] CREATININE CLEARANCE IN PREDICTING GLOMERULAR FILTRATION RATE. ESTIMATED GFR IS NOT APPLICABLE FOR DIALYSIS PATIENTS. Specimen Blood Narrative Performed At Shading Painter ID - DB [facility] Performing Organization Address City/State/Zipcode Phone Number [facility] [address] [place] [address] CENTER XR femur 2 views right (12/22/2019 8:00 PM CDT) Specimen Narrative Performed At FINAL REPORT [facility] CLINICAL HISTORY: Trauma and pain COMPARISON: None. [...] 0:35:26 Performing Organization Address City/State/Zipcode Phone Number [facility] XR pelvis 1 or 2 views (12/22/2019 7:49 PM CDT) Specimen Narrative Performed At FINAL REPORT [facility] CLINICAL HISTORY: Trauma and pain COMPARISON: None. [...] Address City/State/Zipcode Phone Number GE RIS after 06/12/2019 Insurance Payer Benefit Plan / Group Subscriber ID Type Phone A ddress [facility] - MEDICARE [employer] MED[employer]ARE HMO xxxxxxxxx MGD CARE Advance Directives For more information, please contact:[address] [phone] Code Status Date Activated Date Inactivated Comments Full Code 12/22/2019 6:36 PM 12/27/2019 6:46 PM This code status was determined by: Patient
--- OUTSIDE RECORDS SUMMARY | 2020-06-12 10:41 | XMS REPORT | Continuity of Care Document ---
:1935 Author Organization [facility] t Address [address] [place] [address] Dr. Ordaz [address] [place] [id number] Care Team Providers Name Role Phone Siva Douglas MD Attending Clinician [phone] Sandy Truong MD Attending Clinician Jose Rafael KENT Attending Clinician Carrie Jorge MD Attending Clinician Juan De Oliveira MD Attending Clinician SIVA DOUGLAS Attending Clinician Unavailable Sandy TRUONG Admitting Clinician Unavailable Payers Payer Name Policy Type Policy Number Effective Date Expiration Date [facility] xxxxxxxxx [facility] MGD [facility] HMO[facility]x Problems Condition Condition Condition Status Onset Resolution Last Treating Co mments Source Name Details Category Date Date Treatment Clinician Date Vitamin D Vitamin D Disease Active [facility] deficiency 12-25 Karyn kes - 00:00: Medical 00 Center History of History of Disease Active [facility] stroke stroke 12-25 [facility] History of Past Illness Condition Condition Condition Status Onset Resolution Last Treating Co mments Source Name Details Category Date Date Treatment Clinician Date Other Other Disease Resolve 2019-12-26 2019-12-26 [facility] [...] insulin Closed Closed Disease Resolve 2019-12-26 2019-12-26 [facility] fracture fracture d 12-21 00:00:00 13:05:51 Karyn tobin - of right of right 00:00: Medica l femur femur 00 Center Displaced Displaced Disease Resolve 2019-12-26 2019-12-26 [facility] supracondy supracondy d 12-21 00:00:00 13:05:53 [facility] [...] Type Date Date Clinician Amoxicil Propensi Active Hives [facility] celina ty to 12-21 [facility] - adverse 00:00: Medical reaction 00 Center s Social History Social Habit Start Date Stop Date Quantity Comments Source History SDOH Alcohol [facility] Std Drinks [facility] History SDOH Alcohol [facility] Binge [facility] Sex Assigned [facility] History SDOH Alcohol 2019-12-22 2019-12-22 1 [facility] - Frequency 00:00:00 00:00:00 [facility] Smoking Status Start Date Stop Date Source Former smoker 2019-12-24 00:00:00 2019-12-24 00:00:00 [facility] Medications Ordered Filled Start Stop Current Ordering Indication Dosage Frequency Signature Comments Components Source Medication Medication Date Date Medication? Clinician (SIG) Name Name ergocalcife 2020- No 46469O Q7D Take [address] rol 01-01- capsule [facility] - (ERGOCALCIF 00:00: 23:59 (50,000 Me dical LUIS ALFREDO) 1,250 00 :00 Units Center mcg (50,000 total) by unit) mouth once capsule a week for 56 days. calcium 2020- No 1{tbl} QD Take 1 [facility] S t carbonate-v 12-26 tablet by Karyn tobin - itamin D3 00:00: 23:59 mouth Medica l (OSCAL-D) 00 :00 daily for Cente r 500 30 days. mg(1,250mg) -200 unit per tablet celecoxib 2019-0 2020- No 100mg Take [address] (CELEBREX) 3-25 03-25 mg by [facility] - 100 MG 14:39: 00:00 mouth Medical capsule 59 :00 every 12 Center (twelve) hours as needed for Pain. acetaminoph 2019-0 Yes 1{tbl} Take [address] en-codeine 3-21 tablet by Mickey s - (TYLENOL 18:27: mouth Medical #3) 300-30 08 every 4 Center mg per (four) tablet hours as needed for Pain. triamterene 2019-0 Yes .5{tbl} QD Take 0.[address] -hydroCHLOR 3-21 tablets by Karyn crista - Othiazide 18:27: mouth Medical (MAXZIDE-25 08 daily. Center ) 37.5-25 mg per tablet simvastatin 2019-0 Yes 20mg QD Take [address] (ZOCOR) 20 3-21 by mouth [facility] - MG tablet 18:25: nightly. Medi kinza 16 Center umeclidiniu 0 Yes 1{puff} QD Inhale [address] m-vilantero 3-21 puff by [facility] - L (ANORO 18:25: mouth via Medi kinza ELLIPTA) 16 inhaler Center 62.5-25 every mcg/actuati morning. on DsDv DULoxetine 2019-0 Yes 30mg QD Take [address] (CYMBALTA) 3-02 by mouth [facility] - 30 MG 00:00: daily TAKE Medica l capsule 00 WITH FOOD. [place] clopidogreL 2019-0 Yes 75mg QD Take [address] (PLAVIX) 75 1- by mouth Luke s - mg tablet 00:00: daily. Medica l 00 Center JARDIANCE 2019-0 Yes 25mg QD Take [address] 25 mg 1-01 by mouth [facility] - tablet 00:00: every Medical 00 morning. [place] omeprazole 2019-0 Yes 40mg QD Take [address] (PRILOSEC) 1- by mouth [facility] - 40 MG 00:00: daily. Medical capsule 00 Center Vital Signs Vital Name Observation Time Observation Value Comments Source Systolic blood 2019-12-27 14:59:00 143 mm[Hg] [facility] Diastolic blood 2019-12-27 14:59:00 80 mm[Hg] [facility] Heart rate 2019-12-27 14:59:00 84 /min [facility] Body temperature 2019-12-27 14:59:00 35.61 Yocasta [facility] Oxygen saturation in 2019-12-27 14:59:00 98 /min [facility] Arterial blood by Medical Ce nter Pulse oximetry Respiratory rate 2019-12-27 11:43:00 17 /min [facility] Body height 2019-12-25 16:00:00 160 cm [facility] Body weight Measured 2019-12-25 16:00:00 79.833 kg [facility] BMI 2019-12-25 16:00:00 31.18 kg/m2 [facility] Procedures Procedure Date / Time Performed Performing Clinician [facility] e REPORT OF PROCEDURE - 2019-12-28 08:30:36 Provider, Default [facility] ENDOSCOPY SCAN Scanning [facility] POCT-GLUCOSE METER 2019-12-27 11:47:00 Jose Rafael [facility] CBC W/PLT COUNT & AUTO 2019-12-27 04:22:00 [facility]SE METER 2019-12-26 22:17:00 [facility] 2019-12-26 17:40:00 [facility] PO[facility]SE METER 2019-12-26 08:13:00 [facility] VITAMIN D, 25-HYDROXY 2019-12-26 04:05:00 Mateo Hernandez [facility] POCT-GLUCOSE METER 2019-12-25 17:51:00 [facility] HEMOGLOBIN AND HEMATOCRIT 2019-12-25 16:34:00 Mateo Hernandez [facility] POCT-GLUCOSE METER 2019-12-25 09:42:00 Jose Rafael, [facility] BASIC METABOLIC PANEL (7) 2019-12-25 04:35:00 Mateo Hernandez [facility] CBC (HEMOGRAM ONLY) 2019-12-25 04:35:00 Mary Mateoalana Valdes [facility] TRANSFUSION SERVICE 2019-12-24 17:50:27 Provider, Default [facility] - SCAN [facility] POCT-GLUCOSE METER 2019-12-24 17:28:00 Jose Rafael, [facility] POCT-GLUCOSE METER 2019-12-24 12:41:00 Jose Rafael, [facility] POCT-GLUCOSE METER 2019-12-24 07:49:00 Jose Rafael, [facility] CBC (HEMOGRAM ONLY) 2019-12-24 03:57:00 Toan Truong [facility] BASIC METABOLIC PANEL (7) 2019-12-24 03:57:00 Toan Truong [facility] POCT-GLUCOSE METER 2019-12-23 21:26:00 Toan Truong [facility] TRANSFUSION SERVICE 2019-12-23 17:50:30 Provider, Default [facility] POCT-GLUCOSE METER 2019-12-23 17:49:00 Toan Truong [facility] PREPARE LEUKO-REDUCED RBC 2019-12-23 16:14:00 Kenny Jorge [facility] I [facility] POCT-GLUCOSE METER 2019-12-23 15:56:00 Toan Truong [facility] FL FLUORO NON-SPECIFIC UP 2019-12-23 15:08:[address] [facility] 1 HOUR [facility] POCT-GLUCOSE METER 2019-12-23 13:05:00 Toan Truong [facility] ORIF,FEMUR 2019-12-23 12:00:00 Nadeem De Oliveira [facility] ABORH, MANUAL 2019-12-23 11:32:00 Issa Karla Kaitlyn [facility] POCT-GLUCOSE METER 2019-12-23 05:38:00 Toan Truong [facility] CT LOWER EXTREMITY 2019-12-22 22:08:00 Nadeem De Oliveira [facility] POCT-GLUCOSE METER 2019-12-22 21:11:00 Toan Truong [facility] ECG 12-LEAD 2019-12-22 21:02:49 Toan Truong [facility] COMPREHENSIVE METABOLIC 2019-12-22 20:54:00 Toan Truong I [facility] PROTHROMBIN TIME/INR 2019-12-22 20:54:00 Toan Truong [facility] TYPE AND SCREEN, 2019-12-22 20:54:00 Nadeem De Oliveira [facility] CBC W/PLT COUNT & AUTO 2019-12-22 20:54:00 Toan Truong [facility] XR FEMUR 2 VIEWS RIGHT 2019-12-22 20:00:00 Nadeem De Oliveira [facility] XR PELVIS 1 OR 2 VIEWS 2019-12-22 19:49:00 Nadeem De Oliveira [facility] POCT-GLUCOSE METER 2019-12-22 18:14:00 Toan Truong [facility] Results Test Description Test Time Test Comments Results Result Comments Source POC-Glucose meter 2019-12-27 12:41:00 Test Item Value Reference Range Interpretation Comme nts POC-Glucose Meter (test code = 146 mg/dL 70-110 H : TESTED AT [facility] [address] [place], [place] [address]) [facility], 770 30: Hydraulic Jack Adjuster/Techni sagar ID = [id number] for EDSON MCKEON Lab Interpretation (test code = Abnormal 57818-8) [facility] [id number] 12:41:00 Test Item Value Reference Range Interpretation Comments POC-GLUCOSE METER 146 mg/dL 70-110 H : TESTED A T [facility] 6720 (BEAKER) (test code = [place], 1538) [address]: Hydraulic Jack Adjuster/Techni sagar ID = [id number] for LEX ORTIZ CBC with platelet count + automated [id number] 05:04:00 Test Item Value Reference Range Interpretation [...] (test code = 9.3 fL 9.4-12.3 L 56954-6) nRBC (test code = 413) 0 0- [...] 2801) Lab Interpretation (test Abnormal code = 62023-7) [facility] W/PLT COUNT & AUTO [id number] 05:04:00 Test Item Value Reference Range Interpretation [...] PERCENT (BEAKER) (test code = 2801) POCT-GLUCOSE [id number] 22:28:00 Test Item Value Reference Range Interpretation Comments POC-GLUCOSE METER 182 mg/dL 70-110 H : TESTED A T [facility] 6720 (BEAKER) (test code = [facility], 1538) [address]: Hydraulic Jack Adjuster/Techni sagar ID = [id number] for SURESH PAUL POCT-GLUCOSE [id number] 17:52:00 Test Item Value Reference Range Interpretation Comments POC-GLUCOSE METER 177 mg/dL 70-110 H : TESTED A T [facility] 6720 (BEAKER) (test code = [facility], 1538) 79756: Hydraulic Jack Adjuster/Techni sagar ID = [id number] for PRABHAKAR ORDOÑEZ POCT-GLUCOSE [id number] 08:26:00 Test Item Value Reference Range Interpretation Comments POC-GLUCOSE METER 124 mg/dL 70-110 H : TESTED A T [facility] 6720 (BEAKER) (test code = [facility], 1538) 34517: Hydraulic Jack Adjuster/Techni sagar ID = [id number] for LORNE KEATING Vitamin D, [id number] 05:15:00 Test Item Value Reference Range Interpretation Comments Vitamin D 25-Hydroxy 7.0 ng/mL 6.6-49.9 (test code = 2764) MAIN (test code = MAIN) Effective 07/13/2017: Reference Range ChangeNew: 6.6-49.9 ng/mL Previous: 13.0-47.8 ng/mL Recommended Vitamin D Target Range: 30.0-40.0 ng/mLOperator ID - AJ Álvarez Lab Interpretation (test Normal code = 08039-0) [facility], [id number] 05:15:00 Test Item Value Reference Range Interpretation Comments VITAMIN D 25-OH (BEAKER) (test code 7.0 ng/mL 6.6-49.9 = 2764) Effective 07/13/2017: Reference Range ChangeNew: 6.6-49.9 ng/mL Previous: 13.0-47.8 ng/mLRecommended Vitamin D Target Range: 30.0-40.0 ng/mLOperator ID - AJ MPOCT-GLUCOSE [id number] 18:08:00 Test Item Value Reference Range Interpretation Comments POC-GLUCOSE METER 130 mg/dL 70-110 H : TESTED A T [facility] 6720 (BEAKER) (test code = UNIQUE Sarkar [facility], 1538) [address]: Hydraulic Jack Adjuster/Techni sagar ID = [id number] for LORNE KEATING Hemoglobin and [id number] 16:49:00 Test Item Value Reference Range Interpretation Comments Hemoglobin (test code = 9.9 11.2- 15.7 GM/DL L 786-4) Hematocrit (test code = 31.2 % 34.1-44.9 L 4544-3) MAIN (test code = MAIN) Hydraulic Jack Adjuster ID - [id number] Lab Interpretation (test Abnormal code = 85245-2) [facility]MO[facility] AND [id number] 16:49:00 Test Item Value Reference Range Interpretation Comments HEMOGLOBIN (BEAKER) (test code = 9.9 GM/DL 11.2-15.7 L 410) HEMATOCRIT (BEAKER) (test code = 31.2 % 34.1-44.9 L 411) Hydraulic Jack Adjuster ID - [id number]-GLUCOSE [id number] 09:56:00 Test Item Value Reference Range Interpretation Comments POC-GLUCOSE METER 130 mg/dL 70-110 H : TESTED A T [facility] 6720 (BEAKER) (test code = UNIQUE Sarkar [facility], 1538) [address]: Hydraulic Jack Adjuster/Techni sagar ID = [id number] for MAGUI DAVIDSON Basic Metabolic [id number] 05:34:00 Test Item Value Reference Range Interpretation Comments Sodium (test code = 137 meq/L 774-348 7368-2) Potassium (test code = 3.8 meq/L 3.5-5.1 2823-3) Chloride (test code = 105 meq/L 98-107 2075-0) CO2 (test code = 23 meq/L 22-29 2028-9) BUN (test code = 15 mg/dL 7-21 3094-0) Creatinine (test code 0.84 mg/dL 0.57-1.25 = 2160-0) Glucose (test code = 141 mg/dL 70-105 H 2345-7) Calcium (test code = 8.7 mg/dL 8.4-10.2 19630-2) EGFR (test code = 65 mL/min/1.73 [place] [address]-4) NOT ACCURATE CREATININE CLEARANCE IN PREDICTING GLOMERULAR FILTRATION RATE . ESTIMATED GFR I S NOT APPLICABLE FOR DIALYSIS PATIENTS. MAIN (test code = MAIN) Hydraulic Jack Adjuster ID - AJ M Lab Interpretation Abnormal (test code = 10245-5) [facility] METABOLIC [id number] 05:34:00 Test Item Value Reference Range Interpretation [...] S NOT APPLICABLE FOR DIALYSIS PATIEN TS. Hydraulic Jack Adjuster ID - AJ [id number] (Hemogram only)2019-12-25 05:09:00 [...] 450 K/CU MM MPV (test code = 52881-6) 9.7 fL 9.4-12.3 nRBC (test code = 413) 0 0- 0 /100 WBC Lab Interpretation (test code = Abnormal 50152-6) [facility] (HEMOGRAM ONLY)2019-12-25 05:09:00 Test Item Value [...] 0-0 (BEAKER) (test code = 413) POCT-GLUCOSE [id number] 17:41:00 Test Item Value Reference Range Interpretation Comments POC-GLUCOSE METER 185 mg/dL 70-110 H : TESTED A T [facility] 6720 (BEAKER) (test code = [facility], 1538) 08451: Hydraulic Jack Adjuster/Techni sagar ID = [id number] for DA VIS, KEYAIRA POCT-GLUCOSE [id number] 12:53:00 Test Item Value Reference Range Interpretation Comments POC-GLUCOSE METER 135 mg/dL 70-110 H : TESTED A T [facility] 6720 (BEAKER) (test code = [facility], 1538) 09777: Hydraulic Jack Adjuster/Techni sagar ID = [id number] for DA VIS, KEYAIRA POCT-GLUCOSE [id number] 08:24:00 Test Item Value Reference Range Interpretation Comments POC-GLUCOSE METER 147 mg/dL 70-110 H : TESTED A T [facility] 6720 (BEAKER) (test code = [facility], 1538) 30589: Hydraulic Jack Adjuster/Techni sagar ID = [id number] for DA VIS, KEYAIRA BASIC METABOLIC [id number] 04:44:00 Test Item Value Reference Range Interpretation [...] S NOT APPLICABLE FOR DIALYSIS PATIEN TS. Hydraulic Jack Adjuster ID - PIAYA LCBC (HEMOGRAM ONLY)2019-12-24 04:17:00 [...] 0-0 (BEAKER) (test code = 413) POCT-GLUCOSE [id number] 21:38:00 Test Item Value Reference Range Interpretation Comments POC-GLUCOSE METER 131 mg/dL 70-110 H : TESTED A T [facility] 6720 (BEAKER) (test code [facility], = 1538) 24390: Hydraulic Jack Adjuster/Techni sagar ID = [id number] for ERICK LOGAN POCT-GLUCOSE [id number] 18:00:00 Test Item Value Reference Range Interpretation Comments POC-GLUCOSE METER 133 mg/dL 70-110 H : TESTED A T [facility] 6720 (BEAKER) (test [facility] = [facility], 1538) 94[address]: Hydraulic Jack Adjuster/Techni sagar ID = [id number] for CHRISTIANA COLEMAN Prepare Leuko-Red [id number] 16:14:00 Test Item Value Reference Range Interpretation Comments CROSSMATCH (test code = COMPATIBLE 3616) Unit ABO (test code = O Pos 9059024) UNIT NUMBER (test code = [id number] 934-0) Status (test code = RETURNED FROM ISSUE 5997279) Blood Bank Product (test RED BLOOD CELLS code = 2263) PRODUCT CODE (test code = P6199M98 933-2) [facility] [id number] 16:08:00 Test Item Value Reference Range Interpretation Comments POC-GLUCOSE METER 128 mg/dL 70-110 H : TESTED A T [facility] 6720 (BEAKER) (test code = UNIQUE Sarkar [facility], 1538) [address]: Hydraulic Jack Adjuster/Techni sagar ID = [id number] for Anne-Andres n, Margaret [place], FLUORO, NON-SPECIFIC, UP TO 1 [id number] 16:04:00Reason for exam:- >femur fxFINAL REPORT A fluoroscopic unit was utilized for a procedure performed in the operating room. No interpretation was requested. Please refer to the operative report regarding findings. Please refer to PACS for patient radiation dose information. Signed: Oralia Garcia Verified Date/Time: 12/23/2019 16:04:47 Reading Location: [facility] C013Y CT Body Reading Room [place] fluoro non-specific up to 1 [id number] 16:04:00Interface, External Ris In - 12/23/2019 4:07 PM CDTFINAL REPORT A fluoroscopic unit was utilized for a procedure performed in the operating room. No interpretation was requested. Please refer to the operative report regarding findings. Please refer to PACS for patient radiationdose information. Signed: Oralia Garcia Verified Date/Time: 12/23/2019 16:04:47 Reading Location: [facility] B1 C013Y CT Body Reading Room [facility] 2019-12-23 13:17:00 Test Item Value Reference Range Interpretation Comments POC-GLUCOSE METER 132 mg/dL 70-110 H : TESTED A T [facility] 6720 (BEAKER) (test code = UNIQUE Sarkar [facility], 1538) 10391: Hydraulic Jack Adjuster/Techni sagar ID = [id number] for JAC SAXENA, [id number] 11:50:00 Test Item Value Reference Range Interpretation Comments Rh Factor (test code = 2589) POS ABO Grouping (test code = 2588) [facility] [id number] 08:44:06Interface, External Ris In - 12/23/2019 8:44 AM CDTVentricular Rate 95 BPMAtrial Rate 95 BPMP-R Interval 160 msQRS Duration 90 msQ-T Interval 366 msQTC Calculation(Bazett) 459 msP [place] 49 degreesR [place] 27 degreesT [place] 131 degreesSinus rhythm with Premature atrial complexesSeptal infarct , age undeterminedNonspecific T wave abnormalityAbnormal ECGNo previous ECGs availableConfirmed by MD Mcclure Roberto ([id number]) on 12/23/2019 8:44:02 [facility] [id number] 05:50:00 Test Item Value Reference Range Interpretation Comments POC-GLUCOSE METER 130 mg/dL 70-110 H : TESTED A T [facility] 6720 (BEAKER) (test code = UNIQUE Sarkar [facility], 1538) 23868: Hydraulic Jack Adjuster/Techni sagar ID = [id number] for Cynthia Varner CT, EXTREMITY, LOWER WITHOUT CONTRAST, [id number] 23:04:00FINAL REPORT CLINICAL HISTORY: Right femur fracture [...] 23:04:49 CT lower extremity without IV contrast [id number] 23:04:00Interface, External Ris In - 12/22/2019 11:08 [...] Gerard Rich MDReport Verified Date/Time: 12/22/2019 23:04:49 [facility] and screen, [id number] 21:38:00 Test Item Value Reference Range Interpretation Comments ABO/RH AUTOMATED (BEAKER) (test O POSITIVE code = 2260) Ab Scrn (test code = 890-4) NEGATIVE [facility] [id number] 21:31:00 Test Item Value Reference Range Interpretation Comments Protein, Total (test 7.1 6.0- 8.3 gm/dL code = 2885-2) Albumin (test code = 4.3 g/dL 3.5-5 11828-7) Alkaline Phosphatase 134 U/L 40-150 (test code = 6768-6) Total Bilirubin (test 1.3 mg/dL 0.2-1.2 H code = 1974-2) Sodium (test code = 138 meq/L 203-995 1843-2) Potassium (test code = 4.3 meq/L 3.5-5.1 2823-3) Chloride (test code = 104 meq/L 98-107 5-0) CO2 (test code = 25 meq/L 22-29 8-9) BUN (test code = 19 mg/dL 7-21 3094-0) Creatinine (test code 0.95 mg/dL 0.57-1.25 = 2160-0) Glucose (test code = 190 mg/dL 70-105 H 2345-7) Calcium (test code = 9.0 mg/dL 8.4-10.2 47796-8) AST (test code = 15 U/L 5-34 1920-8) ALT (test code = 16 U/L 6-55 1742-6) EGFR (test code = 56 mL/min/1.[place] [address]-1) NOT ACCURATE CREATININE CLEARANCE IN PREDICTING GLOMERULAR FILTRATION RATE . ESTIMATED GFR I S NOT APPLICABLE FOR DIALYSIS PATIENTS. MAIN (test code = MAIN) Hydraulic Jack Adjuster ID - DB Lab Interpretation Abnormal (test code = 54661-3) [facility]PRE[facility] METABOLIC [id number] 21:31:00 Test Item Value Reference Range Interpretation [...] S NOT APPLICABLE FOR DIALYSIS PATIEN TS. Hydraulic Jack Adjuster ID - DBPOCT-GLUCOSE [id number] 21:25:00 Test Item Value Reference Range Interpretation Comments POC-GLUCOSE METER 162 mg/dL 70-110 H : TESTED A T [facility] 6720 (BEAKER) (test code = [place], 1538) [address]: Hydraulic Jack Adjuster/Techni saagr ID = [id number] for PATRICK MALDONADO Prothrombin time/[id number] 21:20:00 Test Item Value Reference Range Interpretation [...] valves. Lab Interpretation Normal (test code = 07873-5) [facility]ysPROTHROMBIN TIME/[id number] 21:20:00 Test Item Value Reference Range Interpretation [...] mechanical heart valves.CBC W/PLT COUNT & AUTO [id number] 21:17:00 Test Item Value Reference Range Interpretation [...] = 2801) RAD, FEMUR, MIN. 2 VIEWS, [id number] 20:35:00Reason for exam:->right femur fractureShould this be [...] 12/22/2019 08:35 PMRAD, PELVIS, 1 OR 2 [id number] 20:35:00Reason for exam:->fall with right femur fractureShould [...] of the distal right femur. Signed: [facility] Verified Date/Time: 12/22/2019 20:35:26 XR femur 2 views [id number] 20:35:00Interface, External Ris In - 12/22/2019 8:38 [...] of the distal right femur. Signed: [facility] Verified Date/Time: 12/22/2019 20:35:26 [facility] CampusXR pelvis 1 or 2 [id number] 20:35:00Interface, External Ris In - 12/22/2019 8:38 [...] of the distal right femur. Signed: Gerard Richort Verified Date/Time: 12/22/2019 20:35:26 [facility] [id number] 18:26:00 Test Item Value Reference Range Interpretation Comments POC-GLUCOSE METER 175 mg/dL 70-110 H : TESTED A T [facility] 6720 (Tengrade) (test code = [place], 1538) [address]: Hydraulic Jack Adjuster/Techni sagar ID = [id number] for Alisson MILLIGAN
[2020-06-12] MEDS ORDERED: MEPERIDINE HCL 50 MG/ML ONE (11:55)
--- NOTE | 2020-06-12 11:59 | RAD REPORT ---
EXAM DESCRIPTION: CT - Stone Protocol - 06/12/2020 11:27 am CLINICAL HISTORY: Abdominal pain. Back pain COMPARISON: None. TECHNIQUE: Computed axial tomography of the abdomen pelvis was obtained without oral or IV contrast. Lack of IV and oral contrast limits evaluation of solid organs, bowel, and vessels. Coronal reformat edwina images were obtained and reviewed. All CT scans are performed using dose optimization technique as appropriate and may include automated exposure control or mA/KV adjustment according to patient size. FINDINGS: A renal calculus is not seen. An ureteral calculus is not noted. A bladder calculus is not present. Renal arterial calcifications are present. Calcifications involve the aorta, iliac and femoral arteries. The liver is mildly enlarged. Calcification of the gallbladder wall is seen. The gallbladder is mildl y distended Spleen, pancreas and adrenals appear grossly normal. There is no evidence of diverticulitis. Postsurgical changes involve the right colon. A moderate amou nt of stool is present within the right colon Slight anterior subluxation L4 on L5. Small umbilical hernia IMPRESSION: Negative for a genitourinary calculus Mild gallbladder distention Moderate amount of stool within the colon
[2020-06-12 12:04] LABS: Absolute Lymphocytes (CBC) 0.6 K/uL (0.7-4.9); Basophils % 0.3 % (0-1.3); Hematocrit 41.7 % (36.0-45.0); Lymphocytes % 8.4 % (15.3-44.8); MPV 7.6 fL (7.6-11.3)
[2020-06-12] MEDS ORDERED: ONDANSETRON 4 MG/2 ML VIAL ONE (12:42)
--- NOTE | 2020-06-12 13:09 | RAD REPORT ---
EXAM DESCRIPTION: RAD - Lumbar Spine 3 Views - 06/12/2020 12:48 pm CLINICAL HISTORY: PAIN COMPARISON: LUMBAR SPINE 3 VIEWS dated 04/21/2015; Stone Protocol dated 06/12/2020 FINDINGS: A three-view lumbar spine examination was performed. Lumbar bodies are normal in height. Minimal degenerative left convex curvature seen with the apex at L3. There is a minimal anterior and left lateral subluxation of L4 relative to L5. Patient has severe facet joint degenerative change at the lower 2 lumbar levels. No fracture or acute bony process seen . No pathologic bone process. L2-3 disc space narrowing and endplate spurring changes are present min imally progressive from 2015. SI joint degenerative changes are present. No pars defects identified. Dense nonaneurysmal aortoiliac calcifications. IMPRESSION: Osteopenic and degenerative bony changes are present with no fracture or acute finding s een. Facet degenerative changes advanced at the lower 2 levels but only mildly progressive from 2015. L2-3 degenerative disc disease present only minimally progressive from 2015.
[2020-06-12 13:31] LABS: Urine RBC NONE SEEN /HPF (NONE SEEN)
[2020-06-12 13:32] LABS: Urine Bacteria NONE SEEN /HPF (<20); Urine Culture Reflex Order NOT NEEDED
[2020-06-12 13:32] LABS: Urine Blood NEGATIVE (NEG); Urine Glucose 2+ (NEG); Urine Protein NEGATIVE (NEG); Urine pH 5.5 (5.0-7.0)
--- NOTE | 2020-06-12 13:39 | EDPHYS ---
Physician Documentation [facility] Name: Yang Hernandez Age: 84 yrs Sex: Female : 1935 Arrival Date: 06/12/2020 Time: 10:44 Bed 13 Private MD: ED Physician Allan Hess HPI: 06/12 11:33 This 84 yrs old Female presents to ER via EMS with complaints of Back Pain. rn 11:33 The patient presents with pain that is acute. The symptoms are located in the low back. rn Onset: The symptoms/episode began/occurred 1 week(s) ago. The pain does not radiate. Associated signs and symptoms: The patient has no apparent associated signs or symptoms, Pertinent negatives: abdominal pain, chest pain, fever, hematuria, incontinence, nausea, numbness, tingling, urinary retention, vomiting, weakness. Modifying factors: The patient symptoms are alleviated by remaining still, the patient symptoms are aggravated by any movement. Severity of symptoms: At their worst the symptoms were moderate, in the emergency department the symptoms are unchanged. The patient has not experienced similar symptoms in the past. Reports chronic back problems, but for last week has had worsening pain. No injury. Reports seen by pcp yesterday, told "was old age". No abd pain/chest pain/syncope. Hurts to move and walk. . Historical: - Allergies: 11:10 Trimox; bp 11:10 Tylox; bp - PMHx: 11:10 COPD; Depression; Diabetes - NIDDM; GERD; High Cholesterol; Hypertension; Lung Cancer; bp - Immunization history:: Adult Immunizations up to date. - Social history:: Smoking status: unknown. - Family history:: not pertinent. - Hospitalizations: : No recent hospitalization is reported. ROS: 11:35 Constitutional: Negative for fever, chills, and weight loss, Eyes: Negative for injury, rn pain, redness, and discharge, Cardiovascular: Negative for chest pain, palpitations, and edema, Respiratory: Negative for shortness of breath, cough, wheezing, and pleuritic chest pain, Abdomen/GI: Negative for abdominal pain, nausea, vomiting, diarrhea, and constipation, Back: + low back pain MS/Extremity: Negative for injury and deformity, Skin: Negative for injury, rash, and discoloration, Neuro: Negative for headache, weakness, numbness, tingling, and seizure. Exam: 11:35 Constitutional: This is a well developed, well nourished patient who is awake, alert, rn and in no acute distress. Cardiovascular: Regular rate and rhythm. No pulse deficits. Respiratory: No increased work of breathing, no retractions or nasal flaring. Abdomen/GI: soft, non-tender Back: No spinal tenderness. No costovertebral tenderness. Skin: Warm, dry with normal turgor. Normal color with no rashes, no lesions, and no evidence of cellulitis. MS/ Extremity: Pulses equal, no cyanosis. Neurovascular intact. Full, normal range of motion. Equal circumference. Neuro: Awake and alert, GCS 15, oriented to person, place, time, and situation. Cranial nerves II-XII grossly intact. Motor strength 5/5 in all extremities. Sensory grossly intact. Vital Signs: 10:45 BP 158 / 68; Pulse 85; Resp 16; Temp 98; Pulse Ox 94% ; bp 12:00 BP 131 / 74; Pulse 83; Resp 16; Pulse Ox 97% ; bp 13:00 BP 153 / 84; Pulse 81; Resp 16; Pulse Ox 97% ; bp 14:00 BP 133 / 74; Pulse 63; Resp 16; Temp 97.8; Pulse Ox 97% ; bp MDM: 10:50 Patient medically screened. rn 13:36 Differential diagnosis: arthritis, chronic back pain, Fatigue Osteoarthritis sprain, rn Ureterolithiasis vertebral fracture. Data reviewed: vital signs, nurses notes, lab test result(s), radiologic studies, CT scan, plain films, and as a result, I will discharge patient. Counseling: I had a detailed discussion with the patient and/or guardian regarding: the historical points, exam findings, and any diagnostic results supporting the discharge/admit diagnosis, lab results, radiology results, the need for outpatient follow up, to return to the emergency department if symptoms worsen or persist or if there are any questions or concerns that arise at home. Response to treatment: the patient's symptoms have mildly improved after treatment, and as a result, I will discharge patient. Special discussion: I discussed with the patient/guardian in detail that at this point there is no indication for admission to the hospital. It is understood, however, that if the symptoms persist or worsen the patient needs to return immediately for re-evaluation. ED course: No acute findings on w/u, ct abd lumbar xrays show chronic degenerative disease with mild subluxation, will dc home with conservative therapy and pcp f/u. Declines steroids and/or muscle relaxers, states cannot tolerate them, and has norco and tylenol with codeine at home. Advised to take miralax and plenty of lfuids with pain meds to avoid further constipation.. 06/12 11:08 Order name: CBC with Diff; Complete Time: 12:19 rn 06/12 11:08 Order name: Basic Metabolic Panel; Complete Time: 12:19 rn 06/12 11:08 Order name: CT Stone Protocol; Complete Time: 12:19 rn 06/12 11:08 Order name: Urine Microscopic Only rn 06/12 11:08 Order name: Lipase; Complete Time: 12:19 rn 06/12 13:28 Order name: Urine Dipstick--Ancillary (enter results) bd 06/12 11:08 Order name: XRAY Lumbar Spine (3 Views); Complete Time: 13:20 rn 06/12 11:08 Order name: Urine Dipstick-Ancillary (obtain specimen); Complete Time: 13:25 rn 06/12 11:08 Order name: IV Start; Complete Time: 11:52 rn Administered Medications: 11:50 Drug: Demerol - Meperidine 12.5 mg Route: IVP; Site: left forearm; bp 12:11 Follow up: Response: Pain is decreased bp 12:30 Drug: Zofran (Ondansetron) 4 mg Route: IVP; Site: left antecubital; jl7 13:25 Follow up: Response: Nausea is decreased bp Disposition: 06/12/20 13:38 Discharged to Home. Impression: Low back pain, Constipation, unspecified. - Condition is Stable. - Discharge Instructions: Back Pain, Adult, Constipation, Adult, Musculoskeletal Pain. - Medication Reconciliation Form, Thank You Letter, Antibiotic Education, Prescription Opioid Use form. - Follow up: Private Physician; When: As needed; Reason: Recheck today's complaints, Re-evaluation by your physician. - Problem is an ongoing problem. - Symptoms have improved. Signatures: Dispatcher [employer] Yenny Espinosa RN RN iw Allan Hess MD MD rn Leal, Jahala, RN RN jl7 Marisa, Alin, RN RN bp Corrections: (The following items were deleted from the chart) 11:36 11:33 Reports chronic back problems, but for last week has had worsening pain. No rn injury.. rn 14:51 13:38 06/12/2020 13:38 Discharged to Home. Impression: Low back pain; Constipation, iw unspecified. Condition is Stable. Forms are Medication Reconciliation Form, Thank You Letter, Antibiotic Education, Prescription Opioid Use. Follow up: Private Physician; When: As needed; Reason: Recheck today's complaints, Re-evaluation by your physician. Problem is an ongoing problem. Symptoms have improved. rn
--- NOTE | 2020-06-12 13:39 | ER ---
Nurse's Notes [facility] Name: Yang Hernandez Age: 84 yrs Sex: Female : 1935 Arrival Date: 06/12/2020 Time: 10:44 Bed 13 Private MD: Diagnosis: Low back pain;Constipation, unspecified Presentation: 06/12 10:45 Chief complaint: EMS states: L LUMBAR PAIN RADIATING LLE. Coronavirus screen: At this bp time, the client does not indicate any symptoms associated with coronavirus-19. Ebola Screen: No symptoms or risks identified at this time. Initial Sepsis Screen: Does the patient meet any 2 criteria? No. Patient's initial sepsis screen is negative. Does the patient have a suspected source of infection? No. Patient's initial sepsis screen is negative. Risk Assessment: Do you want to hurt yourself or someone else? Patient reports no desire to harm self or others. Onset of symptoms is unknown. 10:45 Method Of Arrival: EMS: [facility] bp 10:45 Acuity: BALTAZAR 3 bp Triage Assessment: 10:45 General: Appears in no apparent distress. comfortable, Behavior is cooperative, bp appropriate for age, anxious. Pain: Complains of pain in back. EENT: No deficits noted. Neuro: No deficits noted. Cardiovascular: No deficits noted. Respiratory: No deficits noted. GI: No signs and/or symptoms were reported involving the gastrointestinal system. : No signs and/or symptoms were reported regarding the genitourinary system. Derm: No deficits noted. Musculoskeletal: Circulation, motion, and sensation intact. Historical: - Allergies: 11:10 Trimox; bp 11:10 Tylox; bp - PMHx: 11:10 COPD; Depression; Diabetes - NIDDM; GERD; High Cholesterol; Hypertension; Lung Cancer; bp - Immunization history:: Adult Immunizations up to date. - Social history:: Smoking status: unknown. - Family history:: not pertinent. - Hospitalizations: : No recent hospitalization is reported. Screenin:45 Abuse screen: Denies threats or abuse. Denies injuries from another. Nutritional bp screening: No deficits noted. Tuberculosis screening: No symptoms or risk factors identified. Fall Risk None identified. Assessment: 10:45 General: SEE TRIAGE NOTE. Neuro: Level of Consciousness is awake, alert, obeys bp commands, Oriented to person, place, time, situation, Appropriate for age. Cardiovascular: No deficits noted. Respiratory: No deficits noted. GI: No signs and/or symptoms were reported involving the gastrointestinal system. : No signs and/or symptoms were reported regarding the genitourinary system. EENT: No deficits noted. Derm: No deficits noted. Musculoskeletal: No deficits noted. 12:00 Reassessment: PT RETURNED FROM CT. UOP PENDING. bp 12:25 Reassessment: Pt c/o nausea, ERD notified, see MAR for orders. jl7 13:21 Reassessment: ALL CURRENT ORDERS COMPLETED, VS STABLE. bp 14:00 Reassessment: D/C ON HOLD FOR TRANSPORT ARRIVAL. bp Vital Signs: 10:45 BP 158 / 68; Pulse 85; Resp 16; Temp 98; Pulse Ox 94% ; bp 12:00 BP 131 / 74; Pulse 83; Resp 16; Pulse Ox 97% ; bp 13:00 BP 153 / 84; Pulse 81; Resp 16; Pulse Ox 97% ; bp 14:00 BP 133 / 74; Pulse 63; Resp 16; Temp 97.8; Pulse Ox 97% ; bp ED Course: 10:44 Patient arrived in ED. bp 10:45 Arm band placed on. bp 10:45 Patient has correct armband on for positive identification. Bed in low position. Call bp light in reach. Side rails up X2. 10:50 Allan Hess MD is Attending Physician. rn 11:06 Alin Cunningham, NGOZI is Primary Nurse. bp 11:08 Triage completed. bp 11:27 CT Stone Protocol In Process Unspecified. EDMS 11:50 Inserted saline lock: 20 gauge in left forearm, using aseptic technique. Blood bp collected. 12:45 XRAY Lumbar Spine (3 Views) In Process Unspecified. EDMS 13:45 IV discontinued, intact, bleeding controlled, No redness/swelling at site. Pressure bp dressing applied. 14:13 No provider procedures requiring assistance completed. bp Administered Medications: 11:50 Drug: Demerol - Meperidine 12.5 mg Route: IVP; Site: left forearm; bp 12:11 Follow up: Response: Pain is decreased bp 12:30 Drug: Zofran (Ondansetron) 4 mg Route: IVP; Site: left antecubital; jl7 13:25 Follow up: Response: Nausea is decreased bp Outcome: 13:38 Discharge ordered by . rn 14:13 Discharged to home via wheelchair, with family. bp 14:13 Condition: stable 14:13 Discharge instructions given to patient, Instructed on discharge instructions, follow up and referral plans. Demonstrated understanding of instructions, follow-up care. 14:51 Patient left the ED. iw Signatures: Dispatcher [employer] EDYenny Arrieta RN RN iw Allan Hess MD MD rn Leal, Jahala, RN RN jl7 Alin Cunningham RN RN bp Corrections: (The following items were deleted from the chart) 12:11 12:08 BP 131 / 74; Pulse 83bpm; Resp 16bpm; Pulse Ox 97%; bp bp 12:37 12:36 Zofran (Ondansetron) 4 mg IVP in left antecubital jl7 jl7
[2020-06-12 15:08] VITALS: O2SAT 97
[2020-06-12 15:11] VITALS: BP 133/74; TEMP 97.8
== END 2020-06-12 14:51 | disposition home or self-care (01) ==
LOC: ER 10:37
DX: K59.00 Constipation, unspecified (principal); I10 Essential (primary) hypertension; Z85.118 Personal history of other malignant neoplasm of bronchus and lung; Z88.6 Allergy status to analgesic agent
CPT/HCPCS: 85025; 80048; 36415; 83690; 76377; 74176; 72100; 99284; J2175; J2405; 81003; 81015

== ENCOUNTER 2020-12-25 12:30 | Day surgery (SDC) | payer OTHER ==
--- NOTE | 2020-12-23 12:54 | RAD REPORT ---
EXAM DESCRIPTION: RAD - Chest Pa And Lat (2 Views) - 12/23/2020 12:43 pm CLINICAL HISTORY: abd. angiogram with r/o Chest pain. COMPARISON: Chest Single View dated 12/22/2019; Chest Pa And Lat (2 Views) dated 06/19/2018; CHEST PA AND LAT 2 VIEW dated 05/03/2015 FINDINGS: The lungs are mildly emphysematous but clear. Small left pleural effusion. The heart is mi ldly prominent in size. No displaced fractures.
[2020-12-23 13:14] LABS: Absolute Lymphocytes (CBC) 1.6 K/uL (0.7-4.9); Basophils % 0.5 % (0-1.3); Hematocrit 47.2 % (36.0-45.0); Lymphocytes % 18.7 % (15.3-44.8); MPV 7.6 fL (7.6-11.3); RBC Red Blood Cell Count 5.63 M/uL (3.86-4.86)
[2020-12-23 13:17] LABS: Protime INR 0.93
--- NOTE | 2020-12-25 07:22 | EKG ---
Test Date: 2020-12-23 Test Time: 11:15:18 Contact Lens Edge Buffer: MEASUREMENT RESULTS: Intervals: Rate: 78 WY: 156 QRSD: 96 QT: 390 QTc: 444 [place]: P: 55 W[place]: 156 QRS: 23 T: 61 INTERPRETIVE STATEMENTS: Normal sinus rhythm Septal infarct, age undetermined Abnormal ECG Compared to ECG 12/22/2019 14:15:22 No significant changes Electronically Signed On 12-25-20 07:19:06 CDT by Zay Melendrez
[2020-12-25] MEDS ORDERED: NA CHLORIDE 0.9% 500 ML ONE (12:55)
[2020-12-25] MEDS ORDERED: MIDAZOLAM HCL 2 MG/2 ML INJ ONE (16:14)
[2020-12-25] MEDS ORDERED: CLOPIDOGREL 75 MG TABLET ONE (16:14)
[2020-12-25] MEDS ORDERED: HEPARIN 5000 UNIT/ML 1 ML VIAL ONE (16:14)
[2020-12-25] MEDS ORDERED: FENTANYL CITR 100 MCG/2 ML ONE ×2 (16:15→17:51)
[2020-12-25] MEDS ORDERED: ATROPINE SULF 1 MG/10 ML SYR IV ONE (16:15)
[2020-12-25] MEDS ORDERED: VERAPAMIL HCL 10 MG/4 ML VIAL IV ONE (16:15)
[2020-12-25] MEDS ORDERED: LIDOCAINE 1% 20 ML MDV ONE (16:21)
[2020-12-25] MEDS ORDERED: HEPA 1000U/500MLS 2,000 UNIT/1,000 ML BAG IV ONE (16:21)
[2020-12-25] MEDS ORDERED: HEPA 1000U/500MLS 1,000 UNIT/500 ML BAG IV ONE (17:06)
[2020-12-25] MEDS ORDERED: HYDRALAZINE HCL 20 MG/ML VIAL ONE (18:03)
[2020-12-25] MEDS ORDERED: ONDANSETRON 4 MG/2 ML VIAL IV PRN (19:16)
[2020-12-25] MEDS ORDERED: HYDROCODONE/APAP 10/325 TAB PO PRN (19:16)
[2020-12-25] MEDS ORDERED: ONDANSETRON 4 MG/2 ML VIAL ONE (19:38)
[2020-12-25] MEDS ORDERED: HYDROCODONE/APAP 10/325 TAB ONE (19:42)
[2020-12-25 20:21] VITALS: TEMP 97.1
[2020-12-25] MEDS ORDERED: ACETAMINOPHEN 325 MG TABLET ONE (21:19)
[2020-12-25 22:31] VITALS: O2SAT 97
[2020-12-25 22:57] VITALS: BP 129/66
--- NOTE | 2020-12-26 00:01 | OP ---
Date of Procedure: 12/25/2020 Surgeon: SUGEY RANDOLPH Procedure Performed: Selective left peripheral angiogram. Balloon angioplasty of 3 focal severe stenoses of the left SFA using a 6 mm x 40 mm Terumo balloon. Complications: None. Bleeding: Less than 50 mL. Access Site: Radial artery 6-Cypriot closed with TR band. Description Of Procedure: After risks, benefits, and alternatives were explained, the patient agreed to the procedure and signed informed consent. Patient was brought into the cardiac catheterization laboratory, prepped and draped in usual sterile fashion. We accessed right radial artery using pediatric micropuncture kit and placed a 6-Cypriot slender sheat h and then exchanged for a 6-Cypriot long Destination sheath that was brought all the way down to dist al aorta when we took a long Vert catheter through the Destination sheath into the left common iliac artery and performed a selective angiogram of the left lower extremity vascular system and then we to ok a long angled tip Glidewire into the SFA across all areas of stenoses. We gave systemic heparin t o assure ACT level above 250 and then we took a 6.0 x 40 mm Terumo balloon across the distal stenosis at the knee level and did balloon angioplasty successfully and then into the mid and proximal lesion s in the same fashion and final results showed significant improvement. Due to the contrast load, we decided to stop the procedure and bring the patient as a stage to check the right side at a later ti me. Then all catheter and sheath were removed and placed TR band with good hemostasis. Patient was given 300 mg of Plavix, continue 75 mg daily along with aspirin 81 mg daily and high-dose statin on d ischarge home once criteria are met. Findings: 1.Common iliac artery is patent. The common femoral artery has 40% stenosis. The left SFA, there a re some 3 different areas with a stenosis of 80% in the proximal and mid lesions and 90 to 95% in the distal SFA at the knee level, status post successful balloon angioplasty as above. 2.[id number] vasculature is patent. Conclusion: Successful SFA balloon angioplasty at 3 different levels. We will plan staged selective peripheral angiogram of the right lower extremity in about 4 weeks due to a contrast load. SR/MODL Voice ID: [id number] Report ID: [id number]
== END 2020-12-25 23:20 | disposition home or self-care (01) ==
LOC: CCL 12:30
PROVIDERS: ATTEND Internal Medicine
DX: I70.212 Atherosclerosis of native arteries of extremities with intermittent claudication, left leg (principal); I10 Essential (primary) hypertension; E78.5 Hyperlipidemia, unspecified; E11.9 Type 2 diabetes mellitus without complications; Z79.02 Long term (current) use of antithrombotics/antiplatelets; Z95.820 Peripheral vascular angioplasty status with implants and grafts; Z86.73 Personal history of transient ischemic attack (TIA), and cerebral infarction without residual deficits; Z88.0 Allergy status to penicillin; Z88.6 Allergy status to analgesic agent; Z87.891 Personal history of nicotine dependence; Z20.822 Contact with and (suspected) exposure to COVID-19
CPT/HCPCS: 93005; 85025; 80048; 36415; 85610; 82947 ×2; 85347; 85730; 71046; 37224; U0003; C1893; C1725; J0360; J1644 ×3; J2250; J3010 ×2; J7040; J2405; 36200; 75630

== ENCOUNTER 2022-08-16 18:30 | Inpatient (IN) | payer OTHER ==
--- OUTSIDE RECORDS SUMMARY | 2022-08-16 20:19 | XMS REPORT | Continuity of Care Document ---
:1935 Author Organization [facility] t Address [address] [place] [address] [address] [place] [address] Care Team Providers Name Role Phone Suresh Santos Primary Care Physician RAHUL PARRA Attending Clinician Unavailable Rahul Parra MD Attending Clinician Doctor Unassigned, [place] Attending Clinician Unavailable Pob, [facility] Main Attending Clinician Unavailable Isabel Martins PT Attending Clinician Unavailable BETH SILVA Attending Clinician Unavailable Beth Jain Attending Clinician Gerardo Fletcher MD Attending Clinician GERARDO FLETCHER Attending Clinician Unavailable YANETH DOUGLAS Attending Clinician Unavailable ROBIN LIU Admitting Clinician Unavailable RAHUL PARRA Admitting Clinician Unavailable Rahul Parra MD Admitting Clinician SANTIAGO TRUONG Admitting Clinician Unavailable Payers Payer Name Policy Type Policy Number Effective Date Expiration Date S ource [employer] CHOICE [id number] 2020 00:00:00 Problems Condition Condition Condition Status Onset Resolution Last Treating Co mments Source Name Details Category Date Date Treatment Clinician Date Primary Primary Disease Active 2020-10 Overview: Univ ers osteoarthr osteoarthr -23 Formattin ity of itis of itis of 00:00: g of this [place] left hip left hip 00 note Medica l might be Branch different from the original. Added automatic ally from request for surgery [id number] Vitamin D Vitamin D Disease Active [facility] deficiency 3-25 [facility] 00:00: Medical 00 Center History of History of Disease Active [facility] stroke [facility] Obesity Obesity Disease Active Univers (BMI (BMI 1-18 ity of 30-39.9) 30-39.9) 00:00: [place] 00 Medical Branch Allergies, Adverse Reactions, Alerts Allergy Allergy Status Severity Reaction(s) Onset Inactive Treating Comm ents Source Name Type Date Date Clinician Amoxicil Propensi Active Hives [facility] 3-21 [facility] adverse 00:00: Medical reaction 00 Center s AMOXICIL Allergy Active Hives [facility] 3-21 [facility] 00[facility] Center AMOXICIL DRUG Active Med Hives Univers CELINA INGREDI 9-12 ity of 00:00: [place] 00 Medical Branch OXYCODON DRUG Active Med Hallucinates Un xiomy E-ACETAM 9-12 ity of INOPHEN 00:00: [place] 00 Medical Branch Amoxicil Propensi Active Hives Univer s celina ty to 9-12 ity of adverse 00:00: [place] reaction 00 Medical s to Branch drug Oxycodon Propensi Active Hallucinatio 0 Univers e-Acetam ty to ns 9-12 ity of inophen adverse 00:00: [place] reaction 00 Medical s to Branch drug NO KNOWN Allergy Active [facility] Social History Social Habit Start Date Stop Date Quantity Comments Source History of Current smoker University of tobacco use [facility] [place] History SDOH [facility] Alcohol Std [facility] r Drinks History SDOH [facility] Alcohol Binge Medical Deondre [facility] History SDOH [facility] Alcohol Comment Medical C enter Exposure to 2022-08-03 2022-08-13 Not sure University of SARS-CoV-2 00:00:00 10:58:00 [facility] (event) Branch Education 2021-09-07 2021-09-07 17 University of 00:00:00 00:00:00 [facility] [place] Alcohol intake 2019-12-24 2019-12-[address] [facility] 00:00:00 00:00:00 non-drinker of Medical Ce nter alcohol (finding) Tobacco use and 2019-12-22 2019-12-[address] [facility] [facility] exposure 00:00:00 00:00:00 Medical Center History SDOH 2019-12-22 2019-12-[address] [facility] Alcohol Frequency 00:00:00 00:00:00 [facility] Center Sex Assigned At [address] [address] [facility] 00:00:00 00:00:00 Medical Center Smoking Status Start Date Stop Date Source Ex-smoker 2022-08-13 00:00:00 2022-08-13 00:00:00 [facility] Medications Ordered Filled Start Stop Current Ordering Indication Dosage Frequency Signature Comments Components Source Medication Medication Date Date Medication? Clinician (SIG) Name Name triamcinolo 2021- No [id number] 40mg [facility] 05-03 9100 ity of acetonide 22:15: 21:00 [place] (KENALOG) 00 :00 Medical injection Branch 40 mg triamcinolo 2021- No [id number] 40mg 40 mg, [facility] 05-03 9100 Intramuscu ity of acetonide 22:15: 21:00 [place]CE, [place] ([place] 00 :00 1 dose, On Medi kinza injection Tue05/03/22 Bran ch 40 mg at 1715, Routine triamcinolo 2021- No [id number] 40mg [facility] 05-03 9100 ity of acetonide 22:15: 21:00 [place] (KENALOG) 00 :00 Medical injection Branch 40 mg triamcinolo 2021- No [id number] 40mg 40 mg, [facility] 05-03 9100 Intramuscu ity of acetonide 22:15: 21:00 [place], ONCE, [place] (KE[place]LOG) 00 :00 1 dose, On Medi kinza injection Tue05/03/22 Bran ch 40 mg at 1715, Routine omeprazole 2020-10 Yes 40mg Take 40 mg U nivers 40 mg 2-12 by mouth ity of capsule 05:35: daily. [place] [facility] Branch calcium 2020-10 Yes Take by Univers citrate/vit 2-12 mouth. ity of [place] D3 05:35: [place] (CITRACAL 02 Medical CREAMY Branch BITES ORAL) simvastatin 2020-10 Yes 20mg Take 20 mg Univers 20 mg 2-12 by mouth ity of tablet 05:35: at [place] 02 bedtime. Medical Branch calcium 2020-10 Yes 1{tbl} Take 1 Univer s phosphate 2-12 tablet by ity o f trib/vit D3 05:35: mouth [place] (CITRACAL + 02 daily. Medica l D3, CALCIUM Branch PHOS, ORAL) fluticasone 2020-10 Yes 1{puff} Inhale 1 Univers -umeclidin- 2-12 Puff ity of vilanter 05:35: daily. [place] ([address]) Branch 100-62.5-25 mcg DsDv omeprazole 2020-10 Yes 40mg Take 40 mg U nivers 40 mg 2-12 by mouth ity of capsule 05:35: daily. [place] [facility] calcium 2020-10 Yes Take by Univers citrate/vit 2-12 mouth. ity of [place] D3 05:35: [place] (CITRACAL 02 Medical CREAMY Branch BITES ORAL) simvastatin 2020-10 Yes 20mg Take 20 mg Univers 20 mg 2-12 by mouth ity of tablet 05:35: at [place] [address] bedtime. [facility] calcium 2020-10 Yes 1{tbl} Take 1 Univer s phosphate 2-12 tablet by ity o f trib/vit D3 05:35: mouth [place] (CITRACAL + 02 daily. Medica l D3, CALCIUM Branch PHOS, ORAL) fluticasone 2020-10 Yes 1{puff} Inhale 1 Univers -umeclidin- 2-12 Puff ity of vilanter 05:35: daily. [place] ([address]) Branch 100-62.5-25 mcg DsDv omeprazole 2020-10 Yes 40mg Take 40 mg U nivers 40 mg 2-12 by mouth ity of capsule 05:35: daily. [place] [facility] calcium 2020-10 Yes Take by Univers citrate/vit 2-12 mouth. ity of [place] D3 05:35: [place] (CITRACAL 02 Medical CREAMY Branch BITES ORAL) simvastatin 2020-10 Yes 20mg Take 20 mg Univers 20 mg 2-12 by mouth ity of tablet 05:35: at [place] [address] bedtime. Medical Branch calcium 2020-10 Yes 1{tbl} Take 1 Univer s phosphate 2-12 tablet by ity o f trib/vit D3 05:35: mouth [place] (CITRACAL + 02 daily. Medica l D3, CALCIUM Branch PHOS, ORAL) fluticasone 2020-10 Yes 1{puff} Inhale 1 Univers -umeclidin- 2-12 Puff ity of vilanter 05:35: daily. [place] [facility] ELLIP) Branch 100-62.5-25 mcg DsDv omeprazole 2020-10 Yes 40mg Take 40 mg U nivers 40 mg 2-12 by mouth ity of capsule 05:35: daily. [place] [address] Medical Branch calcium 2020-10 Yes Take by Univers citrate/vit 2-12 mouth. ity of [place] D3 05:35: [place] (CITRACAL 02 Medical CREAMY Branch BITES ORAL) simvastatin 2020-10 Yes 20mg Take 20 mg Univers 20 mg 2-12 by mouth ity of tablet 05:35: at [place] [address] bedtime. Medical Branch calcium 2020-10 Yes 1{tbl} Take 1 Univer s phosphate 2-12 tablet by ity o f trib/vit D3 05:35: mouth [place] (CITRACAL + 02 daily. Medica l D3, CALCIUM Branch PHOS, ORAL) fluticasone 2020-10 Yes 1{puff} Inhale 1 Univers -umeclidin- 2-12 Puff ity of vilanter 05:35: daily. [place] ([facility] Medical ELLIP) Branch 100-62.5-25 mcg DsDv metoprolol 2020-10 Yes 25mg Take 25 mg U nivers succinate 2-10 by mouth ity of XL (TOPROL 17:36: daily. [place] XL) 25 mg 00 Medical 24 hr Branch tablet tiotropium 2020-10 Yes 18ug Inhale 18 Un xiomy (SPIRIVA 2-10 mcg daily. ity o f WITH 17:36: [place] HANDIHALER) 00 Medical 18 mcg Branch inhalation albuterol 2020-10 Yes 2{puff} Inhale 2 U nivers (VENTOLIN 2-10 Puffs ity of HFA) 90 17:36: every 4 [place] mcg/actuati 00 (four) Medica l on inhaler hours as Branc h needed for Shortness of Breath. triamterene 2020-10 Yes 1{tbl} Take 1 Un xiomy -hydrochlor 2-10 tablet by ity of othiazid 17:36: mouth [place] 37.5-25 mg 00 daily. Medical tablet Branch metoprolol 2020-10 Yes 25mg Take 25 mg U nivers succinate 2-10 by mouth ity of XL (TOPROL 17:36: daily. [place] XL) 25 mg 00 Medical 24 hr Branch tablet tiotropium 2020-10 Yes 18ug Inhale 18 Un xiomy (SPIRIVA 2-10 mcg daily. ity o f WITH 17:36: [place] HANDIHALER) 00 Medical 18 mcg Branch inhalation albuterol 2020-10 Yes 2{puff} Inhale 2 U nivers (VENTOLIN 2-10 Puffs ity of HFA) 90 17:36: every 4 [place] mcg/actuati 00 (four) Medica l on inhaler hours as Branc h needed for Shortness of Breath. triamterene 2020-10 Yes 1{tbl} Take 1 Un xiomy -hydrochlor 2-10 tablet by ity of othiazid 17:36: mouth [place] 37.5-25 mg 00 daily. Medical tablet Branch metoprolol 2020-10 Yes 25mg Take 25 mg U nivers succinate 2-10 by mouth ity of XL (TOPROL 17:36: daily. [place] XL) 25 mg 00 Medical 24 hr Branch tablet tiotropium 2020-10 Yes 18ug Inhale 18 Un xiomy (SPIRIVA 2-10 mcg daily. ity o f WITH 17:36: [place] HANDIHALER) 00 Medical 18 mcg Branch inhalation albuterol 2020-10 Yes 2{puff} Inhale 2 U nivers (VENTOLIN 2-10 Puffs ity of HFA) 90 17:36: every 4 [place] mcg/actuati 00 (four) Medica l on inhaler hours as Branc h needed for Shortness of Breath. triamterene 2020-10 Yes 1{tbl} Take 1 Un xiomy -hydrochlor 2-10 tablet by ity of othiazid 17:36: mouth [place] 37.5-25 mg 00 daily. Medical tablet Branch metoprolol 2020-10 Yes 25mg Take 25 mg U nivers succinate 2-10 by mouth ity of XL (TOPROL 17:36: daily. [place] XL) 25 mg 00 Medical 24 hr Branch tablet tiotropium 2020-10 Yes 18ug Inhale 18 Un xiomy (SPIRIVA 2-10 mcg daily. ity o f WITH 17:36: [place] HANDIHALER) 00 Medical 18 mcg Branch inhalation albuterol 2020-10 Yes 2{puff} Inhale 2 U nivers (VENTOLIN 2-10 Puffs ity of HFA) 90 17:36: every 4 [place] mcg/actuati 00 (four) Medica l on inhaler hours as Branc h needed for Shortness of Breath. triamterene 2020-10 Yes 1{tbl} Take 1 Un xiomy -hydrochlor 2-10 tablet by ity of othiazid 17:36: mouth [place] 37.5-25 mg 00 daily. Medical tablet Branch clopidogrel 2020- No 75mg Take 75 mg Univers (PLAVIX) 75 02-05 05-06 by mouth ity of mg tablet 14:33: 00:00 daily. [place] 03 :00 Medical Branch simvastatin 2020- No 20mg Take 20 mg Univers (ZOCOR) 20 02-05 05-06 by mouth ity of mg tablet 14:33: 00:00 at [place] 03 :00 bedtime. Medical Branch omeprazole 2020- No 40mg Take 40 mg Univers 40 mg 06 05-06 by mouth ity of capsule 14:33: 00:00 daily. [place] 03 :00 Medical Branch umeclidiniu 2020-2020- No 1{puff} Inhale 1 Univers m-vilantero - 05-06 Puff ity of l (ANORO 14:33: 00:00 daily. [place] ELLIPTA) 03 :00 Medical 62.5-25 Branch mcg/actuati on inhalation disk clopidogrel 2020- No 75mg Take 75 mg Univers (PLAVIX) 75 -06 05-06 by mouth ity of mg tablet 14:33: 00:00 daily. [place] 03 :00 Medical Branch simvastatin 2020- No 20mg Take 20 mg Univers (ZOCOR) 20 - 05-06 by mouth ity of mg tablet 14:33: 00:00 at [place] 03 :00 bedtime. Medical Branch omeprazole 0 2020- No 40mg Take 40 mg Univers 40 mg 02-05-06 by mouth ity of capsule 14:33: 00:00 daily. [place] 03 :00 Medical Branch umeclidiniu 2020-0 2020- No 1{puff} Inhale 1 Univers m-vilantero 5-06 05-06 Puff ity of l (ANORO 14:33: 00:00 daily. [place] ELLIPTA) 03 :00 Medical 62.5-25 Branch mcg/actuati on inhalation disk triamterene Yes .5{tbl} Take 0.5 Univers -hydrochlor 5-06 tablets by it y of othiazid 14:33: mouth. [place] 37.5-25 mg 00 Medical tablet Branch triamterene 0 Yes .5{tbl} Take 0.5 Univers -hydrochlor 5-06 tablets by it y of othiazid 14:33: mouth. [place] 37.5-25 mg 00 Medical tablet Branch HYDROcodone 2020-0 Yes Univer s -acetaminop 4-19 ity of hen 10-325 00:00: [place] mg tablet 00 Medical Branch HYDROcodone 2020-0 Yes Univer s -acetaminop 4-19 ity of hen 10-325 00:00: [place] mg tablet 00 Medical Branch HYDROcodone 2020-0 Yes 1{tbl} Take 1 Un xiomy -acetaminop 4-19 tablet by ity of hen 10-325 00:00: mouth [place] mg tablet 00 every 8 Medical (eight) Branch hours as needed. HYDROcodone 2020-0 Yes 1{tbl} Take 1 Un xiomy -acetaminop 4-19 tablet by ity of hen 10-325 00:00: mouth [place] mg tablet 00 every 8 Medical (eight) Branch hours as needed. HYDROcodone 2020-0 Yes 1{tbl} Take 1 Un xiomy -acetaminop 4-19 tablet by ity of hen 10-325 00:00: mouth [place] mg tablet 00 every 8 Medical (eight) Branch hours as needed. HYDROcodone 2020-0 Yes 1{tbl} Take 1 Un xiomy -acetaminop 4-19 tablet by ity of hen 10-325 00:00: mouth [place] mg tablet 00 every 8 Medical (eight) Branch hours as needed. raloxifene Yes Univers 60 mg 4-01 ity of tablet 00:00: Medical Branch raloxifene Yes Univers 60 mg 4-01 ity of tablet 00:00: [facility] Branch raloxifene Yes Univers 60 mg 4-01 ity of tablet 00:00: [facility] Branch raloxifene Yes Univers 60 mg 4-01 ity of tablet 00:00: [facility] Branch raloxifene Yes Univers 60 mg 4-01 ity of tablet 00:00: [facility] Branch raloxifene Yes Univers 60 mg 4-01 ity of tablet 00:00: Medical Branch JARDIANCE Yes Univers 25 mg Tab 3-20 ity of 00:00: [facility] Branch JARDIANCE Yes 25mg Take 25 mg Un xiomy 25 mg Tab 3-20 by mouth ity of 00:00: daily. Medical Branch JARDIANCE Yes 25mg Take 25 mg Un xiomy 25 mg Tab 3-20 by mouth ity of 00:00: daily. Medical Branch JARDIANCE Yes 25mg Take 25 mg Un xiomy 25 mg Tab 3-20 by mouth ity of 00:00: daily. [facility] Branch JARDIANCE Yes 25mg Take 25 mg Un xiomy 25 mg Tab 3-20 by mouth ity of 00:00: daily. [facility] Branch JARDIANCE Yes Univers 25 mg Tab 3-20 ity of 00:00: [facility] Branch simvastatin Yes 20mg QD Take [address] (ZOCOR) 20 3-26 by mouth [facility] MG tablet 16:46: nightly. Medi kinza 28 Center umeclidiniu Yes 1{puff} QD Inhale [address] m-vilantero 3-26 puff by Neva Choudhary (ANORO 16:46: mouth via Medi kinza ELLIPTA) 28 inhaler Center 62.5-25 every mcg/actuati morning. on DsDv acetaminoph 2019-0 Yes 1{tbl} Take [address] en-codeine 3-26 tablet by Mickey wilder (TYLENOL 16:46: mouth Medical #3) 300-30 28 every 4 Center mg per (four) tablet hours as needed for Pain. triamterene 2020-0 Yes .5{tbl} QD Take 0.[address] -hydroCHLOR 3-26 tablets by Karyn tobin Othiazide 16:46: mouth Medical (MAXZIDE-25 28 daily. [place] ) 37.5-25 mg per tablet clopidogreL 2020-0 Yes 75mg Take 75 mg Univers 75 mg 3-17 by mouth ity of tablet 00:00: daily. [address] clopidogreL 2020-0 Yes 75mg Take 75 mg Univers 75 mg 3-17 by mouth ity of tablet 00:00: daily. [address] clopidogreL 2020-0 Yes 75mg Take 75 mg Univers 75 mg 3-17 by mouth ity of tablet 00:00: daily. [address] clopidogreL 2020-0 Yes 75mg Take 75 mg Univers 75 mg 3-17 by mouth ity of tablet 00:00: daily. [address] clopidogreL 2020-0 Yes Univer s 75 mg 3-17 ity of tablet 00:00: [address] clopidogreL 2020-0 Yes Univer s 75 mg 3-17 ity of tablet 00:00: [address] DULoxetine 2019-0 Yes 30mg QD Take [address] (CYMBALTA) 3-02 by mouth [facility]ukes 30 MG 00:00: daily TAKE Medica l capsule 00 WITH FOOD. [place] clopidogreL 2019-0 Yes 75mg QD Take [address] (PLAVIX) 75 1-01 by mouth Luke s mg tablet 00:00: daily. Medica l 00 [place] JARDIANCE 2019-0 Yes 25mg QD Take [address] 25 mg 1-01 by mouth [facility] tablet 00:00: every Medical 00 morning. [place] omeprazole 2019-0 Yes 40mg QD Take [address] (PRILOSEC) 1-01 by mouth [facility] 40 MG 00:00: daily. Medical capsule 00 [place] metoprolol Yes 25mg Take 25 mg U nivers succinate 1-18 by mouth ity of XL (TOPROL 15:36: daily. [place] XL) 25 mg 33 Medical 24 hr [place] tablet tiotropium Yes 18ug Inhale 18 Un xiomy (SPIRIVA 1-18 mcg daily. ity o f WITH 15:36: [place] HANDIHALER) 33 Medical 18 mcg Branch inhalation albuterol Yes 2{puff} Inhale 2 U nivers (VENTOLIN 1-18 Puffs ity of HFA) 90 15:36: daily. [place] mcg/actuati 33 Medical on inhaler Branch metoprolol Yes 25mg Take 25 mg U nivers succinate 1-18 by mouth ity of XL (TOPROL 15:36: daily. [place] XL) 25 mg 33 Medical 24 hr Branch tablet tiotropium 2017 Yes 18ug Inhale 18 Un xiomy (SPIRIVA 1-18 mcg daily. ity o f WITH 15:36: [place] HANDIHALER) 33 Medical 18 mcg Branch inhalation albuterol Yes 2{puff} Inhale 2 U nivers (VENTOLIN 1-18 Puffs ity of HFA) 90 15:36: daily. [place] mcg/actuati 33 Medical on inhaler Branch Immunizations Ordered Filled Immunization Date Status Comments [facility] e Immunization Name Name SARS-COV-2 COVID-19 2020-11-11 Completed Unive rsity of MODERNA VACCINE 00:00:00 [facility] ical Branch SARS-COV-2 COVID-19 2020-11-11 Completed Unive rsity of MODERNA VACCINE 00:00:00 [facility] ical Branch SARS-COV-2 COVID-19 2020-11-11 Completed Unive rsity of MODERNA 12+ YRS 00:00:00 [facility] ical VACCINE Branch SARS-COV-2 COVID-19 2020-11-11 Completed Unive rsity of MODERNA 12+ YRS 00:00:00 [facility] ical VACCINE Branch SARS-COV-2 COVID-19 2020-10-15 Completed Unive rsity of MODERNA VACCINE 00:00:00 [facility] SARS-COV-2 COVID-19 2020-10-15 Completed Unive rsity of MODERNA VACCINE 00:00:00 [facility] ical Branch SARS-COV-2 COVID-19 2020-10-15 Completed Unive rsity of MODERNA 12+ YRS 00:00:00 [facility] VACCINE Branch SARS-COV-2 COVID-19 2020-10-15 Completed Unive rsity of MODERNA 12+ YRS 00:00:00 [facility] ical VACCINE Branch Influenza High Dose 2014-07-17 Completed Unive rsity of 00:00:00 [facility] [place] Influenza High Dose 2014-07-17 Completed Unive rsity of 00:00:00 [facility] [place] Influenza High Dose 2014-07-17 Completed Unive rsity of 00:00:00 [facility] [place] Influenza High Dose 2014-07-17 Completed Unive rsity of 00:00:00 [facility] [place] Influenza High Dose 2013-06-25 Completed Unive rsity of 00:00:00 [facility] [place] Influenza High Dose 2013-06-25 Completed Unive rsity of 00:00:00 [facility] [place] Influenza High Dose 2013-06-25 Completed Unive rsity of 00:00:00 [facility] [place] Influenza High Dose 2013-06-25 Completed Unive rsity of 00:00:00 [facility] [place] Pneumococcal 2011-05-25 Completed University o f Polysaccharide, 00:00:00 [facility] ical PPSV23 (PNEUMOVAX) Branch Pneumococcal 2011-05-25 Completed University o f Polysaccharide, 00:00:00 [place] Med ical PPSV23 (PNEUMOVAX) Branch Pneumococcal 2011-05-25 Completed University o f Polysaccharide, 00:00:00 [place] Med ical PPSV23 (PNEUMOVAX) Branch Pneumococcal 2011-05-25 Completed University o f Polysaccharide, 00:00:00 [facility] ical PPSV23 (PNEUMOVAX) Branch Tetanus/Diptheria 2010-02-09 Completed Univers ity of 00:00:00 [facility] [place] Tetanus/Diptheria 2010-02-09 Completed Univers ity of 00:00:00 [facility] Branch Tetanus/Diptheria 2010-02-09 Completed Univers ity of 00:00:00 [facility] [place] Tetanus/Diptheria 2010-02-09 Completed Univers ity of 00:00:00 [facility] [place] Tetanus/Diptheria 1999-10-05 Completed Univers ity of 00:00:00 [facility] [place] Pneumococcal 1999-10-05 Completed University o f Polysaccharide, 00:00:00 [facility] ical PPSV23 (PNEUMOVAX) Branch Tetanus/Diptheria 1999-10-05 Completed Univers ity of 00:00:00 [facility] [place] Pneumococcal 1999-10-05 Completed University o f Polysaccharide, 00:00:00 [place] Med ical PPSV23 (PNEUMOVAX) Branch Tetanus/Diptheria 1999-10-05 Completed Univers ity of 00:00:00 [facility] Branch Pneumococcal 1999-10-05 Completed University o f Polysaccharide, 00:00:00 [place] Med ical PPSV23 (PNEUMOVAX) Branch Tetanus/Diptheria 1999-10-05 Completed Univers ity of 00:00:00 [facility] Branch Pneumococcal 1999-10-05 Completed University o f Polysaccharide, 00:00:00 [facility] ical PPSV23 (PNEUMOVAX) Branch Vital Signs Vital Name Observation Time Observation Value Comments Source Systolic blood 2022-08-13 17:08:00 136 mm[Hg] Univer sity [place] [facility] pressure [facility] Diastolic blood 2022-08-13 17:08:00 81 mm[Hg] Unive [facility] Heart rate 2022-08-13 17:08:00 80 /min Universi ty [facility] Body weight 2022-08-13 17:08:[address] [facility] BMI 2022-08-13 17:08:00 30.47 kg/m2 [facility] [place] [facility] Oxygen saturation 2022-08-13 17:08:00 97 /min [facility] in Arterial blood [facility] anch by Pulse oximetry Body height 2022-05-03 20:59:[address] [facility] Body weight 2022-05-03 20:59:[address] [facility] BMI 2022-05-03 20:59:00 30.47 kg/m2 [facility] Systolic blood 2021-02-05 14:30:00 135 mm[Hg] Univer [facility] Diastolic blood 2021-02-05 14:30:00 78 mm[facility]Hg] [facility] 2021-02-05 14:30:00 78 /min [facility] Body height 2021-02-05 14:30:[address] [facility] Body weight 2021-02-05 14:30:00 77.111 kg Universi ty [facility] BMI 2021-02-05 14:30:00 31.09 kg/m2 [facility] Systolic blood 2021-02-05 14:30:00 135 mm[Hg] Univer sity [place] [facility] pressure [facility] Diastolic blood 2021-02-05 14:30:00 78 mm[Hg] [facility] Heart rate 2021-02-05 14:30:00 78 [facility] height 2021-02-05 14:30:00 157.5 cm [facility] Body weight 2021-02-05 14:30:00 77.111 kg [facility] BMI 2021-02-05 14:30:00 31.09 kg/m2 [facility] Procedures This patient has no known procedures. Plan of Care Planned Activity Planned Date Details Comments Source Future Scheduled 2022-06-[address] [facility] Test 00:00:00 (#1) [code = [facility] INFLUENZA VACCINE (#1)] Future Scheduled 2021-10-[address] [facility] Test 00:00:00 (12+) [code = Medical Center DEPRESSION SCREENING (12+)] Future Scheduled 2021-10-03 FALLS RISK SCREENING [facility] Test 00:00:00 [code = FALL[place] RISK Medical C enter SCREENING] Future Scheduled 2021-06-03 INFLUENZA VACCINE [facility] [place] Test 00:00:00 (Season Ended) [code Medical Branch = INFLUENZA VACCINE (Season Ended)] Future Scheduled 2021-06-03 INFLUENZA VACCINE [facility] [place] Test 00:00:00 (Season Ended) [code Medical Branch = INFLUENZA VACCINE (Season Ended)] Future Scheduled 2020-10-[address] [facility] Test 00:00:00 WELLNESS (YEAR 2 or Medical Center FIRST YEAR if no IPPE) [code = MEDICARE ANNUAL WELLNESS (YEAR 2 or FIRST YEAR if no IPPE)] Future Scheduled 2020-02-10 DTAP/TDAP/TD VACCINES [facility] 00:00:00 (3 - Td or Tdap) Medical Deondre ter [code = DTAP/TDAP/TD VACCINES (3 - Td or Tdap)] Future Scheduled 2019-12-[address] Test 00:[facility]00 measurement Medical Center (procedure) [code = 87703262] Future Scheduled 2002 Medicare Annual [facility] [place] Test 00:00:00 Wellness Visit Medical Branc h (procedure) [code = 759395532776102] Future Scheduled 2002 Screening for [facility] Test 00:00:00 osteoporosis Medical Branch (procedure) [code = 937075293] Future Scheduled 2002 [facility] 65+ (1 of 1 - PPSV23) Medica l Branch [code = PNEUMOCOCCAL VACCINES 65+ (1 of 1 - PPSV23)] Future Scheduled 2002 Medicare Annual [facility] ty [facility] Test 00:00:00 Wellness Visit Medical Bran h (procedure) [code = 545069237457150] Future Scheduled 2002 Screening for [facility] Test 00:00:00 osteoporosis Medical Branch (procedure) [code = 200810968] Future Scheduled 2002 PNEUMOCOCCAL VACCINES [facility]00 65+ (1 of 1 - PPSV23) Medica l Branch [code = PNEUMOCOCCAL VACCINES 65+ (1 of 1 - PPSV23)] Future Scheduled 1987 SHINGLES VACCINES ([address] [facility] Test 00:00:00 of 2) [code = [facility] Center SHINGLES VACCINES (1 of 2)] Future Scheduled 1987 Zoster Recombinant Unive rsity [facility] Test 00:00:00 Vaccine (SHINGRIX) (1 Medica l Branch of 2) [code = Zoster Recombinant Vaccine (SHINGRIX) (1 of 2)] Future Scheduled 1987 Zoster Recombinant Unive rsity [facility] Test 00:00:00 Vaccine (SHINGRIX) (1 Medica l Branch of 2) [code = Zoster Recombinant Vaccine (SHINGRIX) (1 of 2)] Future Scheduled 1956 DTaP,Tdap,and Td Univers ity [facility] Test 00:00:00 Vaccines (1 - Tdap) Medical Branch [code = DTaP,Tdap,and Td Vaccines (1 - Tdap)] Future Scheduled 1956 DTaP,Tdap,and Td Univers ity [facility] Test 00:00:00 Vaccines (1 - Tdap) Medical Branch [code = DTaP,Tdap,and Td Vaccines (1 - Tdap)] Future Scheduled 1953 SARS-CoV-2 (COVID-19) [facility] [place] [facility] 00:[facility]00 Vaccine (1) [code = Medical Branch SARS-CoV-2 (COVID-19) Vaccine (1)] Future Scheduled 1953 SARS-CoV-2 (COVID-19) [facility] [place] [facility] 00:[facility]:00 Vaccine (1) [code = Medical Branch SARS-CoV-2 (COVID-19) Vaccine (1)] Future Scheduled 1949 Depression screening [facility] [place] Test 00:00:00 (procedure) [code = Medical Branch 727971311] Future Scheduled 1949 Depression screening [facility] [place] Test 00:00:00 (procedure) [code = Medical Branch 345710584] Future Scheduled 1947 DIABETIC EYE EXAM [facility] Test 00:00:00 [code = DIABETIC EYE Medical Center EXAM] Future Scheduled 1947 Urine screening for [facility] Test 00:00:00 protein (procedure) Medical Center [code = 781497392] Future Scheduled 1943 PNEUMOCOCCAL 65+ YRS [facility] Test 00:00:00 (1 - PCV) [code = Medical Ce nter PNEUMOCOCCAL 65+ YRS (1 - PCV)] Future Scheduled 1938-05-04 COVID-19 VACCINE (#1) [facility] Test 00:00:00 [code = COVID-[address] VACCINE (#1)] Future Scheduled 1937 DXA SCAN [code = DXA [facility] Test 00:00:00 SCAN] Medical Center Encounters Start End Encounter Admission Attending Care Care Encounter Source Date/Time Date/Time Type Type Clinicians Facility Department ID 2019-12-22 Inpatient SLEH SLE [id number] SLE 17:27:57 [id number] 2022-08-13 2022-08-13 Outpatient R AIDA [facility] [id number] Univers 11:10:00 23:59:00 RAHUL herzog [facility] 2022-08-13 2022-08-13 Office BOB Parra 1.2.111.615 [id number] Univers 11:00:00 12:05:07 Visit Rahul [facility] 350.1.13.10 Jordon 4.2.7.2.686 Tony as BETHEL?BLEA [phone] Me dicreinier JULES [address] [place] MEDICAL OFFICE [facility] 2022-05-03 2022-05-03 [facility] [id number] Univers 16:00:00 16:42:52 [facility] 2022-05-03 2022-05-03 Office [facility] 1.2.376.804 [id number] Univers 16:00:00 16:42:52 Visit Rahul Choudhary [facility] 350.1.13.10 [facility] 4.2.7.2.686 Tony as BETHEL?BLEA [id number] Me gerard JULES 198 [facility] OFFICE [facility] 2022-05-03 2022-05-03 Orders Doctor KAILA 1.2.840.114 [id number] Univers 00:00:00 00:00:00 Only Unassigned, MECHE 350.1.13.10 ity of [place] [facility] 4.2.7.2.686 Tony as [id number] [address] 2021-10-26 2021-10-26 [facility] 1.2.840.114 [id number] Univers 14:00:00 23:59:00 Encounter Rahul Choudhary [facility] 350.1.13.10 [facility] 4.2.7.2.686 Tony as BETHEL?BLEA [id number] Me gerard JULES 809 [facility] OFFICE [facility] 2021-10-26 2021-10-26 Office [facility] 1.2.481.556 [id number] Univers 13:30:00 14:52:20 Visit Rahul Choudhary [facility] 350.1.13.10 it [facility] 4.2.7.2.686 Tony as BETHEL?BLEA [id number] Me gerard JULES 198 [facility] OFFICE [facility] 2021-10-26 2021-10-26 [facility] [id number] Univers 13:30:00 14:52:20 [facility] 2021-10-26 2021-10-26 [facility] [id number] Univers 13:30:00 14:52:20 [facility] Branch 2021-09-23 2021-09-23 [facility] 1.2.840.114 [id number] Univers 15:00:00 23:59:00 Encounter Rahul Choudhary [facility] 350.1.13.10 ity of [place] 4.2.7.2.686 Tony as BETHEL?BLEA [id number] [place] 746659 [place] MEDICAL OFFICE BUILDING 2021-09-23 2021-09-23 Outpatient [facility] [id number] Univers 14:15:00 15:56:45 RAHUL angel [facility] 2021-09-21 2021-09-21 Outpatient [facility] [id number] Univers 13:30:00 13:30:00 [facility] 2021-09-14 2021-09-14 Outpatient R [facility] [id number] Univers 00:00:00 00:00:00 ity of [facility] [place] 2021-09-12 2021-09-12 Outpatient R [facility] [id number] Univers 00:00:00 00:00:00 ity [facility] 2021-09-12 2021-09-12 Orders Doctor KAILA 1.2.840.114 [id number] Univers 00:00:00 00:00:00 Only Unassigned, MECHE 350.1.13.10 ity of [place] [facility] 4.2.7.2.686 Tony as [id number] [facility] 009 Branch 2021-09-07 2021-09-11 [facility] S[facility] [id number] Univers 06:25:00 17:35:00 RAHUL [facility] 2021-09-07 2021-09-11 [facility] 1.2.840.114 [id number] Univers 06:25:00 17:35:00 Encounter Rahul STACY 350.1.13.10 [place] [facility] [id number] [facility] 081 Branch 2021-09-07 2021-09-07 Surgery [facility] 1.2.060.279 [id number] Univers 07:30:00 09:51:00 Rahul STACY 350.1.13.10 i ty [facility] 4.2.7.2.[place]ICAL [id number] [facility] 020 Branch 2021-09-07 2021-09-07 Orders Doctor KAILA 1.2.840.114 [id number] Univers 00:00:00 00:00:00 Only Unassigned, MECHE 350.1.13.10 ity of [place] [facility] 4.2.7.2.686 Tony as [id number] [facility] 009 Branch 2021-09-04 2021-09-04 [facility] 1.2.840.114 [id number] Univers 10:14:47 23:59:00 Encounter Rahul Funmi STACY 350.1.13.10 [place] [id number] [facility] 807 Branch 2021-09-04 2021-09-04 [facility] [id number] Univers 10:14:09 23:59:00 RAHUL ity of [facility] [place] 2021-09-04 2021-09-04 Hospital [facility] 1.2.840.114 [id number] Univers 10:14:09 23:59:00 Encounter Rahul Choudhary REGIS 350.1.13.10 [place] [id number] [facility] 850 Branch 2021-09-04 2021-09-04 [facility] First Monty, [place] Lab Main [facility] 1.2.8 40.114 [id number] Univers 10:15:43 10:30:43 Visit Rahul Parra REG[facility] 350.1.13.10 [place].2.[place] [id number] Nh dical [facility] 353 Branch [facility] 2021-09-04 2021-09-04 Orders Doctor KAILA 1.2.840.114 [id number] Univers 00:00:00 00:00:00 Only Unassigned, MECHE 350.1.13.10 ity of [place] [facility] 4.2.7.2.686 Tony as [id number] [facility] [address] [place] 2021-09-03 2021-09-03 Ancillary Clint Isabel Méndez [facility] 1 .2.840.114 [id number] Univers 13:04:41 16:31:03 Visit Rahul Parra 350.1.13.10 ity of [place].2.[place] [id number] Nh dical NAL 179 [facility] 2021-09-03 2021-09-03 Outpatient R AIDA [facility] [id number] Univers 13:00:00 16:31:03 RAHUL caba [facility] 2021-08-31 2021-08-31 Telephone Aida [facility] 1.2.840.114 [id number] Univers 00:00:00 00:00:00 Rahul Choudhary HEALTH 350.1.13.10 it y of [place] 4.2.7.2.686 Tony as BETHEL?BLEA [phone] Nh davidreinier JULES [address] [place] MEDICAL OFFICE [facility] 2021-08-25 2021-08-25 Prep For Aida [facility] 1.2.840.114 [id number] Univers 00:00:00 00:00:00 Surgery Rahul Choudhary HEALTH 350.1.13.10 it y of [place] 4.2.7.2.686 Tony as BETHEL?BLEA [id number] Nh dicreinier [place] 198 [facility] OFFICE [facility] 2021-08-19 2021-08-19 Outpatient R AIDA [facility] [id number] Univers 13:20:00 23:59:00 RAHUL caba [facility] 2021-08-19 2021-08-19 [facility] 1.2.840.114 [id number] Univers 13:20:00 23:59:00 Encounter Rahul Choudhary HEALTH 350.1.13.10 ity of [place] 4.2.7.2.686 Tony as BETHEL?BLEA [phone] Nh dicreinier JULES 809 [facility] OFFICE [facility] 2021-08-19 2021-08-19 Office Aida [facility] 1.2.718.025 [id number] Univers 13:04:53 14:46:08 Visit Rahul DUNNE 350.1.13.10 it [facility] 4.2.7.2.686 Tony as BETHEL?BLEA [phone] Nh gerard FRAN [address] [place] [address] MEDICAL OFFICE BUILDING 2021-08-19 2021-08-19 Outpatient R AIDA, [facility] [id number] Univers 13:20:00 13:20:00 RAHUL caba [facility] 2021-08-18 2021-08-18 Outpatient R RYLEE [facility] [id number] Univers 13:00:00 13:00:00 BETH ity [facility] 2021-08-18 2021-08-18 Telemedici Rylee [facility] 1.2.840.1 [id number] Univers 09:49:24 10:04:24 ne Visit Beth DUNNE 350.1.13.10 ity of [facility] 4.2.7.2.[place] [id number] [facility] 205 [place] 2021-08-13 2021-08-13 [facility] 1.2 .840.114 [id number] Univers 08:50:31 23:59:00 Encounter Gerardo Fletcher 350.1.13.10 ity of [facility] 4.2.7.2.[place] [id number] [facility] [address] [place] 2021-08-13 2021-08-13 [facility] 1.2 .840.114 [id number] Univers 08:50:15 23:59:00 Encounter Gerardo Fletcher 350.1.13.10 ity of [facility] 4.2.7.2.[place] [id number] [address] 2021-08-13 2021-08-13 Outpatient R CHANCE [facility] [id number] Univers 08:50:00 08:50:00 GERARDO caba o f [facility] [place] 2021-08-13 2021-08-13 [facility] 1.2 .840.114 [id number] Univers 08:50:00 08:50:00 Encounter Gerardo FletcherTON 350.1.13.10 ity of [place].2.[place] [facility] [id number] [facility] 850 Branch 2021-08-04 2021-08-04 Telephone [facility] 1.2.840.114 [id number] Univers 00:00:00 00:00:00 Rahul Choudhary HEALTH 350.1.13.10 it y of [place] 4.2.7.2.686 Tony as BETHEL?BLEA [id number] [address] MEDICAL OFFICE [facility] 2021-07-28 2021-07-28 Office Rylee [facility] 1.2.840.114 [id number] Univers 13:32:00 14:21:28 Visit Beth R Angel HEALTH 350.1.13.10 ity of [facility] 4.2.7.2.[place] [id number] [facility] 205 [place] 2021-07-28 2021-07-28 Outpatient R RYLEE [facility] [id number] Univers 13:30:00 13:30:00 BETH ity of [facility] [place] 2021-07-28 2021-07-28 Orders Doctor KAILA 1.2.840.114 [id number] Univers 00:00:00 00:00:00 Only Unassigned, MECHE 350.1.13.10 ity of [place] [facility] 4.2.7.2.686 Tony as [id number] [address] 2021-07-24 2021-07-24 [facility]patient [facility] [id number] Univers 09:30:00 09:30:00 RAHUL ity of [facility] [place] 2021-07-15 2021-07-15 Telephone [facility] 1.2.840.114 [id number] Univers 00:00:00 00:00:00 Rahul Choudhary Health 350.1.13.10 it y of [place] 4.2.7.2.686 Tony as Bethel?Blea [id number] [address] Medical Office [facility] 2021-06-15 2021-06-15 Orders Doctor BRIGHT 1.2.840.114 [id number] Univers 00:00:00 00:00:00 Only Unassigned, MECHE 350.1.13.10 ity of [place] [facility] 4.2.7.2.686 Tony as [id number] [facility] 009 Branch 2021-05-27 2021-05-27 Hospital LAURA Parra 1.2.840.114 [id number] Univers 14:31:00 23:59:00 Encounter Rahul VELASQUEZ 350.1.13.10 [place] [id number] [facility] 043 Branch 2021-05-27 2021-05-27 Outpatient [facility] NUT [id number] Univers 00:00:00 00:00:00 RAHUL caba [facility] 2021-05-22 2021-05-22 [facility] 1.2.840.114 [id number] Univers 14:15:00 23:59:00 Encounter Rahul Stacy 350.1.13.10 ity of [place].2.686 [place] [id number] [facility] 807 [place] 2021-05-22 2021-05-22 Outpatient R [facility] [id number] Univers 14:30:00 14:30:00 RAHUL caba [facility] 2021-05-22 2021-05-22 Miller First Monty, Adc Lab Main [facility] 1.2.8 40.114 [id number] Univers 14:12:42 14:27:42 Visit Rahul Parra 350.1.13.10 ity of [place]2.7.2.686 [place] [facility] Ed[facility] [id number] Nh dical nal 353 Branch [facility] 2021-05-22 2021-05-22 Orders Doctor KAILA 1.2.840.114 [id number] Univers 00:00:00 00:00:00 Only Unassigned, MECHE 350.1.13.10 ity of [place] [facility] 4.2.7.2.686 Tony as [id number] [facility] 009 Branch 2021-05-19 2021-05-19 Orders Doctor KAILA 1.2.840.114 [id number] Univers 00:00:00 00:00:00 Only Unassigned, MECHE 350.1.13.10 ity of [place] [facility] 4.2.7.2.686 Tony as [id number] [facility] 009 [place] 2021-05-15 2021-05-15 Office [facility] 1.2.258.830 [id number] Univers 09:53:16 10:28:38 Visit Rahul Choudhary [facility] 350.1.13.10 it y of Surgical 4.2.7.2.686 Tony as Specialti [phone] Nh dical es 198 [facility] 2021-05-15 2021-05-15 Outpatient R [facility] [id number] Univers 09:45:00 09:45:00 RAHUL angel [facility] 2021-04-27 2021-04-27 [facility] 1.2.840.114 [id number] Univers 14:40:05 23:59:00 Encounter Rahul Dunne 350.1.13.10 ity of Surgical 4.2.7.2.686 Tony as Specialti [id number] Nh dical es 809 [facility] 2021-04-27 2021-04-27 Outpatient R [facility] [id number] Univers 16:00:00 16:00:00 RAHUL angel [facility] 2021-04-27 2021-04-27 Office [facility] 1.2.602.303 [id number] Univers 14:31:35 15:22:00 Visit Rahul Choudhary [facility] 350.1.13.10 it y of Surgical 4.2.7.2.686 Tony as Specialti [id number] Nh dical es 198 [facility] 2021-02-11 2021-02-11 [facility] 1.2.840.114 [id number] Univers 11:11:00 23:59:00 Encounter Rahul Choudhary RON 350.1.13.10 [place] [id number] [facility] 043 [place] 2021-02-11 2021-02-11 Outpatient R [facility] [id number] Univers 00:00:00 00:00:00 RAHUL caba [facility] 2021-02-11 2021-02-11 Orders Doctor KAILA 1.2.840.114 [id number] Univers 00:00:00 00:00:00 Only Unassigned, MECHE 350.1.13.10 ity of [place] [facility] 4.2.7.2.686 Tony as [id number] [facility] 009 [place] 2021-02-10 2021-02-10 [place] First Monty, Adc Lab Main [facility] 1.2.8 40.114 [id number] Univers 12:27:12 12:42:12 Visit Rahul Parra 350.1.13.10 ity of [place].2.686 [place] [facility] Edessio [id number] Nh dical nal 353 [facility] 2021-02-10 2021-02-10 [facility]patient [facility] [id number] Univers 12:30:00 12:30:00 RAHUL caba [facility] 2021-02-10 2021-02-10 Outpatient [facility] [id number] Univers 12:27:42 12:27:42 RAHUL gertrudis [facility] 2021-02-10 2021-02-10 [facility] 1.2.840.114 [id number] Univers 12:27:42 12:27:42 Encounter Rahul Funmi Stacy 350.1.13.10 ity of [place] 4[place].2.686 [place] [id number] [facility] 807 [place] 2021-02-09 2021-02-09 Telephone [facility] 1.2.840.114 [id number] Univers 00:00:00 00:00:00 Rahul Choudhary [facility] 350.1.13.10 it y of Surgical 4.2.7.2.686 Tony as Specialti [id number] Me dical es 198 [facility] 2021-02-09 2021-02-09 Orders Doctor BRIGHT 1.2.840.114 [id number] Univers 00:00:00 00:00:00 Only Unassigned, MECHE 350.1.13.10 ity of [place] [facility] 4.2.7.2.686 Tony as [id number] [address] 2021-02-05 2021-02-05 Office Aida [facility] 1.2.810.466 [id number] Univers 09:21:35 10:15:43 Visit Rahul Choudhary [facility] 350.1.13.10 it y of Surgical 4.2.7.2.686 Tony as Specialti [phone] Me dical es [address] [place] 2021-02-05 2021-02-05 Outpatient [facility] [id number] Univers 09:30:00 09:30:00 RAHUL ity of [facility] 2021-02-05 2021-02-05 Orders Doctor KAILA 1.2.840.114 [id number] 00:00:00 00:00:00 Only Unassigned, MECHE 350.1.13.10 ity of [place] [facility] 4.2.7.2.686 Tony as [id number] [address] Results Test Description Test Time Test Comments Results Result Comments Source POCT-GLUCOSE METER 2019-12-27 12:41:00 Test Item Value Reference Range Interpretation Comme nts POC-GLUCOSE METER (BEAKER) 146 mg/dL 70-110 H : TESTED AT [address] (test code = 1538) KAREN Mcgarry [address]: Lumber Stacker Operator/Techni sagar ID = [id number] for EDSON MCKEON Lynnette CBC W/PLT COUNT & AUTO [id number] 05:04:00 Test Item Value Reference Range Interpretation [...] 0-1 GRANULOCYTES-RELATIVE PERCENT (BEAKER) (test code = 2800) POCT-GLUCOSE [id number] 22:28:00 Test Item Value Reference Range Interpretation Comments POC-GLUCOSE METER 182 mg/dL 70-110 H : TESTED A T [facility] 6720 (BEAKER) (test code = [place], 1538) 87807: Lumber Stacker Operator/Techni sagar ID = [id number] for SURESH PAUL POCT-GLUCOSE [id number] 17:52:00 Test Item Value Reference Range Interpretation Comments POC-GLUCOSE METER 177 mg/dL 70-110 H : TESTED A T [facility] 6720 (BEAKER) (test code = [facility], 153) 99754: Lumber Stacker Operator/Techni sagar ID = [id number] for PRABHAKAR ORDOÑEZ POCT-GLUCOSE [id number] 08:26:00 Test Item Value Reference Range Interpretation Comments POC-GLUCOSE METER 124 mg/dL 70-110 H : TESTED A T [facility] 6720 (BEAKER) (test code = [facility], 1538) 20027: Lumber Stacker Operator/Techni sagar ID = [id number] for LORNE KEATING VITAMIN D, [id number] 05:15:00 Test Item Value Reference Range Interpretation Comments VITAMIN D 25-OH (BEAKER) (test code 7.0 ng/mL 6.6-49.9 = 2764) Effective 07/13/2017: Reference Range ChangeNew: 6.6-49.9 ng/mL Previous: 13.0- 47.8 ng/mLRecommendedVitamin D Target Range: 30.0-40.0 ng/mLOperator ID - AJ M POCT-GLUCOSE [id number] 18:08:00 Test Item Value Reference Range Interpretation Comments POC-GLUCOSE METER 130 mg/dL 70-110 H : TESTED A T [facility] 6720 (BEAKER) (test code = [facility], 153) 18680: Lumber Stacker Operator/Techni sagar ID = [id number] for LORNE KEATING HEMOGLOBIN AND [id number] 16:49:00 Test Item Value Reference Range Interpretation Comments HEMOGLOBIN (BEAKER) (test code = 9.9 GM/DL 11.2-15.7 L 410) HEMATOCRIT (BEAKER) (test code = 31.2 % 34.1-44.9 L 411) Lumber Stacker Operator ID - [id number]-GLUCOSE [id number] 09:56:00 Test Item Value Reference Range Interpretation Comments POC-GLUCOSE METER 130 mg/dL 70-110 H : TESTED A T [facility] 6720 (BEAKER) (test code = [facility], 153) 38284: Lumber Stacker Operator/Techni sagar ID = [id number] for ANNALISA ARNOLDO MAGUI BASIC METABOLIC [id number] 05:34:00 Test Item Value Reference Range Interpretation [...] S NOT APPLICABLE FOR DIALYSIS PATIEN TS. Lumber Stacker Operator ID - AJ [id number] (HEMOGRAM ONLY)2019-12-25 [...] 0-0 (BEAKER) (test code = 413) POCT-GLUCOSE [id number] 17:41:00 Test Item Value Reference Range Interpretation Comments POC-GLUCOSE METER 185 mg/dL 70-110 H : TESTED A T [facility] 6720 (BEAKER) (test code = [facility], 1538) 19139: Lumber Stacker Operator/Techni sagar ID = [id number] for DA VIS, KEYAIRA POCT-GLUCOSE [id number] 12:53:00 Test Item Value Reference Range Interpretation Comments POC-GLUCOSE METER 135 mg/dL 70-110 H : TESTED A T [facility] 6720 (BEAKER) (test code = [facility], 1538) 08079: Lumber Stacker Operator/Techni sagar ID = [id number] for DA VIS, KEYAIRA POCT-GLUCOSE [id number] 08:24:00 Test Item Value Reference Range Interpretation Comments POC-GLUCOSE METER 147 mg/dL 70-110 H : TESTED A T [facility] 6720 (BEAKER) (test code = [facility], 1538) 86821: Lumber Stacker Operator/Techni sagar ID = [id number] for DA VIS, KEYAIRA BASIC METABOLIC [id number] 04:44:00 Test Item Value Reference Range Interpretation [...] S NOT APPLICABLE FOR DIALYSIS PATIEN TS. Lumber Stacker Operator ID - [id number] LCBC (HEMOGRAM ONLY)2019-12-24 [...] 0-0 (BEAKER) (test code = 413) POCT-GLUCOSE [id number] 21:38:00 Test Item Value Reference Range Interpretation Comments POC-GLUCOSE METER 131 mg/dL 70-110 H : TESTED A T [facility] 6720 (BEAKER) (test code [facility], = 1538) 88368: Lumber Stacker Operator/Techni sagar ID = [id number] for ERICK LOGAN POCT-GLUCOSE [id number] 18:00:00 Test Item Value Reference Range Interpretation Comments POC-GLUCOSE METER 133 mg/dL 70-110 H : TESTED A T [facility] 6720 (BEAKER) (test code = [facility], 1538) 85240: Lumber Stacker Operator/Techni sagar ID = [id number] for CHRISTIANA COLEMAN POCT-GLUCOSE [id number] 16:08:00 Test Item Value Reference Range Interpretation Comments POC-GLUCOSE METER 128 mg/dL 70-110 H : TESTED A T [facility] 6720 (BEAKER) (test code = [facility], 1538) 08578: Lumber Stacker Operator/Techni sagar ID = [id number] for Margaret Weinstein [place], FLUORO, NON-SPECIFIC, UP TO 1 [id number] 16:04:00Reason for exam:- >femur fxFINAL REPORT A fluoroscopic unit was utilized for a procedure performed in the operating room. No interpretation was requested. Please refer to the operative report regarding findings. Please refer to PACS for patient radiation dose information. Signed: Oralia Garcia Verified Date/Time: 12/23/2019 16:04:47 Reading Location: [id number] Body Reading Room POCT-GLUCOSE [id number] 13:17:00 Test Item Value Reference Range Interpretation Comments POC-GLUCOSE METER 132 mg/dL 70-110 H : TESTED A T [facility] 6720 (BEAKER) (test code = [facility], 1538) 14102: Lumber Stacker Operator/Techni sagar ID = [id number] for JAC SAXENA POCT-GLUCOSE [id number] 05:50:00 Test Item Value Reference Range Interpretation Comments POC-GLUCOSE METER 130 mg/dL 70-110 H : TESTED A T [facility] 6720 (BEAKER) (test code = [facility], 1538) 14957: Lumber Stacker Operator/Techni sagar ID = [id number] for Cynthia Varner CT, EXTREMITY, LOWER WITHOUT CONTRAST, [id number] 23:04:00FINAL REPORT CLINICAL HISTORY: Right femur fracture COMPARISON: None. FINDINGS:Multiple axial images of the right femur were performed without IV contrast. Coronal and sagittal reformats were created. This exam was performed according to our departmental dose-optimization program, which includes automated exposure control, adjustment of the mA and/or kV according to patient sizeand/or use of the iterative reconstruction technique. There is a comminuted fracture of the distal femur extending from the distal metadiaphysis into the intercondylar notch. There is impaction and posterior medial displacement of the main fracture fragment. There is a small associated knee joint effusion. The intrinsic soft tissues of the knee appear intact. There is swelling surrounding the lateralcollateral ligament, which may relate to tissue trauma though ligamentous injury could be present. The hip joint is intact. There is scattered atherosclerotic calcification in the right lower extremity. There is no destructive bony lesion or radiopaque foreign body. IMPRESSION: Distal femur fracture with extension into the knee joint at the intercondylar notch. Posttraumatic soft tissue findings, as described. Signed: Mikayla Rich MDReport Verified Date/Time: 12/22/2019 23:04:49 [facility] [id number] 21:31:00 Test Item Value Reference Range Interpretation [...] S NOT APPLICABLE FOR DIALYSIS PATIEN TS. Lumber Stacker Operator ID - DBPOCT-GLUCOSE [id number] 21:25:00 Test Item Value Reference Range Interpretation Comments POC-GLUCOSE METER 162 mg/dL 70-110 H : TESTED A T [facility] 6720 (BEAKER) (test code = [facility] [place], 1538) [id number]: Lumber Stacker Operator/Techni sagar ID = [id number] for PATRICK MALDONADO PROTHROMBIN TIME/[id number] 21:20:00 Test Item Value Reference Range Interpretation [...] is 2.5-3.5 for patients wiht mechanical heart valves.CBC W/PLT COUNT & AUTO [id number] 21:17:00 Test Item Value Reference Range Interpretation [...] = 2801) RAD, FEMUR, MIN. 2 VIEWS, [id number] 20:35:00Reason for exam:->right femur fractureShould this be [...] fracture of the distal right femur. Signed: Mikayla Rich MDReport Verified Date/Time: 12/22/2019 20:35:26 RAD, PELVIS, 1 OR 2 VIEWS 2019-12-22 20:35:00Reason for exam:->fall with right femur fractureShould [...] fracture of the distal right femur. Signed: Mikayla Rich MDReport Verified Date/Time: 12/22/2019 20:35:26 POCT-GLUCOSE [id number] 18:26:00 Test Item Value Reference Range Interpretation Comments POC-GLUCOSE METER 175 mg/dL 70-110 H : TESTED A T [facility] 6720 (Lazarus EffectVICENTE) (test code = [facility] [place], 1538) 88749: Lumber Stacker Operator/Techni sagar ID = [id number] for Alisson MILLIGAN
[2022-08-16] MEDS ORDERED: NA CHLORIDE 0.9% 250 ML ONE (20:44)
[2022-08-16] MEDS ORDERED: NA CHLORIDE 0.9% 1,000 ML ONE (20:44)
[2022-08-16] MEDS ORDERED: VANCOMYCIN 1 GM/VIAL ONE (20:44)
[2022-08-16 21:08] LABS: Absolute Lymphocytes (CBC) 0.6 K/uL (0.7-4.9); Hematocrit 36.9 % (36.0-45.0); Lymphocytes % 4.2 % (15.3-44.8); MCV 79.5 fL (80-100); MPV 7.3 fL (7.6-11.3); RBC Red Blood Cell Count 4.65 M/uL (3.86-4.86)
[2022-08-16 21:11] LABS: Protime INR 1.04
[2022-08-16 21:19] LABS: BUN Blood Urea Nitrogen 21 mg/dL (7-18); Bicarbonate 27 mmol/L (21-32); Creatine Phosphokinase 49 U/L (26-192); Glomerular Filtration Rate 52 ml/min (=/>90); Glucose Level 155 mg/dL (74-106); Magnesium 2.2 mg/dL (1.8-2.4); NT PRO-BNP 247 pg/mL (<450); Sodium Level 141 mmol/L (136-145); Troponin High Sensitivity 7.8 pg/mL (<58.9)
[2022-08-16 21:30] LABS: CKMB Creatine Kinase MB < 1.0 ng/mL (1.0-3.6)
[2022-08-16 22:03] LABS: SARS-COV-2 RT PCR NEGATIVE (NEGATIVE)
[2022-08-16 22:23] LABS: Urine Mucus Slight /HPF (None Seen); Urine RBC <5 /HPF (None Seen)
--- NOTE | 2022-08-16 22:49 | RAD REPORT ---
EXAM DESCRIPTION: RAD - Chest Single View - 08/16/2022 9:40 pm CLINICAL HISTORY: Weakness Chest pain. COMPARISON: Chest Pa And Lat (2 Views) dated 12/23/2020; Chest Single View dated 12/22/2019; Chest Pa And Lat (2 Views) dated 06/19/2018; CHEST PA AND LAT 2 VIEW dated 05/03/2015 FINDINGS: Portable technique limits examination quality. The lungs are mildly emphysematous but grossly clear. Chronic blunting the left costophrenic angle portillo spected. The heart is mildly prominent in size. No displaced fractures. IMPRESSION: No acute intrathoracic process suspected.
[2022-08-16] MEDS ORDERED: CEFEPIME 2 GM VIAL ONE (23:02)
[2022-08-16] MEDS ORDERED: POTASSIUM CL SA 10 MEQ TAB PO ONE (23:02)
[2022-08-16] MEDS ORDERED: NA CHLORIDE 0.9% 100 ML IV ONE (23:03)
[2022-08-17 00:05] VITALS: BMI 29.5
--- NOTE | 2022-08-17 01:07 | EDPHYS ---
Physician Documentation [facility] Name: Yang Hernandez Age: 86 yrs Sex: Female : 1935 Arrival Date: 08/16/2022 Time: 19:52 Bed 17 Private MD: ED Physician Portillo Bedolla Historical: - Allergies: 08/16 19:00 Trimox; jb4 19:00 Tylox; jb4 - PMHx: 19:00 COPD; Lung Cancer; GERD; High Cholesterol; Diabetes - NIDDM; Depression; Hypertension; jb4 Vital Signs: 20:15 BP 108 / 62; Pulse 84; Resp 20; Pulse Ox 98% on R/A; jb4 21:45 BP 111 / 58; Pulse 82; Resp 20; Temp 98.7; Pulse Ox 99% on R/A; jb4 23:35 BP 112 / 78; Pulse 83; Resp 20; Pulse Ox 99% on R/A; jb4 MDM: 19:58 Patient medically screened. rt 22:19 Data reviewed: vital signs, nurses notes, old medical records, lab test result(s), EKG, rt radiologic studies. ED course: She presents to the ED with generalized weakness. She is found to be mildly tachycardic, otherwise stable vital signs. EKG is unremarkable. Patient found to have a leukocytosis with mildly low potassium. Potassium was repleted, broad-spectrum antibiotics were given as well as cultures. Patient given IV fluids. I discussed case with the patient's PMD who admit the patient for further care. Do not suspect CVA, ACS. No evidence of UTI on dipstick.. 22:20 ED course: See downtime charting paper chart for the rest of the documentation. rt 08/16 20:02 Order name: Basic Metabolic Panel [facility] 08/16 20:02 Order name: CBC with Diff [facility] 08/16 20:02 Order name: Magnesium [facility] 08/16 20:02 Order name: NT PRO-BNP [facility] 08/16 20:02 Order name: PT-INR [facility] 08/16 20:02 Order name: Troponin HS [facility] 08/16 20:02 Order name: Blood Culture Adult (2) [facility] 08/16 20:02 Order name: Lactate [facility] 08/16 20:02 Order name: Urine Culture [facility] 08/16 20:02 Order name: Urine Microscopic Only [facility] 08/16 20:02 Order name: CPK [facility] 08/16 20:02 Order name: Ckmb [facility] 08/16 22:43 Order name: SARS-COV-2 Antigen Rapid wm 08/17 00:59 Order name: Basic Metabolic Panel [facility] 08/16 20:02 Order name: XRAY Chest (1 view) 4 08/17 00:59 Order name: Creatine Phosphokinase [facility] 08/17 00:59 Order name: CKMB Creatine Kinase MB EDMS 08/17 00:59 Order name: Troponin High Sensitivity [facility] 08/17 00:59 Order name: NT PRO-BNP [facility] 08/17 00:59 Order name: Magnesium [facility] 08/17 00:59 Order name: CBC with Automated Diff [facility] 08/17 01:00 Order name: Protime (+INR) [facility] 08/17 01:00 Order name: COVID-19/FLU A+B [facility] 08/17 01:00 Order name: Urine Microscopic Only [facility] 08/17 01:01 Order name: RAD [facility] 08/17 05:22 Order name: Blood Culture [facility] 08/17 05:44 Order name: Lactate [facility] 08/17 07:33 Order name: Urine Culture [facility] 08/17 08:42 Order name: Lactate Sepsis 2 HR Follow-up [facility] 08/17 12:21 Order name: Glucose, Ancillary Testing [facility] 08/16 20:02 Order name: EKG; Complete Time: 04:52 [facility] 08/16 20:02 Order name: Cardiac monitoring; Complete Time: 20:38 [facility] 08/16 20:02 Order name: EKG - Nurse/Tech; Complete Time: 20:38 [facility] 08/16 20:02 Order name: IV Saline Lock; Complete Time: 20:38 [facility] 08/16 20:02 Order name: Labs collected and sent; Complete Time: 20:38 [facility] 08/16 20:02 Order name: O2 Per Protocol; Complete Time: 20:38 [facility] 08/16 20:02 Order name: O2 Sat Monitoring; Complete Time: 20:38 [facility] 08/16 20:02 Order name: Urine Dipstick-Ancillary (obtain specimen); Complete Time: 21:35 [facility] 08/17 10:16 Order name: [facility] 08/17 10:19 Order name: US EDMS Administered Medications: 21:00 Drug: NS 0.9% 1000 ml Route: IV; Rate: 1000 ml; Site: left forearm; jb4 21:08 Drug: vancoMYCIN 1 grams Route: IVPB; Infused Over: 2 hrs; Site: left forearm; jb4 23:21 Drug: Potassium Chloride Liquid 40 mEq Route: PO; jb4 23:32 Drug: Cefepime 2 grams Route: IVPB; Rate: 200 ml/hr; Infused Over: 30 mins; Site: left jb4 forearm; Disposition Summary: 08/16/22 22:18 Hospitalization Ordered Hospitalization Status: Observation rt Provider: Suresh Diaz rt Condition: Stable rt Problem: new rt Symptoms: are unchanged rt Bed/Room Type: Standard rt Location: Telemetry/MedSurg (observation)(08/17/22 15:12) bd Room Assignment: [facility](08/17/22 15:12) bd Diagnosis - Muscle weakness (generalized) rt - Cellulitis of abdominal wall rt Forms: - Medication Reconciliation Form rt - SBAR form rt Signatures: Dispatcher [employer] EDMS Demetra Martinez Cindy, RN RN Bradford Hogan RN RN jb4 Portillo Bedolla MD MD rt Corrections: (The following items were deleted from the chart) 22:46 22:18 Telemetry/MedSurg (observation) rt cg 22:46 22:18 rt cg 08/17 15:12 08/16 22:46 [facility] ER HOLD cg bd 08/17 15:12 08/16 22:46 ERHOLD- cg bd
--- NOTE | 2022-08-17 01:07 | ER ---
Nurse's Notes [facility] Name: Yang Hernandez Age: 86 yrs Sex: Female : 1935 Arrival Date: 08/16/2022 Time: 19:52 Bed 17 Private MD: Diagnosis: Muscle weakness (generalized);Cellulitis of abdominal wall Presentation: 08/16 19:00 Acuity: BALTAZAR 3 jb4 Historical: - Allergies: 19:00 Trimox; jb4 19:00 Tylox; jb4 - PMHx: 19:00 COPD; Lung Cancer; GERD; High Cholesterol; Diabetes - NIDDM; Depression; Hypertension; jb4 Screenin:00 Abuse screen: Denies threats or abuse. Nutritional screening: No deficits noted. jb4 Tuberculosis screening: No symptoms or risk factors identified. 19:00 Fall Risk IV access (20 points). Gait- Weak (10 pts.). Total [place] Fall Scale indicates jb4 Low Risk Score (25-44 pts). Fall prevention measures have been instituted. Side Rails Up X 2 Placed close to Nursing Station Frequent Obs/Assesments occuring Family Present and informed to notify staff if they need to leave bedside As available Patient and Family Educated on Fall Prevention Program and strategies. Assessment: 19:00 General: Appears in no apparent distress. uncomfortable, Behavior is calm, cooperative, jb4 appropriate for age. Pain: Denies pain. Neuro: Level of Consciousness is awake, alert, obeys commands, Oriented to person, place, time, situation. Cardiovascular: Patient's skin is warm and dry. Respiratory: Reports Lobectomy on left upper lobe. Airway is patent Respiratory effort is even, unlabored, Respiratory pattern is regular, symmetrical, Breath sounds are clear in right upper lobe, right middle lobe, left lower lobe and right lower lobe Breath sounds are absent in left upper lobe. GI: No signs and/or symptoms were reported involving the gastrointestinal system. : No signs and/or symptoms were reported regarding the genitourinary system. EENT: No signs and/or symptoms were reported regarding the EENT system. Derm: Skin is intact, Skin is pink, warm \T\ dry. Rash noted that is red, raised, on back and abdomen. Musculoskeletal: Circulation, motion, and sensation intact. Range of motion: intact in all extremities, Reports weakness in right leg and left leg. 20:00 Reassessment: Patient appears in no apparent distress at this time. Patient and/or jb4 family updated on plan of care and expected duration. Pain level reassessed. Patient is alert, oriented x 3, equal unlabored respirations, skin warm/dry/pink. 21:00 Reassessment: Patient appears in no apparent distress at this time. Patient and/or jb4 family updated on plan of care and expected duration. Pain level reassessed. Patient is alert, oriented x 3, equal unlabored respirations, skin warm/dry/pink. 22:00 Reassessment: Patient appears in no apparent distress at this time. Patient and/or jb4 family updated on plan of care and expected duration. Pain level reassessed. Patient is alert, oriented x 3, equal unlabored respirations, skin warm/dry/pink. 23:35 Reassessment: Patient appears in no apparent distress at this time. Patient and/or jb4 family updated on plan of care and expected duration. Pain level reassessed. Patient is alert, oriented x 3, equal unlabored respirations, skin warm/dry/pink. Vital Signs: 20:15 BP 108 / 62; Pulse 84; Resp 20; Pulse Ox 98% on R/A; jb4 21:45 BP 111 / 58; Pulse 82; Resp 20; Temp 98.7; Pulse Ox 99% on R/A; jb4 23:35 BP 112 / 78; Pulse 83; Resp 20; Pulse Ox 99% on R/A; jb4 ED Course: 19:00 Patient has correct armband on for positive identification. Placed in gown. Bed in low jb4 position. Call light in reach. Side rails up X 1. Client placed on continuous cardiac and pulse oximetry monitoring. NIBP monitoring applied. personnel monitor on. 19:52 Patient arrived in ED. mr 19:58 Bradford Almanzar RN is Primary Nurse. jb4 19:58 Portillo Bedolla MD is Attending Physician. rt 20:30 Inserted saline lock: 20 gauge in left forearm, using aseptic technique. unable to jb4 obtain blood sample. Lab called. 21:51 Triage completed. jb4 22:18 Suresh Diaz MD is Hospitalizing Provider. rt Administered Medications: 21:00 Drug: NS 0.9% 1000 ml Route: IV; Rate: 1000 ml; Site: left forearm; jb4 21:08 Drug: vancoMYCIN 1 grams Route: IVPB; Infused Over: 2 hrs; Site: left forearm; jb4 23:21 Drug: Potassium Chloride Liquid 40 mEq Route: PO; jb4 23:32 Drug: Cefepime 2 grams Route: IVPB; Rate: 200 ml/hr; Infused Over: 30 mins; Site: left jb4 forearm; Outcome: 22:18 Decision to Hospitalize by Provider. rt 08/17 01:00 Admitted to ER Hold. Please see [facility] for further documentation. jb4 Condition: stable Discharge instructions given to patient, family, Instructed on the need for admit, Demonstrated understanding of instructions. 15:53 Patient left the ED. jd3 Signatures: Justine Kelly James RN RN jb4 Jacinto Dodd RN RN jd3 Portillo Bedolla MD MD rt
[2022-08-17] MEDS ORDERED: INFLUENZA VACCINE (for 6+ mo) 0.5 ML DOSE IMVAC ONE (08:00)
--- NOTE | 2022-08-17 08:20 | EKG ---
Test Date: 2022-08-16 Test Time: 20:09:22 Employment And Claims Aide: TOM MEASUREMENT RESULTS: Intervals: Rate: 84 IA: 178 QRSD: 94 QT: 388 QTc: 458 [place]: P: 84 IA: 178 QRS: 45 T: 44 INTERPRETIVE STATEMENTS: Normal sinus rhythm Septal infarct, age undetermined Abnormal ECG Compared to ECG 12/23/2020 11:15:18 No significant changes Electronically Signed On 08-17-22 08:19:44 [employer] by Zay Melendrez
[2022-08-17] MEDS ORDERED: D50W 25 GM/50 ML SYRINGE IV PRN (10:08)
[2022-08-17] MEDS ORDERED: GLUCAGON 1 MG/VIAL IM PRN (10:08)
[2022-08-17] MEDS ORDERED: DEXTROSE 10%-WATER 125 ML IV PRN (10:13)
--- NOTE | 2022-08-17 10:15 | RAD REPORT ---
EXAM DESCRIPTION: US - Extrem Venous W Compress Nick - 08/17/2022 9:24 am CLINICAL HISTORY: weakness Bilateral leg edema and swelling. COMPARISON: Upper Lower Extrem Art Multi dated 01/05/2017 TECHNIQUE: Real-time sonographic interrogation of the left and right lower extremity deep venous sys tems was performed. FINDINGS: Normal compressibility, flow augmentation, phasic flow and spontaneous flow is identified in both the left and right lower extremity deep venous systems. IMPRESSION: No sonographic evidence of left or right lower extremity deep venous thrombosis.
--- NOTE | 2022-08-17 10:19 | RAD REPORT ---
EXAM DESCRIPTION: US - Lower Extremity Arterial Bilat - 08/17/2022 9:24 am CLINICAL HISTORY: weakness Leg pain and swelling COMPARISON: No comparisons TECHNIQUE: Bilateral lower extremity arterial Doppler examination was performed with waveform tracin g and velocity measurements. FINDINGS: Triphasic and biphasic waveforms are seen to the infrapopliteal level bilaterally. Right posterior ti bial artery is monophasic. Left dorsalis pedis artery is monophasic. No complete occlusion or high-grade stenosis evident. IMPRESSION: Mild distal infrapopliteal peripheral vascular disease is evident bilaterally.
[2022-08-17] MEDS: INSULIN -REGULAR HUMAN 50 UNIT/0.5 ML ML SQ SCH ×3 (11:30→22:10)
[2022-08-17] MEDS ORDERED: LOPERAMIDE HCL 2 MG CAPSULE PO PRN (15:45)
[2022-08-17] MEDS ORDERED: VANCOMYCIN 1.25 GM in NA CHLORIDE 0.9% 250 ML IVPB SCH (16:00)
[2022-08-17] MEDS ORDERED: METHYLPREDNISOLONE 40 MG INJ IV SCH (19:00)
[2022-08-17] MEDS ORDERED: FUROSEMIDE 40 MG/4 ML VIAL IV ONE (19:00)
--- NOTE | 2022-08-17 19:39 | RAD REPORT ---
EXAM DESCRIPTION: RAD - Chest Single View - 08/17/2022 7:17 pm CLINICAL HISTORY: SOB COMPARISON: Portable 08/16/2022 TECHNIQUE: AP portable chest image was obtained 08/17/2022 7:17 pm . FINDINGS: No acute right lung field finding. Interstitial pattern matches comparison. Postsurgical c hanges are present in the left lung field and posterior ribcage matching comparison. Elevation the le ft hemidiaphragm is present. An acute left lung field finding is not seen. Trachea is in the midline. Heart and vasculature are normal. No measurable pleural effusion and no pn eumothorax. No acute bony abnormality seen. No acute aortic findings suspected. IMPRESSION: No acute cardiopulmonary process. No significant change from comparison study.
[2022-08-17] MEDS ORDERED: levoFLOXacin 500 MG TAB PO SCH (20:00)
[2022-08-17] MEDS: ALBUTEROL 2.5 MG/3 ML NEB SOL NEB SCH ×2 (20:35)
[2022-08-17] MEDS ORDERED: ENOXAPARIN 80 MG/0.8 ML SQ SCH (20:37)
[2022-08-17 20:38] LABS: Potassium 3.1 mmol/L (3.5-5.1)
[2022-08-17 21:01] LABS: Arterial Blood Carboxyhemoglob 1.3 % (0-1.5); Blood Gas Oxyhemoglobin 90.3 % (94-97); Blood O2 Saturation 92.7 % (92-98.5)
[2022-08-17] MEDS: ENOXAPARIN 80 MG/0.8 ML SQ SCH (22:11)
[2022-08-17] MEDS: METHYLPREDNISOLONE 40 MG INJ IV SCH (23:57)
[2022-08-18] MEDS: ALBUTEROL 2.5 MG/3 ML NEB SOL NEB SCH ×6 (01:10→20:30)
--- NOTE | 2022-08-18 02:15 | HP ---
Date of Admission: 08/16/2022 Chief Complaint: Generalized weakness, found to have cellulitis on the abdomen. History Of Present Illness: Patient is an 86-year-old diabetic with a history of vascular disease, o besity, hypertension, osteoarthritis, decreased mobility, and chronic edema in the legs who comes in with weakness and was found to have cellulitis in the upper abdomen and white count of 14,000. She i s in the hospital now for treatment. Generally, she is stable otherwise. Past Medical History: As described above. Social History: Not a smoker. Does not consume alcohol. Medications: She has been given vancomycin from the emergency room. Physical Examination: General: This morning she was comfortable, lying in the bed, talking without any major distress. Vital Signs: Blood pressure 130/63, pulse is 88, respirations 25. HEENT: No JVD. No carotid bruits. Chest: Clear. Heart: Regular. This afternoon about 6 o'clock or so, I received a phone call from nurses that after vancomycin secon d dose, her body turned red and she became severely short of breath. So I came to see her in the aft ernoon and I examined her and on the pulmonary system, she has diffuse wheezing and tightness. There are no rales, no JVD and the redness of the face has improved after IV Solu-Medrol that I gave cali harvey order on the phone. Assessment And Plan: 1.Cellulitis in the upper abdomen. I will change the antibiotics to Levaquin once a day. She has r eceived vancomycin for today already. Start the medication tomorrow. 2.Vancomycin reaction, a red man reaction. She has received steroids and that should take care of t he reaction. She is getting every 6 hours steroids. Discussed with patient's daughter, who is at be dside. ABG is pending. 3.Diabetes mellitus. Continue fingersticks a.c. and at bedtime with aggressive sliding scale. 4.Prognosis is guarded. RVD/MODL Voice ID: [id number]
[2022-08-18] MEDS: METHYLPREDNISOLONE 40 MG INJ IV SCH (05:26)
[2022-08-18 05:55] LABS: Absolute Lymphocytes (CBC) 0.3 K/uL (0.7-4.9); Hematocrit 36.9 % (36.0-45.0); Lymphocytes % 4.7 % (15.3-44.8); MCV 78.4 fL (80-100); MPV 7.5 fL (7.6-11.3); RBC Red Blood Cell Count 4.71 M/uL (3.86-4.86)
[2022-08-18 06:09] LABS: Magnesium 1.8 mg/dL (1.8-2.4)
[2022-08-18 06:11] LABS: Potassium 2.9 mmol/L (3.5-5.1)
[2022-08-18] MEDS ORDERED: MAGNESIUM SULFATE 1 gm IVPB 1 GM/100 ML BAG IV ONE (06:34)
[2022-08-18] MEDS ORDERED: POTASSIUM CL SA 10 MEQ TAB PO ONE ×2 (06:35→21:00)
[2022-08-18 07:03] LABS: Blood Morphology Comment NOT SEEN (NOT SEEN); Platelet Estimate ADEQ
[2022-08-18] MEDS ORDERED: KCL 20 MEQ/100 mL IVPB 20 MEQ/100 ML BAG IV SCH (08:00)
--- NOTE | 2022-08-18 09:44 | RAD REPORT ---
EXAM DESCRIPTION: CT - Chest For Pe Angio - 08/18/2022 9:20 am CLINICAL HISTORY: Chest pain COMPARISON: 2014 TECHNIQUE: Dynamically enhanced axial 3 mm thick images of the chest were obtained during administra tion of <100> mL Isovue 370 IV contrast. Coronal and oblique reconstruction images were generated and reviewed. Exam utilizes a protocol for optimal evaluation of pulmonary arterial tree. Maximum intensity projections 3D imaging was utilized All CT scans are performed using dose optimization technique as appropriate and may include automated exposure control or mA/KV adjustment according to patient size. FINDINGS: A pulmonary embolus is not seen. A thoracic aortic aneurysm is not noted. A pleural effusion is not seen. A pericardial effusion is not seen. A lung consolidation is not present. Postsurgical changes involve the left lung IMPRESSION: Negative for a pulmonary embolism.
[2022-08-18] MEDS ORDERED: POTASSIUM 25 MEQ EFFERV TAB PO ONE (10:41)
[2022-08-18] MEDS: ENOXAPARIN 80 MG/0.8 ML SQ SCH (10:46)
[2022-08-18] MEDS: INSULIN -REGULAR HUMAN 50 UNIT/0.5 ML ML SQ SCH ×4 (10:46→21:52)
[2022-08-18 11:07] LABS: C.diff Antigen/Toxin Ag neg : Tox neg (NEG : NEG)
[2022-08-18] MEDS ORDERED: ENOXAPARIN 40 MG/0.4 ML SQ SCH (17:00)
--- NOTE | 2022-08-18 18:06 | P.PN ---
Subjective Date of Service: 08/18/22 Chief Complaint: FEELS A LOT BETTER. Subjective: Improving SHE HAD REACTION TO VANCOMYCIN YESTERADAY WITH SUDDEN SEVERE DYSPNEA, RED BODY COLOR CHANGE AND AFTER STEROIDS AND NEBS SHE IMPROVED WELL TO FEEL GREAT THIS AM. I STOPPED VANCOMYCIN AND CHANGED TO LEVAQIN. Physical Examination - Vital Signs Temperature: 97.1 F Blood Pressure: 132/70 Pulse: 89 Respirations: 20 Pulse Ox (%): 96 - Physical Exam General: Oriented x3, Mild distress HEENT: Atraumatic, PERRLA, EOMI Neck: Supple, JVD not distended Respiratory: Clear to auscultation bilaterally, Normal air movement Cardiovascular: Regular rate/rhythm, Normal S1 S2 Gastrointestinal: Normal bowel sounds, No tenderness Musculoskeletal: No tenderness Integumentary: No rashes Neurological: Normal speech, Normal tone, Normal affect Lymphatics: No axilla or inguinal lymphadenopathy - Studies Laboratory Data (last 24 hrs) 08/18/22 12:00: Potassium Cancelled 08/18/22 05:15: Sodium 141, Potassium 2.9 L*, BUN 20 H, Creatinine 1.12, Glucose 222 H, Magnesium 1.8 08/18/22 05:15: WBC 6.90, Hgb 12.1, Hct 36.9, Plt Count 276 08/17/22 20:01: Sodium 140, Potassium 3.1 L, BUN 17, Creatinine 0.97, Glucose 196 H Medications List Reviewed: Yes Assessment And Plan - Current Problems (Diagnosis) (1) Abdominal wall cellulitis Current Visit: Yes Status: Acute Plan: LEVAQUIN PO DOING BETTER ALREADY. (2) Diabetes Current Visit: Yes Status: Chronic Qualifiers: Diabetes mellitus type: type 2 (3) Vancomycin adverse reaction Current Visit: Yes Status: Acute Plan: SEVERE REACTION YESTERDAY IMPROVED Orders (last 24 hrs) 08/17/22 18:08 Oxygen Nasal Cannula 2 lpm 08/17/22 18:17 BiPAP/CPAP (RT) CONT 08/17/22 19:26 Magnesium Replacement 0600 Potassium Replacement 0600 08/17/22 20:00 Albuterol Neb [Proventil 0.083% Neb Soln] 2.5 mg NEB [id number] 08/17/22 21:05 Pulse Oximetry (RT) CONT 08/18/22 PT Consult [Physical Therapy Consult] Routine 08/18/22 03:33 SBAR Routine 08/18/22 21:00 levoFLOXacin [Levaquin] 750 mg PO Q48H 08/19/22 03:00 Vancomycin Level Trough Timed 08/19/22 05:00 Basic Metabolic Panel DAILY CBC with Automated Diff DAILY Magnesium Routine 08/19/22 09:00 Enoxaparin Sodium [Lovenox 40 MG INJ] 40 mg SQ DAILY 08/20/22 05:00 Basic Metabolic Panel DAILY CBC with Automated Diff DAILY 08/21/22 05:00 Basic Metabolic Panel DAILY CBC with Automated Diff DAILY 08/22/22 05:00 Basic Metabolic Panel DAILY CBC with Automated Diff DAILY 08/23/22 05:00 Basic Metabolic Panel DAILY CBC with Automated Diff DAILY 08/24/22 05:00 Basic Metabolic Panel DAILY CBC with Automated Diff DAILY AFTER URGENT INTERVENTIONS.
[2022-08-18] MEDS: HOME MED 1 EA UNK (Empagliflozin [Jardiance] 25 MG Tablet) PO SCH (21:00)
[2022-08-18] MEDS ORDERED: HOME MED 1 EA UNK (Simvastatin [Simvastatin] 20 MG Tablet) PO SCH (21:00)
[2022-08-18] MEDS: levoFLOXacin 750 MG TAB PO SCH (21:52)
[2022-08-18] MEDS: ATORVASTATIN 10 MG TAB PO SCH (21:52)
[2022-08-19] MEDS: ALBUTEROL 2.5 MG/3 ML NEB SOL NEB SCH ×4 (02:00→19:30)
[2022-08-19 03:41] LABS: Absolute Lymphocytes (CBC) 0.8 K/uL (0.7-4.9); Hematocrit 33.3 % (36.0-45.0); Lymphocytes % 8.1 % (15.3-44.8); MCV 78.7 fL (80-100); MPV 7.4 fL (7.6-11.3); RBC Red Blood Cell Count 4.23 M/uL (3.86-4.86)
[2022-08-19 03:49] LABS: Magnesium 2.3 mg/dL (1.8-2.4); Potassium 3.5 mmol/L (3.5-5.1)
[2022-08-19] MEDS: INSULIN -REGULAR HUMAN 50 UNIT/0.5 ML ML SQ SCH ×4 (07:30→21:26)
[2022-08-19] MEDS: PANTOPRAZOLE 40MG TABLET PO SCH (08:59)
[2022-08-19] MEDS: CLOPIDOGREL 75 MG TABLET PO SCH (08:59)
[2022-08-19] MEDS ORDERED: POTASSIUM CL SA 10 MEQ TAB PO ONE (09:00)
[2022-08-19] MEDS: MAXZIDE (HCTZ 25/TRIAMTERENE 37.5MG) TAB PO SCH (09:00)
[2022-08-19] MEDS ORDERED: HOME MED 1 EA UNK (Omeprazole [Prilosec] 40 MG Capsule.Dr) PO SCH (09:00)
[2022-08-19] MEDS: Umeclidinium Brm/Vilanterol Tr [Anoro Ellipta 62.5-25 Mcg Inh] Blst.W.D IH SCH (09:00)
[2022-08-19] MEDS: HOME MED 1 EA UNK (Empagliflozin [Jardiance] 25 MG Tablet) PO SCH ×2 (09:00→21:00)
[2022-08-19] MEDS: ENOXAPARIN 40 MG/0.4 ML SQ SCH (09:01)
[2022-08-19] MEDS: ATORVASTATIN 10 MG TAB PO SCH (21:25)
[2022-08-20] MEDS: ALBUTEROL 2.5 MG/3 ML NEB SOL NEB SCH ×4 (01:45→20:45)
[2022-08-20 04:15] LABS: Absolute Lymphocytes (CBC) 1.2 K/uL (0.7-4.9); Hematocrit 34.6 % (36.0-45.0); Lymphocytes % 21.2 % (15.3-44.8); MCV 79.1 fL (80-100); MPV 7.4 fL (7.6-11.3); RBC Red Blood Cell Count 4.38 M/uL (3.86-4.86)
[2022-08-20 04:31] LABS: Potassium 3.8 mmol/L (3.5-5.1)
[2022-08-20] MEDS: INSULIN -REGULAR HUMAN 50 UNIT/0.5 ML ML SQ SCH ×4 (07:30→20:50)
[2022-08-20] MEDS: MAXZIDE (HCTZ 25/TRIAMTERENE 37.5MG) TAB PO SCH (08:46)
[2022-08-20] MEDS: CLOPIDOGREL 75 MG TABLET PO SCH (08:47)
[2022-08-20] MEDS: PANTOPRAZOLE 40MG TABLET PO SCH (08:47)
[2022-08-20] MEDS: LOSARTAN POTASSIUM 50 MG TABLET PO SCH (08:48)
[2022-08-20] MEDS: ENOXAPARIN 40 MG/0.4 ML SQ SCH (08:48)
[2022-08-20] MEDS: HOME MED 1 EA UNK (Empagliflozin [Jardiance] 25 MG Tablet) PO SCH ×2 (08:48→20:51)
[2022-08-20] MEDS: Umeclidinium Brm/Vilanterol Tr [Anoro Ellipta 62.5-25 Mcg Inh] Blst.W.D IH SCH (08:49)
[2022-08-20] MEDS ORDERED: POTASSIUM CL SA 10 MEQ TAB PO ONE (09:00)
[2022-08-20] MEDS ORDERED: METHYLPREDNISOLONE 40 MG INJ IV SCH (09:00)
--- NOTE | 2022-08-20 13:56 | P.PN ---
Subjective Date of Service: 08/20/22 Chief Complaint: WHEEZES TODAY Subjective: New changes SHE HAD REACTION TO VANCOMYCIN YESTERADAY WITH SUDDEN SEVERE DYSPNEA, RED BODY COLOR CHANGE AND AFTER STEROIDS AND NEBS SHE IMPROVED WELL TO FEEL GREAT THIS AM. I STOPPED VANCOMYCIN AND CHANGED TO LEVAQIN. SHE WAS GREAT LASTNIGHT. GOT WORSE THIS AM. NO RASH. Review of Systems 10-point ROS is otherwise unremarkable General: Weakness Respiratory: Shortness of Breath Physical Examination - Vital Signs Temperature: 96.9 F Blood Pressure: 119/58 Pulse: 94 Respirations: 20 Pulse Ox (%): 98 - Physical Exam General: Oriented x3, Mild distress, Moderate distress, Obese HEENT: Atraumatic, PERRLA, EOMI Neck: Supple, JVD not distended Respiratory: Diminished, Inspiratory wheezes Cardiovascular: Regular rate/rhythm, Normal S1 S2 Gastrointestinal: Normal bowel sounds, No tenderness Musculoskeletal: No tenderness Integumentary: No rashes Neurological: Normal speech, Normal tone, Normal affect Lymphatics: No axilla or inguinal lymphadenopathy - Studies Medications List Reviewed: Yes Assessment And Plan - Current Problems (Diagnosis) (1) Abdominal wall cellulitis Current Visit: Yes Status: Acute Plan: LEVAQUIN PO DOING BETTER ALREADY. IMPROVED,WELL. (2) Diabetes Current Visit: Yes Status: Chronic Qualifiers: Diabetes mellitus type: type 2 (3) Vancomycin adverse reaction Current Visit: Yes Status: Acute Plan: SEVERE REACTION YESTERDAY IMPROVED Orders (last 24 hrs) 08/17/22 18:08 Oxygen Nasal Cannula 2 lpm 08/17/22 18:17 BiPAP/CPAP (RT) CONT 08/17/22 19:26 Magnesium Replacement 0600 Potassium Replacement 0600 08/17/22 20:00 Albuterol Neb [Proventil 0.083% Neb Soln] 2.5 mg NEB [id number] 08/17/22 21:05 Pulse Oximetry (RT) CONT 08/18/22 PT Consult [Physical Therapy Consult] Routine 08/18/22 03:33 SBAR Routine 08/18/22 21:00 levoFLOXacin [Levaquin] 750 mg PO Q48H 08/19/22 03:00 Vancomycin Level Trough Timed 08/19/22 05:00 Basic Metabolic Panel DAILY CBC with Automated Diff DAILY Magnesium Routine 08/19/22 09:00 Enoxaparin Sodium [Lovenox 40 MG INJ] 40 mg SQ DAILY 08/20/22 05:00 Basic Metabolic Panel DAILY CBC with Automated Diff DAILY 08/21/22 05:00 Basic Metabolic Panel DAILY CBC with Automated Diff DAILY 08/22/22 05:00 Basic Metabolic Panel DAILY CBC with Automated Diff DAILY 08/23/22 05:00 Basic Metabolic Panel DAILY CBC with Automated Diff DAILY 08/24/22 05:00 Basic Metabolic Panel DAILY CBC with Automated Diff DAILY AFTER URGENT INTERVENTIONS. SHE MAY HAVE DELYAED EFFECT OF VANCOMYCIN A REACTION WITH WHEEZES. STABLE BUT NEEDS TO STAY WITH IV STEROIDS ANDNEBS.
[2022-08-20] MEDS: METHYLPREDNISOLONE 40 MG INJ IV SCH ×2 (14:10→21:40)
[2022-08-20] MEDS: ACETAMINOPHEN 500 MG TAB PO PRN (14:11)
[2022-08-20 14:12] LABS: Urine Blood Negative (Negative); Urine Glucose 2+ (Negative); Urine Protein Negative (Negative); Urine Specific Gravity 1.015 (1.005-1.030)
[2022-08-20] MEDS: ATORVASTATIN 10 MG TAB PO SCH (20:51)
[2022-08-20] MEDS: levoFLOXacin 750 MG TAB PO SCH (21:39)
[2022-08-21] MEDS: METHYLPREDNISOLONE 40 MG INJ IV SCH ×4 (01:31→20:35)
[2022-08-21] MEDS: ALBUTEROL 2.5 MG/3 ML NEB SOL NEB SCH ×4 (01:55→20:00)
[2022-08-21] MEDS: ACETAMINOPHEN 500 MG TAB PO PRN (03:00)
[2022-08-21 06:44] LABS: Absolute Lymphocytes (CBC) 0.4 K/uL (0.7-4.9); Hematocrit 35.8 % (36.0-45.0); Lymphocytes % 5.9 % (15.3-44.8); MCV 78.8 fL (80-100); MPV 7.3 fL (7.6-11.3); RBC Red Blood Cell Count 4.54 M/uL (3.86-4.86)
[2022-08-21 06:54] LABS: Potassium 3.8 mmol/L (3.5-5.1)
[2022-08-21] MEDS: INSULIN -REGULAR HUMAN 50 UNIT/0.5 ML ML SQ SCH ×4 (07:43→20:35)
[2022-08-21] MEDS: ENOXAPARIN 40 MG/0.4 ML SQ SCH (08:45)
[2022-08-21] MEDS: MAXZIDE (HCTZ 25/TRIAMTERENE 37.5MG) TAB PO SCH (08:45)
[2022-08-21] MEDS: PANTOPRAZOLE 40MG TABLET PO SCH (08:46)
[2022-08-21] MEDS: LOSARTAN POTASSIUM 50 MG TABLET PO SCH (08:46)
[2022-08-21] MEDS: CLOPIDOGREL 75 MG TABLET PO SCH (08:46)
[2022-08-21] MEDS ORDERED: POTASSIUM CL SA 10 MEQ TAB PO ONE (09:00)
[2022-08-21] MEDS: Umeclidinium Brm/Vilanterol Tr [Anoro Ellipta 62.5-25 Mcg Inh] Blst.W.D IH SCH (09:00)
[2022-08-21] MEDS: HOME MED 1 EA UNK (Empagliflozin [Jardiance] 25 MG Tablet) PO SCH ×2 (09:00→20:34)
[2022-08-21] MEDS ORDERED: HYDROCORTISONE 1 % CREAM 30GM TOP PRN (12:00)
--- NOTE | 2022-08-21 13:12 | P.PN ---
Subjective Date of Service: 08/21/22 Chief Complaint: WHEEZES TODAY I was asked to see Ms. Hernandez for Dr. Diaz today. He will be back to see her tomorrow. No acute events overnight. She reports that she feels well. She states that her abdominal rash has nearly resolved. She states that the plan for her is to be placed into [facility] for Physical Therapy on 08/23/2022. She reports no concerns at this time. Review of Systems 10-point ROS is otherwise unremarkable General: Weakness (generalized) Physical Examination - Vital Signs Temperature: 97.3 F Blood Pressure: 150/76 Pulse: 83 Respirations: 16 Pulse Ox (%): 96 - Physical Exam General: Alert, In no apparent distress, Oriented x3 HEENT: Atraumatic, PERRLA, Mucous membr. moist/pink, EOMI, Sclerae nonicteric Neck: Supple, JVD not distended Respiratory: Clear to auscultation bilaterally, Normal air movement Cardiovascular: No edema, Regular rate/rhythm, Normal S1 S2, No gallops, No rubs, No murmurs Gastrointestinal: Normal bowel sounds, Soft and benign, Non-distended, No tenderness, No rebound, No guarding Musculoskeletal: No clubbing Integumentary: No rashes Neurological: Normal speech, Normal affect - Studies Medications List Reviewed: Yes Assessment And Plan - Plan # Severe Sepsis likely secondary to Abdominal Wall Cellulitis (improved) She previously met criteria based on HR > 90 bpm and WBC > 12,000, and the suspected source was cellulitis. Severe sepsis is suspected due to concern for tissue hypoperfusion/organ dysfunction based on lactic acid > 2 mmol/L. - No longer meets sepsis criteria at this time - Lactate trend: 3.1 -> 0.9 - Blood cultures drawn - Broad spectrum antibiotics started: Levofloxacin - In regards to fluids: - 30 mL/kg of IV fluids was not administered given SBP > 90, MAP > 65, lactic acid < 4 # Suspected Red Man Syndrome secondary to Vancomycin - Appears comfortable this morning, without flushing, wheezes, or rash - Continue methylprednisolone - Vancomycin placed on allergy list # Peripheral Artery Disease - Continue aspirin, atorvastatin, clopidogrel # Type II Diabetes Mellitus - Continue empgliflozin, correction scale insulin # Hypertension - Continue home triamterene-hydrochlorothiazide, losartan # Chronic Obstructive Pulmonary Disease - Does not appear to be in acute exacerbation - Continue home Anoro Ellipta # Gastroesophageal Reflux Disease - Continue pantoprazole Ms. Hernandez's care will be transferred back to Dr. Diaz at 06:00 AM on 08/22/2022. Sukhdeep Dowell M.D.
[2022-08-21] MEDS: ATORVASTATIN 10 MG TAB PO SCH (20:34)
[2022-08-21] MEDS: MELATONIN 5 MG TABLET PO PRN (23:36)
[2022-08-22] MEDS: ALBUTEROL 2.5 MG/3 ML NEB SOL NEB SCH ×4 (01:10→19:50)
[2022-08-22] MEDS: METHYLPREDNISOLONE 40 MG INJ IV SCH (01:24)
[2022-08-22 06:00] LABS: Absolute Lymphocytes (CBC) 0.4 K/uL (0.7-4.9); Hematocrit 37.8 % (36.0-45.0); Lymphocytes % 4.2 % (15.3-44.8); MCV 78.7 fL (80-100); MPV 7.4 fL (7.6-11.3); RBC Red Blood Cell Count 4.81 M/uL (3.86-4.86)
[2022-08-22 06:22] LABS: Potassium 3.8 mmol/L (3.5-5.1)
[2022-08-22] MEDS: ACETAMINOPHEN 500 MG TAB PO PRN (07:37)
[2022-08-22] MEDS: INSULIN -REGULAR HUMAN 50 UNIT/0.5 ML ML SQ SCH ×4 (08:13→21:00)
[2022-08-22] MEDS: ENOXAPARIN 40 MG/0.4 ML SQ SCH (08:14)
[2022-08-22] MEDS: Umeclidinium Brm/Vilanterol Tr [Anoro Ellipta 62.5-25 Mcg Inh] Blst.W.D IH SCH (08:15)
[2022-08-22] MEDS: predniSONE 20 MG TAB PO SCH (08:16)
[2022-08-22] MEDS: MAXZIDE (HCTZ 25/TRIAMTERENE 37.5MG) TAB PO SCH (08:16)
[2022-08-22] MEDS: CLOPIDOGREL 75 MG TABLET PO SCH (08:17)
[2022-08-22] MEDS: LOSARTAN POTASSIUM 50 MG TABLET PO SCH (08:17)
[2022-08-22] MEDS ORDERED: POTASSIUM CL SA 10 MEQ TAB PO ONE (09:00)
[2022-08-22 09:02] LABS: Blood Morphology Comment NOT SEEN (NOT SEEN); Platelet Estimate ADEQ; White Blood Cell Scan OK (OK)
[2022-08-22] MEDS: PANTOPRAZOLE 40MG TABLET PO SCH (09:34)
--- NOTE | 2022-08-22 12:45 | P.PN ---
Subjective Date of Service: 08/22/22 Chief Complaint: LOT BETTER Subjective: Improving SHE HAD REACTION TO VANCOMYCIN YESTERADAY WITH SUDDEN SEVERE DYSPNEA, RED BODY COLOR CHANGE AND AFTER STEROIDS AND NEBS SHE IMPROVED WELL TO FEEL GREAT THIS AM. I STOPPED VANCOMYCIN AND CHANGED TO LEVAQIN. SHE WAS GREAT LASTNIGHT. GOT WORSE THIS AM. NO RASH. SHE IS WEAK BUT NOT WHEEZES ANY LONGER. SHE NEEDS TO BE IN [facility] FOR PT. Review of Systems 10-point ROS is otherwise unremarkable Physical Examination - Vital Signs Temperature: 98.0 F Blood Pressure: 147/68 Pulse: 89 Respirations: 14 Pulse Ox (%): 94 - Physical Exam General: In no apparent distress, Obese HEENT: Atraumatic, PERRLA, EOMI Neck: Supple, JVD not distended Respiratory: Clear to auscultation bilaterally, Normal air movement Cardiovascular: Regular rate/rhythm, Normal S1 S2 Gastrointestinal: Normal bowel sounds, No tenderness Musculoskeletal: No tenderness Integumentary: No rashes Neurological: Normal speech, Normal tone, Normal affect Lymphatics: No axilla or inguinal lymphadenopathy - Studies Microbiology Data (last 24 hrs): 08/16/22 20:49 Blood - Blood Aerobic Blood Culture - Final No growth in 5 days. 08/16/22 20:49 Blood - Blood Anaerobic Blood Culture - Final No growth in 5 days. 08/16/22 20:17 Blood - Blood Aerobic Blood Culture - Final No growth in 5 days. 08/16/22 20:17 Blood - Blood Anaerobic Blood Culture - Final No growth in 5 days. Medications List Reviewed: Yes Assessment And Plan - Current Problems (Diagnosis) (1) Abdominal wall cellulitis Current Visit: Yes Status: Acute Plan: LEVAQUIN PO DOING BETTER ALREADY. IMPROVED,WELL. RESOLVED. (2) Diabetes Current Visit: Yes Status: Chronic Qualifiers: Diabetes mellitus type: type 2 (3) Vancomycin adverse reaction Current Visit: Yes Status: Acute Plan: SEVERE REACTION YESTERDAY IMPROVED Orders (last 24 hrs) 08/17/22 18:08 Oxygen Nasal Cannula 2 lpm 08/17/22 18:17 BiPAP/CPAP (RT) CONT 08/17/22 19:26 Magnesium Replacement 0600 Potassium Replacement 0600 08/17/22 20:00 Albuterol Neb [Proventil 0.083% Neb Soln] 2.5 mg NEB [id number] 08/17/22 21:05 Pulse Oximetry (RT) CONT 08/18/22 PT Consult [Physical Therapy Consult] Routine 08/18/22 03:33 SBAR Routine 08/18/22 21:00 levoFLOXacin [Levaquin] 750 mg PO Q48H 08/19/22 03:00 Vancomycin Level Trough Timed 08/19/22 05:00 Basic Metabolic Panel DAILY CBC with Automated Diff DAILY Magnesium Routine 08/19/22 09:00 Enoxaparin Sodium [Lovenox 40 MG INJ] 40 mg SQ DAILY 08/20/22 05:00 Basic Metabolic Panel DAILY CBC with Automated Diff DAILY 08/21/22 05:00 Basic Metabolic Panel DAILY CBC with Automated Diff DAILY 08/22/22 05:00 Basic Metabolic Panel DAILY CBC with Automated Diff DAILY 08/23/22 05:00 Basic Metabolic Panel DAILY CBC with Automated Diff DAILY 08/24/22 05:00 Basic Metabolic Panel DAILY CBC with Automated Diff DAILY AFTER URGENT INTERVENTIONS. SHE MAY HAVE DELYAED EFFECT OF VANCOMYCIN A REACTION WITH WHEEZES. STABLE BUT NEEDS TO STAY WITH IV STEROIDS ANDNEBS. TAPER STEROIDS SLOWER . STOP IV STEROIDS. PT CONSULT DONE.
[2022-08-22] MEDS: ATORVASTATIN 10 MG TAB PO SCH (21:28)
[2022-08-22] MEDS: levoFLOXacin 750 MG TAB PO SCH (21:28)
[2022-08-22] MEDS: MELATONIN 5 MG TABLET PO PRN (23:14)
[2022-08-23] MEDS: ALBUTEROL 2.5 MG/3 ML NEB SOL NEB SCH ×4 (02:00→19:25)
[2022-08-23] MEDS: ACETAMINOPHEN 500 MG TAB PO PRN (04:43)
[2022-08-23 06:18] LABS: Potassium 3.9 mmol/L (3.5-5.1)
[2022-08-23 07:08] LABS: Absolute Lymphocytes (CBC) 0.8 K/uL (0.7-4.9); Hematocrit 38.6 % (36.0-45.0); Lymphocytes % 9.2 % (15.3-44.8); MCV 78.6 fL (80-100); MPV 7.5 fL (7.6-11.3); RBC Red Blood Cell Count 4.92 M/uL (3.86-4.86)
[2022-08-23] MEDS: INSULIN -REGULAR HUMAN 50 UNIT/0.5 ML ML SQ SCH ×4 (07:30→20:38)
[2022-08-23] MEDS: predniSONE 20 MG TAB PO SCH (09:00)
[2022-08-23] MEDS: CLOPIDOGREL 75 MG TABLET PO SCH (09:00)
[2022-08-23] MEDS ORDERED: POTASSIUM CL SA 10 MEQ TAB PO ONE (09:00)
[2022-08-23] MEDS: ENOXAPARIN 40 MG/0.4 ML SQ SCH (09:00)
[2022-08-23] MEDS: LOSARTAN POTASSIUM 50 MG TABLET PO SCH (09:00)
[2022-08-23] MEDS: Umeclidinium Brm/Vilanterol Tr [Anoro Ellipta 62.5-25 Mcg Inh] Blst.W.D IH SCH (09:00)
[2022-08-23] MEDS: MAXZIDE (HCTZ 25/TRIAMTERENE 37.5MG) TAB PO SCH (09:00)
[2022-08-23] MEDS: PANTOPRAZOLE 40MG TABLET PO SCH (09:01)
[2022-08-23 10:03] LABS: Anisocytosis 1+; Blood Morphology Comment NOT SEEN (NOT SEEN); Hypochromasia 1+; Platelet Estimate ADEQ; Poikilocytosis 1+
[2022-08-23] MEDS: FLUCONAZOLE 100 MG TAB PO SCH (12:54)
--- NOTE | 2022-08-23 15:15 | PN ---
Subjective: Patient is feeling a lot better. Had no reaction to antibiotics anymore. Denies any ch est pain, nausea, or vomiting. Physical Examination: General: She is generally weak, not able to walk much since she has become ill in hospital. Vital Signs: Stable. Chest: Clear. Heart: Regular. Abdomen: No guarding. No rebound. No rigidity. The cellulitis in the upper abdominal region has i mproved significantly. Assessment And Plan: 1.Cellulitis with weakness. Continue Levaquin p.o. 2.Generalized weakness. Therapy is recommending physical therapy at some facility. She may not benjamín lify for rehab because she does not have any rehab related diagnosis, but she would possibly qualify for shelter facility with physical therapy. Otherwise, prognosis is fair. She should be able to go home tomorrow depending on the school social worker' s evaluation and performance with the insurance company. SARAH/BERT Voice ID: [id number] Report ID: [id number]
--- NOTE | 2022-08-23 17:47 | P.PN ---
Subjective Date of Service: 08/23/22 Chief Complaint: LOT BETTER Subjective: Improving SHE HAD REACTION TO VANCOMYCIN YESTERADAY WITH SUDDEN SEVERE DYSPNEA, RED BODY COLOR CHANGE AND AFTER STEROIDS AND NEBS SHE IMPROVED WELL TO FEEL GREAT THIS AM. I STOPPED VANCOMYCIN AND CHANGED TO LEVAQIN. SHE WAS GREAT LASTNIGHT. GOT WORSE THIS AM. NO RASH. SHE IS WEAK BUT NOT WHEEZES ANY LONGER. SHE NEEDS TO BE IN [facility] FOR PT. STILL NOT ABLE TO WALK. SHE WAS ON WALKER BEFORE. ITCHY GROINS. Physical Examination - Vital Signs Temperature: 97.0 F Blood Pressure: 163/86 Pulse: 74 Respirations: 16 Pulse Ox (%): 93 - Physical Exam General: In no apparent distress, Oriented x3, Obese HEENT: Atraumatic, PERRLA, EOMI Neck: Supple, JVD not distended Respiratory: Clear to auscultation bilaterally, Normal air movement Cardiovascular: Regular rate/rhythm, Normal S1 S2 Gastrointestinal: Normal bowel sounds, No tenderness Musculoskeletal: No tenderness Integumentary: No rashes Neurological: Normal speech, Normal tone, Normal affect Lymphatics: No axilla or inguinal lymphadenopathy - Studies Medications List Reviewed: Yes Assessment And Plan - Current Problems (Diagnosis) (1) Abdominal wall cellulitis Current Visit: Yes Status: Acute Plan: LEVAQUIN PO DOING BETTER ALREADY. IMPROVED,WELL. RESOLVED. (2) Diabetes Current Visit: Yes Status: Chronic Qualifiers: Diabetes mellitus type: type 2 (3) Vancomycin adverse reaction Current Visit: Yes Status: Acute Plan: SEVERE REACTION YESTERDAY IMPROVED Orders (last 24 hrs) 08/17/22 18:08 Oxygen Nasal Cannula 2 lpm 08/17/22 18:17 BiPAP/CPAP (RT) CONT 08/17/22 19:26 Magnesium Replacement 0600 Potassium Replacement 0600 08/17/22 20:00 Albuterol Neb [Proventil 0.083% Neb Soln] 2.5 mg NEB [id number] 08/17/22 21:05 Pulse Oximetry (RT) CONT 08/18/22 PT Consult [Physical Therapy Consult] Routine 08/18/22 03:33 SBAR Routine 08/18/22 21:00 levoFLOXacin [Levaquin] 750 mg PO Q48H 08/19/22 03:00 Vancomycin Level Trough Timed 08/19/22 05:00 Basic Metabolic Panel DAILY CBC with Automated Diff DAILY Magnesium Routine 08/19/22 09:00 Enoxaparin Sodium [Lovenox 40 MG INJ] 40 mg SQ DAILY 08/20/22 05:00 Basic Metabolic Panel DAILY CBC with Automated Diff DAILY 08/21/22 05:00 Basic Metabolic Panel DAILY CBC with Automated Diff DAILY 08/22/22 05:00 Basic Metabolic Panel DAILY CBC with Automated Diff DAILY 08/23/22 05:00 Basic Metabolic Panel DAILY CBC with Automated Diff DAILY 08/24/22 05:00 Basic Metabolic Panel DAILY CBC with Automated Diff DAILY AFTER URGENT INTERVENTIONS. SHE MAY HAVE DELYAED EFFECT OF VANCOMYCIN A REACTION WITH WHEEZES. STABLE BUT NEEDS TO STAY WITH IV STEROIDS ANDNEBS. TAPER STEROIDS SLOWER . STOP IV STEROIDS. PT CONSULT DONE. (4) Tinea cruris Current Visit: Yes Status: Acute Plan: TOPICAL MEDS DID NOT WORK. ORAL DIFLUCAN.
[2022-08-23] MEDS: ATORVASTATIN 10 MG TAB PO SCH (20:34)
[2022-08-23] MEDS: MELATONIN 5 MG TABLET PO PRN (23:14)
[2022-08-24] MEDS: ALBUTEROL 2.5 MG/3 ML NEB SOL NEB SCH ×3 (01:10→13:27)
[2022-08-24 06:41] LABS: Absolute Lymphocytes (CBC) 1.3 K/uL (0.7-4.9); Lymphocytes % 18.4 % (15.3-44.8); MCV 78.8 fL (80-100); MPV 7.3 fL (7.6-11.3); RBC Red Blood Cell Count 5.21 M/uL (3.86-4.86)
[2022-08-24 06:46] LABS: Potassium 4.1 mmol/L (3.5-5.1)
[2022-08-24] MEDS: INSULIN -REGULAR HUMAN 50 UNIT/0.5 ML ML SQ SCH ×2 (07:30→12:21)
[2022-08-24 08:36] VITALS: TEMP 96.8
[2022-08-24] MEDS ORDERED: predniSONE 10 MG TAB PO SCH (09:00)
[2022-08-24] MEDS: FLUCONAZOLE 100 MG TAB PO SCH (09:20)
[2022-08-24] MEDS: LOSARTAN POTASSIUM 50 MG TABLET PO SCH (09:20)
[2022-08-24] MEDS: Umeclidinium Brm/Vilanterol Tr [Anoro Ellipta 62.5-25 Mcg Inh] Blst.W.D IH SCH (09:20)
[2022-08-24] MEDS: ENOXAPARIN 40 MG/0.4 ML SQ SCH (09:20)
[2022-08-24] MEDS: PANTOPRAZOLE 40MG TABLET PO SCH (09:21)
[2022-08-24] MEDS: MAXZIDE (HCTZ 25/TRIAMTERENE 37.5MG) TAB PO SCH (09:21)
[2022-08-24] MEDS: CLOPIDOGREL 75 MG TABLET PO SCH (09:21)
[2022-08-24 10:46] LABS: Anisocytosis 1+; Blood Morphology Comment NOTED (NOT SEEN); Platelet Estimate ADEQ
[2022-08-24 10:47] LABS: Poikilocytosis 1+
[2022-08-24 13:59] VITALS: O2SAT 99
--- NOTE | 2022-08-24 14:00 | P.DS ---
Admission Date: 08/18/22 Discharge Date: 08/24/22 Disposition: TRANSFER TO SNF - MEDICAL Discharge Condition: FAIR Reason for Admission: LOT BETTER - Problems (1) Abdominal wall cellulitis Current Visit: Yes Status: Acute (2) Diabetes Current Visit: Yes Status: Chronic Qualifiers: Diabetes mellitus type: type 2 (3) Vancomycin adverse reaction Current Visit: Yes Status: Acute (4) Tinea cruris Current Visit: Yes Status: Acute Hospital Course: MS WILDE COMES IN FOR WEAKNESS, WE FOUND HER TO HAVE CELLULITIS OF ABDOMEN WALL, SHE HAD REACTION TO VANCOMYCIN WITH SEVERE WHEEZING AND RED MAN SYNDROME. WE TOOK CARE OF THIS WITH STERIODS AND NEBS. SHE ALSO HAD FUNGAL GROIN RASH FOR THAT SHE NEEDED DIFLUCAN. SHE DID WELL WITH LEVAQUIN FOR ABDOMEN WALL RASH. SHE IS NOW STABLE TO GO TO [facility] AND GET STRONGER. SHE WILL GO TODAY AFTER 5 DAYS DELAY FROM INSURANCE COMPANY. Vital Signs/Physical Exam: Temp Pulse Resp BP Pulse Ox 96.8 F 82 16 119/57 L 98 08/24/22 12:00 08/24/22 12:00 08/24/22 12:00 08/24/22 12:00 08/24/22 12:00 Laboratory Data at Discharge: WBC 7.00 K/uL (4.3-10.9) 08/24/22 06:21 Hgb 13.1 g/dL (12.0-15.0) 08/24/22 06:21 Hct 41.0 % (36.0-45.0) 08/24/22 06:21 Plt Count 240 K/uL (152-406) 08/24/22 06:21 PT 11.4 SECONDS (9.5-12.5) 08/16/22 20:17 INR 1.04 08/16/22 20:17 Sodium 141 mmol/L (136-145) 08/24/22 06:21 Potassium 4.1 mmol/L (3.5-5.1) 08/24/22 06:21 BUN 34 mg/dL (7-18) H 08/24/22 06:21 Creatinine 1.01 mg/dL (0.55-1.3) 08/24/22 06:21 Glucose 155 mg/dL (74-106) H 08/24/22 06:21 Magnesium 2.3 mg/dL (1.8-2.4) 08/19/22 03:09 Home Medications: Clopidogrel Bisulfate [Plavix] 75 mg PO DAILY 06/19/18 Omeprazole [Prilosec] 40 mg PO DAILY 06/19/18 Simvastatin 20 mg PO BEDTIME 06/19/18 Triamterene/Hydrochlorothiazid [Triamterene-Hctz 37.5-25 mg Tb] 0.5 tab PO DAILY 06/19/18 Umeclidinium Brm/Vilanterol Tr [Anoro Ellipta 62.5-25 Mcg INH] 1 puff IN DAILY 06/19/18 Empagliflozin [Jardiance] 0.5 tab PO BID 03/14/20 Losartan Potassium [Cozaar*] 50 mg PO DAILY 08/24/22 levoFLOXacin [Levaquin*] 750 mg PO Q48H tab 08/24/22 Followup: NONE,NONE [Primary Care Provider] -
[2022-08-24 16:25] VITALS: BP 115/62
== END 2022-08-24 16:43 | DRG 603 ==
LOC: ER 18:30 → ERHOLD 22:11 → 2ND 08-17 15:25 → OBSVTOIN 08-18 12:43
PROVIDERS: ADMIT Internal Medicine; ATTEND Internal Medicine
PROC: 5A09457 Assistance with Respiratory Ventilation, 24-96 Consecutive Hours, Continuous Positive Airway Pressure (ICD-10-PCS; principal; 2022-08-15)
DX: L03.311 Cellulitis of abdominal wall (principal); K21.9 Gastro-esophageal reflux disease without esophagitis; J44.9 Chronic obstructive pulmonary disease, unspecified; I10 Essential (primary) hypertension; E11.51 Type 2 diabetes mellitus with diabetic peripheral angiopathy without gangrene; B35.6 Tinea cruris; D72.829 Elevated white blood cell count, unspecified; T36.8X5A Adverse effect of other systemic antibiotics, initial encounter; R06.00 Dyspnea, unspecified; Z79.02 Long term (current) use of antithrombotics/antiplatelets; Z85.118 Personal history of other malignant neoplasm of bronchus and lung; Z79.899 Other long term (current) drug therapy; Z20.822 Contact with and (suspected) exposure to COVID-19
CPT/HCPCS: 0240U; 36415; 71045; 71275; 80048; 80202; 81003; 81015; 82550; 82553; 82805; 82947; 83605; 83735; 83880; 84132; 84484; 85025; 85379; 85610; 87040; 87086; 87088; 87324; 93005; 93925; 93970; 94660; 94760; 96374; 96375; 97116; 97161; 97165; 97530; 99285; G0378; J0692; J1650; J1815; J1940; J2920; J3370; J3475; J3480; J7030; J7050; J7512; J7613; Q9967; U0003

== ENCOUNTER 2023-04-01 06:53 | Day surgery (SDC) | payer OTHER ==
[2023-03-29 16:24] LABS: Absolute Lymphocytes (CBC) 1.1 K/uL (0.7-4.9); Hematocrit 38.8 % (36.0-45.0); Lymphocytes % 19.9 % (15.3-44.8); MCV 75.8 fL (80-100); MPV 7.5 fL (7.6-11.3); RBC Red Blood Cell Count 5.11 M/uL (3.86-4.86)
[2023-03-29 16:30] LABS: Potassium 3.5 mEq/L (3.5-5.1)
--- NOTE | 2023-03-29 17:50 | RAD REPORT ---
EXAM DESCRIPTION: [facility] Pa And Lat (2 Views)03/29/2023 4:19 pm CLINICAL HISTORY: pre op for surgery COMPARISON: Chest Single View dated 08/17/2022; Chest Single View dated 08/16/2022; Chest Pa And Lat (2 Views) dated 12/23/2020; Chest Single View dated 12/22/2019 TECHNIQUE: PA and lateral views of the chest. FINDINGS: The lungs are clear. Sequelae of COPD and postsurgical changes in the left lung again seen . No pneumothorax or effusion. The cardiomediastinal contours are unremarkable. IMPRESSION: No acute cardiopulmonary process. Stable findings as above.
--- NOTE | 2023-03-30 18:10 | EKG ---
Test Date: 2023-03-29 Test Time: 15:47:14 Spares Scheduler: FERNANDA MEASUREMENT RESULTS: Intervals: Rate: 83 MI: 180 QRSD: 90 QT: 402 QTc: 472 Mission: P: MI: 180 QRS: 73 T: 87 INTERPRETIVE STATEMENTS: Normal sinus rhythm with sinus arrhythmia Septal infarct, age undetermined Abnormal ECG Compared to ECG 08/16/2022 20:09:22 No significant changes Electronically Signed On 03-30-23 18:08:50 CDT by David Johnston
[2023-04-01] MEDS ORDERED: CEFAZOLIN SODIUM 1 GM/VIAL ONE (07:29)
[2023-04-01] MEDS ORDERED: NA CHLORIDE 0.9% 1,000 ML ONE (07:29)
[2023-04-01] MEDS ORDERED: LIDOCAINE 2% MPF 5 ML VIAL ONE (08:45)
[2023-04-01] MEDS ORDERED: propofoL 200 MG/20 ML VIAL IV ONE (08:45)
[2023-04-01] MEDS ORDERED: HYDROCODONE/APAP 5/325 MG TAB PO PRN (09:43)
--- NOTE | 2023-04-01 09:47 | P.OP ---
Date of Service: 04/01/23 Preop diagnosis: Nonhealing right leg wound, rule out skin cancer Postop diagnosis: Same, basal cell carcinoma with margins free Procedure performed: Wide excision right leg nonhealing wound 6 x 3 cm with layered closure Surgeon: Kelvin Fonseca MD Blueberry Grower: None Estimated blood loss: Minimal Specimen: Right leg mass Findings: As above Anesthesia: MAC Complications: None Drains: None Fluids and blood products: Nonapplicable Disposition: Recovery room Operative note: Patient brought to the OR and placed in supine position. MAC anesthesia begun. Patient prepped and draped in usual sterile fashion. Marcaine 0.5% infiltrated locally. 15 blade used to make a 6 x 3 cm incision to include a 2 cm raised nonhealing ulcer suspicious for skin cancer. Frozen section revealed basal cell carcinoma with margins free. Wound irrigated bleeding controlled cautery. Flaps created. 2-0 chromic used approximate subcutaneous tissue. 4-0 nylon used to close skin. Sterile dressing applied. Patient awakened and taken to recovery room in good general condition. CC: Dr. Diaz's office
[2023-04-01] MEDS ORDERED: HYDROCODONE/APAP 5/325 MG TAB ONE (10:21)
[2023-04-01 11:22] VITALS: BP 141/69; TEMP 97; O2SAT 99
== END 2023-04-01 10:55 | disposition home or self-care (01) ==
LOC: OR 06:53
PROVIDERS: ATTEND Surgery
PROC: 0JBN0ZZ Excision of Right Lower Leg Subcutaneous Tissue and Fascia, Open Approach (ICD-10-PCS; 2023-04-01)
PROC: 0JXN0ZB Transfer Right Lower Leg Subcutaneous Tissue and Fascia with Skin and Subcutaneous Tissue, Open Approach (ICD-10-PCS; principal; 2023-04-01 08:45)
DX: C44.712 Basal cell carcinoma of skin of right lower limb, including hip (principal)
CPT/HCPCS: 93005; 85025; 80048; 36415; 82947; 88331; 88332; 88305; 71046; 11606; J2704; J2001; J7030; J0690

== ENCOUNTER 2024-09-14 10:21 | Emergency (ER) | payer OTHER ==
[2024-09-14] MEDS ORDERED: KETOROLAC 30 MG/ML INJ ONE (10:53)
[2024-09-14] MEDS ORDERED: NA CHLORIDE 0.9% 500 ML ONE (10:53)
[2024-09-14 11:38] LABS: Absolute Eosinophils 0.2 K/uL (0-0.5); Absolute Lymphocytes (CBC) 0.9 K/uL (0.7-4.9); Absolute Monocytes 0.5 K/uL (0.1-1.3); Absolute Neutrophil 4.4 K/uL (1.8-8.0); Basophils % 0.1 % (0-1.3); Eosinophils % 3.4 % (0-4.4); Hematocrit 37.4 % (36.0-45.0); Hemoglobin 11.8 g/dL (12.0-15.0); Lymphocytes % 15.2 % (15.3-44.8); MCH 26.5 pg (27.0-35.0); MCHC 31.6 g/dL (32.0-36.0); MCV 83.7 fL (80-100); MPV 7.6 fL (7.6-11.3); Monocytes % 7.6 % (3.3-12.3); Neutrophils % 73.7 % (41.7-73.7); Platelets 225 thou/uL (152-406); RBC Red Blood Cell Count 4.47 M/uL (3.86-4.86); Red Cell Distribution Width 18.1 % (12.1-15.2)
--- NOTE | 2024-09-14 11:43 | RAD REPORT ---
EXAMINATION: CT HEAD WITHOUT CONTRAST CT CERVICAL SPINE WITHOUT CONTRAST CLINICAL INDICATION: Head and neck injury status post fall. Head and neck pain TECHNIQUE: Axial CT images from the skull base to the vertex without intravenous contrast. Axial CT i mages through the cervical spine were obtained without intravenous contrast. Sagittal and coronal reformatted images were created from the data set. Coronal and sagittal reformatted images were creat ed from the data set. One or more of the following dose reduction techniques were used: Automated exposure control, adjustment of the mA and/or kV according to patient size, and/or iterative reconstr uction. Unless otherwise specified, incidental findings do not require dedicated imaging follow-up. [id number]. Comparison: none FINDINGS: An intracranial bleed is not seen. Ventricles are normal in caliber. Mild to moderate low-density area paraventricular, deep and subcortical white matter likely ischemic changes secondary to small vessel disease. No extra-axial fluid collection. No fluid within the sinuses/mastoids No fracture or dislocation is seen involving the cervical spine. IMPRESSION: No acute intracranial abnormality noted A cervical fracture is not seen. If the patient continues to have symptoms to suggest acute HAND CROWN POUNCER/spinal pathology then MRI would be rec ommended
--- NOTE | 2024-09-14 11:51 | RAD REPORT ---
EXAM: Chest Abdomen Pelvis W Cont CLINICAL INDICATION: Chest and abdominal pain status post fall TECHNIQUE: CT chest, abdomen and pelvis was performed, with 100 cc Isovue-300 IV contrast, as per de partment protocol. Axial, sagittal and coronal reconstructions were obtained. One or more of the following dose reduction techniques were used: Automated exposure control, adjustment of the mA and/o r kV according to the patient size, and/or iterative reconstruction. Unless otherwise specified, incidental findings do not require dedicated imaging follow-up. [id number]. Oral contrast not given. This limits evaluation of the bowel. COMPARISON: None FINDINGS: A pulmonary contusion not seen. No mediastinal hematoma noted 2 cm hematoma medial right anterior chest wall hematoma upper chest. Moderately displaced fracture right third lateral rib. No pulmonary contusion. No significant pleural effusion. Liver, spleen, pancreas, adrenals, kidneys and bladder do not demonstrate an acute traumatic injury. The gallbladder is distended There is no evidence of diverticulitis IMPRESSION: Moderately displaced fracture right third rib. 2 cm hematoma medial right anterior chest wall hematoma upper chest. Gallbladder distention
--- NOTE | 2024-09-14 11:54 | RAD REPORT ---
Procedure: Chest Single View HISTORY: Chest pain COMPARISON: April 2024 FINDINGS: Moderately displaced fracture right rib. No pneumothorax seen. The lungs appear clear of acute infiltrate. No significant pleural effusion noted. The heart is normal size.
[2024-09-14 11:59] LABS: Albumin 3.2 g/dL (3.4-5.0); Alkaline Phosphatase 108 U/L (45-117); Anion Gap 7.5 mEq/L (5.0-15.0); BUN Blood Urea Nitrogen 17 mg/dL (7-18); Bicarbonate 25 mEq/L (21-32); Bilirubin Total 0.7 mg/dL (0.2-1.0); Globulin 3.3 g/dL (2.3-3.5); Glomerular Filtration Rate 65 ml/min (=/>90); Glucose Level 113 mg/dL (74-106); Potassium 3.5 mEq/L (3.5-5.1); Protein, Total 6.5 g/dL (6.4-8.2); Sodium Level 139 mEq/L (136-145)
[2024-09-14 12:01] LABS: ALT/SGPT < 14 U/L (13-56); AST/SGOT < 10 U/L (15-37)
[2024-09-14 12:19] LABS: Calcium Oxalate Crystals- Ur Few /HPF (None Seen); Sqamous Epithelial <5 /HPF (None Seen); Urine Bacteria None Seen /HPF (<20); Urine Bilirubin NEGATIVE (Negative); Urine Blood Trace (Negative); Urine Clarity Turbid (Clear); Urine Color Light-Yellow (Yellow); Urine Culture Reflex Order REFLEXED; Urine Glucose 4+ (Over) (Negative); Urine Ketones 1+ (Negative); Urine Microscopic Reflex YN ORDER UMIC; Urine Mucus Slight /HPF (None Seen); Urine Nitrite NEGATIVE (Negative); Urine Protein NEGATIVE (Negative); Urine RBC 21-50 /HPF (None Seen); Urine Urobilinogen Normal (Normal); Urine Yeast (Budding) Trace /HPF (None Seen); Urine pH 5.5 (5.0-7.0)
[2024-09-14 12:22] LABS: Specific Gravity ND (1.005-1.030)
--- NOTE | 2024-09-14 12:42 | ER ---
Nurse's Notes [facility] Name: Yang Hernandez Age: 88 yrs Sex: Female : 1935 Arrival Date: 09/14/2024 Time: 10:21 Bed 17 Private MD: Diagnosis: Fall on same level, unspecified;Fracture of one rib, right side-right 3rdright upper chest wall hematoma;UTI/ Urinary tract infection, site not specified Presentation: 09/14 10:28 Chief complaint: EMS states: they were toned out for "right side pain" s/p fall x10 kc6 days ago. pt denies LOC but takes Plavix daily. upon EMS arrival pt reports pain under the right arm. Coronavirus screen: At this time, the client does not indicate any symptoms associated with coronavirus-19. Ebola Screen: No symptoms or risks identified at this time. Initial Sepsis Screen: Does the patient meet any 2 criteria? No. Patient's initial sepsis screen is negative. Does the patient have a suspected source of infection? No. Patient's initial sepsis screen is negative. Risk Assessment: Do you want to hurt yourself or someone else? Patient reports no desire to harm self or others. Onset of symptoms was September 03, 2024. Care prior to arrival: Medication(s) given: Fentanyl 50mcg IV IV initiated. 20 GA, in the left wrist. 10:28 Method Of Arrival: EMS: [facility] kc6 10:28 Acuity: BALTAZAR 4 kc6 Historical: - Allergies: 10:30 Trimox; kc6 10:30 Tylox; kc6 10:30 Vancomycin; kc6 - PMHx: 10:30 COPD; Depression; Diabetes - NIDDM; GERD; High Cholesterol; Hypertension; Lung Cancer; kc6 breast cancer (Lung Cancer); - Immunization history:: Adult Immunizations up to date. - Infectious Disease History:: Denies. - Social history:: Smoking status: Patient/guardian denies using tobacco, but has a distant history of tobacco abuse. Screenin:31 [facility] [place] ED Fall Risk Assessment (Adult) History of falling in the last 3 months, kc6 including since admission Yes- single mechanical fall (1 pt) Confusion or Disorientation No (0 pts) Intoxicated or Sedated No (0 pts) Impaired Gait Yes (1 pt) Mobility Assist Device Used Yes (1 pt) Altered Elimination No (0 pt) Score/Fall Risk Level 3 or more points = High Risk Oriented to surroundings, Maintained a safe environment, Educated pt \\T\\ family on fall prevention, incl call for assistance when getting out of bed. Abuse screen: Denies threats or abuse. Denies injuries from another. Nutritional screening: No deficits noted. Tuberculosis screening: No symptoms or risk factors identified. Assessment: 10:31 General: Appears in no apparent distress. comfortable, well groomed, well developed, kc6 Behavior is calm, cooperative, appropriate for age. Pain: Complains of pain in right arm. Neuro: Level of Consciousness is awake, alert, obeys commands, Oriented to person, place, time, situation, Appropriate for age. Cardiovascular: Capillary refill < 3 seconds. Respiratory: Airway is patent Trachea midline Respiratory effort is even, unlabored, Respiratory pattern is regular, symmetrical. GI: No signs and/or symptoms were reported involving the gastrointestinal system. : No signs and/or symptoms were reported regarding the genitourinary system. EENT: No signs and/or symptoms were reported regarding the EENT system. Derm: Skin is intact, is healthy with good turgor, Skin is pink, warm \\T\\ dry. Bruising that is green, yellow, on right eye. Musculoskeletal: Circulation, motion, and sensation intact. Capillary refill < 3 seconds, Range of motion: intact in all extremities. 11:36 Reassessment: Patient appears in no apparent distress at this time. No changes from kc6 previously documented assessment. Patient and/or family updated on plan of care and expected duration. Pain level reassessed. Patient is alert, oriented x 3, equal unlabored respirations, skin warm/dry/pink. 12:34 Reassessment: Patient appears in no apparent distress at this time. No changes from kc6 previously documented assessment. Patient and/or family updated on plan of care and expected duration. Pain level reassessed. Patient is alert, oriented x 3, equal unlabored respirations, skin warm/dry/pink. Vital Signs: 10:28 BP 174 / 86; Pulse 78; Resp 18 S; Temp 98.8(O); Pulse Ox 96% on R/A; Weight 77.11 kg kc6 (R); Height 5 ft. 4 in. (R); 11:36 BP 185 / 79; Pulse 80; Resp 18 S; Pulse Ox 97% on R/A; kc6 12:34 BP 170 / 74; Pulse 78; Resp 17 S; Pulse Ox 96% on R/A; kc6 10:28 Body Mass Index 29.18 (77.11 kg, 162.56 cm) kc6 Blanca Coma Score: 11:50 Eye Response: spontaneous(4). Motor Response: obeys commands(6). Verbal Response: angelica oriented(5). Total: 15. ED Course: 10:27 Patient arrived in ED. kc6 10:30 Triage completed. kc6 10:30 Isacc Parks MD is Attending Physician. angelica 10:30 Arm band placed on. kc6 10:31 Patient has correct armband on for positive identification. Bed in low position. Call kc6 light in reach. Side rails up X2. Adult w/ patient. Pulse ox on. NIBP on. Door closed. Noise minimized. Lights dimmed. Pillow given. 10:31 Maintain EMS IV. Dressing intact. Good blood return noted. Site clean \\T\\ dry. Gauge \\T\\ kathie 6 site: 20G LWRIST. Flushed with 10 mL NS. Patient maintains SpO2 saturation greater than 95% on room air. 10:32 Grisel Okeefe, RN is Primary Nurse. kc6 10:53 Comprehensive Metabolic Panel Sent. nh2 10:53 CBC with Diff Sent. nh2 11:02 Chest Single View XRAY In Process Unspecified. EDMS 11:04 CT Head C Spine In Process Unspecified. EDMS 11:04 CT Chest, Abdomen, Pelvis - W/Contrast In Process Unspecified. EDMS 11:46 Assisted to bedside commode. kc6 Administered Medications: 11:24 Drug: NS 0.9% IV 500 ml IV at bolus once; to be given as a bolus over 30 minutes Route: kc6 IV; Rate: bolus; Site: left wrist; 11:49 Follow up: Response: No adverse reaction; IV Status: Completed infusion; IV Intake: kc6 500ml 11:24 Drug: Ketorolac IVP 15 mg IVP once Route: IVP; Site: left wrist; kc6 11:49 Follow up: Response: No adverse reaction; Pain is decreased kc6 13:10 Drug: Rocephin IV 1 grams IV at per protocol once; Given slow IV push per pharmacy kc6 instructions Route: IV; Rate: per protocol; Site: left antecubital; 13:10 Drug: Cefdinir PO 300 mg PO once Route: PO; kc6 Intake: 11:49 IV: 500ml; Total: 500ml. kc6 Outcome: 12:42 Discharge ordered by MD. dominguez 13:43 Patient left the ED. ko1 Signatures: Dispatcher [employer] EDIsacc Olivas MD MD cha Campbell, Kaitlyn, RN RN kc6 Marina Esposito RN RN ko1 Partha Shah, Santhosh nh2
--- NOTE | 2024-09-14 12:42 | EDPHYS ---
Physician Documentation [facility] Name: Yang Hernandez Age: 88 yrs Sex: Female : 1935 Arrival Date: 09/14/2024 Time: 10:21 Bed 17 Private MD: ED Physician Isacc Parks HPI: 09/14 11:47 This 88 yrs old Female presents to ER via EMS with complaints of Fall Injury. angelica 11:47 Details of fall: The patient fell from an upright position, while walking. Onset: The angelica symptoms/episode began/occurred 10 day(s) ago. Associated injuries: The patient sustained injury to the head. Severity of symptoms: At their worst the symptoms were mild, moderate, in the emergency department the symptoms are unchanged. The patient has not experienced similar symptoms in the past. Historical: - Allergies: 10:30 Trimox; kc6 10:30 Tylox; kc6 10:30 Vancomycin; kc6 - PMHx: 10:30 COPD; Depression; Diabetes - NIDDM; GERD; High Cholesterol; Hypertension; Lung Cancer; kc6 breast cancer (Lung Cancer); - Immunization history:: Adult Immunizations up to date. - Infectious Disease History:: Denies. - Social history:: Smoking status: Patient/guardian denies using tobacco, but has a distant history of tobacco abuse. ROS: 11:47 Constitutional: Negative for fever, chills, and weight loss, Eyes: Negative for injury, angelica pain, redness, and discharge, ENT: Negative for injury, pain, and discharge, Neck: Negative for injury, pain, and swelling, Cardiovascular: Negative for chest pain, palpitations, and edema, Abdomen/GI: Negative for abdominal pain, nausea, vomiting, diarrhea, and constipation, Back: Negative for injury and pain, : Negative for injury, bleeding, discharge, and swelling, MS/Extremity: Negative for injury and deformity, Skin: Negative for injury, rash, and discoloration, Neuro: Negative for headache, weakness, numbness, tingling, and seizure, Psych: Negative for depression, anxiety, suicide ideation, homicidal ideation, and hallucinations, Allergy/Immunology: Negative for hives, rash, and allergies, Endocrine: Negative for neck swelling, polydipsia, polyuria, polyphagia, and marked weight changes, Hematologic/Lymphatic: Negative for swollen nodes, abnormal bleeding, and unusual bruising, 11:47 Respiratory: Positive for shortness of breath, on exertion. Exam: 11:47 Constitutional: This is a well developed, well nourished patient who is awake, alert, angelica and in no acute distress. Eyes: Pupils equal round and reactive to light, extra-ocular motions intact. Lids and lashes normal. Conjunctiva and sclera are non-icteric and not injected. Cornea within normal limits. Periorbital areas with no swelling, redness, or edema. ENT: Nares patent. No nasal discharge, no septal abnormalities noted. Tympanic membranes are normal and external auditory canals are clear. Oropharynx with no redness, swelling, or masses, exudates, or evidence of obstruction, uvula midline. Mucous membranes moist. Neck: Trachea midline, no thyromegaly or masses palpated, and no cervical lymphadenopathy. Supple, full range of motion without nuchal rigidity, or vertebral point tenderness. No Meningismus. Cardiovascular: Regular rate and rhythm with a normal S1 and S2. No gallops, murmurs, or rubs. Normal PMI, no JVD. No pulse deficits. Respiratory: Lungs have equal breath sounds bilaterally, clear to auscultation and percussion. No rales, rhonchi or wheezes noted. No increased work of breathing, no retractions or nasal flaring. Abdomen/GI: Soft, non-tender, with normal bowel sounds. No distension or tympany. No guarding or rebound. No evidence of tenderness throughout. Back: No spinal tenderness. No costovertebral tenderness. Full range of motion. Female : Normal external genitalia. Skin: Warm, dry with normal turgor. Normal color with no rashes, no lesions, and no evidence of cellulitis. MS/ Extremity: Pulses equal, no cyanosis. Neurovascular intact. Full, normal range of motion., bilateral aka Neuro: Awake and alert, GCS 15, oriented to person, place, time, and situation. Cranial nerves II-XII grossly intact. Motor strength 5/5 in all extremities. Sensory grossly intact. Cerebellar exam normal. Normal gait. Psych: Awake, alert, with orientation to person, place and time. Behavior, mood, and affect are within normal limits. 11:47 Head/face: Noted is contusion, that is deep, of the right eye and right cheek, 11:47 Chest/axilla: Inspection: normal, Palpation: tenderness, that is moderate, of the anterior aspect of right upper chest, right lateral posterior chest, right lateral anterior chest and right breast, 11:47 Musculoskeletal/extremity: ROM: intact in all extremities, full active range of motion, full passive range of motion, Circulation is intact in all extremities. Sensation intact. Compartment Syndrome exam of affected extremity: is normal. Weight bearing: able to fully bear weight, DVT Exam: No signs of deep vein thrombosis. no pain, no swelling, no tenderness, negative Homans' sign noted on exam, no appreciated bluish discoloration, no erythema, no increased warmth, Vital Signs: 10:28 BP 174 / 86; Pulse 78; Resp 18 S; Temp 98.8(O); Pulse Ox 96% on R/A; Weight 77.11 kg kc6 (R); Height 5 ft. 4 in. (R); 11:36 BP 185 / 79; Pulse 80; Resp 18 S; Pulse Ox 97% on R/A; kc6 12:34 BP 170 / 74; Pulse 78; Resp 17 S; Pulse Ox 96% on R/A; kc6 10:28 Body Mass Index 29.18 (77.11 kg, 162.56 cm) kc6 Axson Coma Score: 11:50 Eye Response: spontaneous(4). Motor Response: obeys commands(6). Verbal Response: angelica oriented(5). Total: 15. MDM: 10:30 Medical Screening Exam initiated angelica 11:50 Differential diagnosis: Contusion of Hematoma on Intracranial bleed- Concussion without angelica LOC. cerebral contusion, Blunt Chest Trauma Chest Wall Contusion Chest Wall Injury Pleural Effusion Pneumothorax Pulmonary Contusion Rib Fracture. Differential Diagnosis altered mental status, sepsis, flu. Differential diagnosis: closed head injury, contusion, fracture, multiple trauma, sprain, strain. Data reviewed: vital signs, nurses notes, lab test result(s), EKG, radiologic studies, CT scan, plain films. Consideration of Admission/Observation Patient was admitted/placed on observation. Escalation of care including admission/observation considered. I considered the following discharge prescriptions or medication management in the emergency department Pain Medications: At this time, prescription pain medications are not recommended, Medications were administered in the Emergency Department. See MAR. Independent interpretation of the following test(s) in the Emergency Department CT Scan: My interpretation is ct trauma . Historians other than the Patient: Family Member: daughter well informed. Counseling: I had a detailed discussion with the patient and/or guardian regarding the historical points, exam findings, and any diagnostic results supporting the discharge/admit diagnosis, lab results, radiology results. 09/14 10:40 Order name: CBC with Diff [facility] 09/14 10:40 Order name: Comprehensive Metabolic Panel; Complete Time: 12:38 [facility] 09/14 10:40 Order name: Urinalysis w/ reflexes; Complete Time: 12:38 [facility] 09/14 12:25 Order name: Urine Culture [facility] 09/14 12:46 Order name: CREATININE WHOLE BLOOD [facility] 09/14 12:58 Order name: CBC Smear Scan [facility] 09/14 10:40 Order name: CT Head C Spine; Complete Time: 11:46 [facility] 09/14 10:40 Order name: CT Chest, Abdomen, Pelvis - W/Contrast; Complete Time: 11:54 [facility] 09/14 10:40 Order name: Chest Single View XRAY; Complete Time: 11:54 [facility] 09/14 11:06 Order name: Labs - recollect needed: recollect green top and lavender top per Candice eb blood is grossly hemolyzed; Complete Time: 11:24 Administered Medications: 11:24 Drug: NS 0.9% IV 500 ml IV at bolus once; to be given as a bolus over 30 minutes Route: kc6 IV; Rate: bolus; Site: left wrist; 11:49 Follow up: Response: No adverse reaction; IV Status: Completed infusion; IV Intake: kc6 500ml 11:24 Drug: Ketorolac IVP 15 mg IVP once Route: IVP; Site: left wrist; kc6 11:49 Follow up: Response: No adverse reaction; Pain is decreased kc6 13:10 Drug: Rocephin IV 1 grams IV at per protocol once; Given slow IV push per pharmacy kc6 instructions Route: IV; Rate: per protocol; Site: left antecubital; 13:10 Drug: Cefdinir PO 300 mg PO once Route: PO; kc6 Disposition Summary: 09/14/24 12:42 Discharge Ordered Notes: Location: Home angelica Problem: new angelica Symptoms: have improved angelica Condition: Stable angelica Diagnosis - Fall on same level, unspecified angelica - Fracture of one rib, right side - right 3rdright upper chest wall hematoma angelica - UTI/ Urinary tract infection, site not specified angelica Followup: angelica - With: Private Physician - When: 2 - 3 days - Reason: Recheck today's complaints, Continuance of care, Re-evaluation by your physician Discharge Instructions: - Discharge Summary Sheet angelica - Dysuria angelica - Hematoma angelica - Hematoma, [id number] angelica - Rib Fracture angelica - Urinary Tract Infection, Adult angelica - How to Use an Incentive Spirometer angelica - Urinary Tract Infection, Adult, [id number] angelica - Rib Fracture, [id number] angelica - Incentive Spirometer Record [facility] Forms: - Medication Reconciliation Form angelica - Antibiotic Education angelica - Prescription Opioid Use angelica - Patient Portal Instructions [facility] - Leadership Thank You Letter [facility] Prescriptions: - acetaminophen-codeine 300-30 mg Oral tablet - take 1 tablet ORAL route every 4 to 6 hours as needed for pain; 20 tablet; angelica Refills: 0, Product Selection Permitted - cefdinir 300 mg Oral capsule - take 1 capsule ORAL route every 12 hours; 14 capsule; Refills: 0, Product [facility] Selection Permitted - Motrin IB 200 mg Oral tablet - take 2 tablet ORAL route every 6 hours As needed as needed with food; 30 angelica tablet; Refills: 0, Product Selection Permitted Signatures: Dispatcher [employer] EDIsacc Olivas MD MD cha Botello, Elizabeth eb Campbell, Kaitlyn RN RN kc6 Corrections: (The following items were deleted from the chart) 10:41 10:41 Chest Abdomen Pelvis W Con+CT.RAD.BRZ ordered. EDMS EDMS 10:41 10:41 IS+RC.RAD.BRZ ordered. EDMS EDMS 10:41 10:41 Chest Single View+RAD.RAD.BRZ ordered. EDMS EDMS
[2024-09-14] MEDS ORDERED: CEFTRIAXONE 1000 MG/VIAL ONE (12:55)
[2024-09-14] MEDS ORDERED: CEFDINIR 300 MG CAP PO ONE (12:55)
[2024-09-14 12:57] LABS: Anisocytosis 1+; Blood Morphology Comment NOTED (NOT SEEN); Ovalocytes SLIGHT; Platelet Estimate ADEQ; White Blood Cell Scan OK (OK)
[2024-09-14 13:53] VITALS: TEMP 98.8
[2024-09-14 13:55] VITALS: BP 170/74; O2SAT 96
== END 2024-09-14 13:43 | disposition home or self-care (01) ==
LOC: ER 10:21
DX: S22.31XA Fracture of one rib, right side, initial encounter for closed fracture (principal); S20.211A Contusion of right front wall of thorax, initial encounter; N39.0 Urinary tract infection, site not specified; W18.30XA Fall on same level, unspecified, initial encounter; E11.9 Type 2 diabetes mellitus without complications; J44.9 Chronic obstructive pulmonary disease, unspecified; I10 Essential (primary) hypertension; E78.00 Pure hypercholesterolemia, unspecified
CPT/HCPCS: 87088; 85025; 81001; 87086; 36415; 82565; 87077; 87186; 80053; 70450; 72125; 71260; 74177; 71045; 99284; Q9967; J7040; J0696